=== PATIENT | female | born 1945 | race Caucasian/White ===

== ENCOUNTER → 2016-12-17 | Outpatient (CLI) | payer BC, MEDICAID ==
[~2016-12-17] MED LIST: ATOR40TA59 PO; DICL100G18 TP; DONE5TAB7 PO; ETOD400T PO; EZET10TA18 PO; LOSA50TA6 PO; MIRT15TA3 PO; TRAZ150T49 PO
[2016-12-17 09:17] LABS: BASO # 0.1 x10^3/uL (0.0-0.2); BASO % 1 % (0-3); EOS % 4 % (0-3); HEMATOCRIT 42.5 % (36.0-47.0); HEMOGLOBIN 14.8 g/dL (12.0-15.5); LYMPH # 2.3 x10^3/uL (1.0-4.8); LYMPH % 31 % (24-48); MEAN CORPUSCULAR HEMOGLOBIN 29 pg (25-35); MEAN CORPUSCULAR HGB CONC 35 g/dL (31-37); MEAN CORPUSCULAR VOLUME 83 fL (79-100); MONO % 10 % (0-9); NEUT % 54 % (31-73); PLATELET COUNT 233 x10^3/uL (140-400); RED CELL DISTRIBUTION WIDTH 13.5 % (11.5-14.5); WHITE BLOOD COUNT 7.4 x10^3/uL (4.0-11.0)
[2016-12-17 09:24] LABS: CALCIUM 9.2 mg/dL (8.5-10.1); POTASSIUM 4.6 mmol/L (3.5-5.1)
[2016-12-17 09:28] LABS: INR 1.1 (0.8-1.1); PROTHROMBIN TIME PATIENT 13.1 SEC (11.7-14.0)
[2016-12-17 09:29] LABS: % SAT IRON 27 % (15-34); IRON,SERUM 95 ug/dL (50-170)
[2016-12-17 12:37] LABS: BILIRUBIN,URINE SMALL (NEG); GLUCOSE,URINE NEGATIVE (NEG); NITRITE,URINE NEGATIVE (NEG); PH,URINE 5.5; PROTEIN,URINE NEGATIVE (NEG-TRACE); UROBILINOGEN,URINE 0.2 mg/dL (0.2 mg/dL)
[2016-12-17 12:58] LABS: BACTERIA,URINE 0 /HPF (0-FEW); RBC,URINE 0 /HPF (0-2); SQUAMOUS EPITHELIAL CELL,UR FEW /LPF
--- NOTE | 2016-12-17 13:33 | RAD ---
Indication cough for 2 months. Preop evaluation. Anticipated joint replacement. PA and lateral views of the chest were obtained. Comparison is made to an exam 03/26/2016. The heart and pulmonary vessels are within normal limits. There are calcified left hilar lymph nodes. There is a retrosternal nodule, probably representing a calcified granuloma similar to the previous examination as well. IMPRESSION: No acute finding in the chest
--- NOTE | 2016-12-17 14:08 | EKG ---
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
[2016-12-17 14:33] VITALS: BP 133/89
== END | disposition home or self-care (01) ==
LOC: SURGPAT 10:20
PROVIDERS: ATTEND Orthopaedic Surgery
DX: Z01.818 Encounter for other preprocedural examination (principal); M17.12 Unilateral primary osteoarthritis, left knee; R05 Cough; I10 Essential (primary) hypertension
CPT/HCPCS: 36415; 71020; 80048; 81001; 83540; 83550; 84134; 84466; 85027; 85610; 85651; 85730; 87086; 87641; 93005

== ENCOUNTER 2017-01-08 09:14 | Inpatient (IN) | payer BC, MEDICAID ==
--- NOTE | 2017-01-07 11:40 | PDOC1 ---
History and Physical Date of Admission Date of Admission DATE: 01/08/17 Identification/Chief Complaint Chief Complaint left knee osteoarthritis pain Problems: Source Source: Chart review History of Present Illness History of Present Illness The patient is a 71 year old [id number], retired female with left knee pain. She has been walking often but not attending physical therapy. She has been applying Voltaren gel and taking hydrocodone for the pain. She has daily left knee pain. She has a history of gastric bypass surgery. Past Medical History Cardiovascular: HTN, Hyperlipidemia CENTRAL NERVOUS SYSTEM: Other (memory loss) Past Surgical History Past Surgical History: Hysterectomy (), Other (bilateral rotator cuff repair 2006) Family History Family History: Cancer, Hypertension Social History Smoke: No ALCOHOL: none Drugs: None Current Medications Current Medications Active Scripts Active Reported Trazodone Hcl 150 Mg Tablet 150 Mg PO HS Atorvastatin Calcium 40 Mg Tablet 40 Mg PO HS Mirtazapine 15 Mg Tablet 1 Tab PO QHS Etodolac 400 Mg Tablet 400 Mg PO DAILY Donepezil Hcl 5 Mg Tablet 5 Mg PO HS Zetia (Ezetimibe) 10 Mg Tablet 10 Mg PO HS Losartan Potassium 50 Mg Tablet 50 Mg PO DAILY Voltaren (Diclofenac Sodium) 100 Gm Gel..gram. 1 Gm TP QID Allergies Allergies: Coded Allergies: bupivacaine (Verified Allergy, Intermediate, Rash, 12/14/16) lidocaine (Verified Allergy, Intermediate, Rash, 12/14/16) nickel (Verified Allergy, Intermediate, Rash, 12/14/16) Physical Exam General: Alert, Oriented X3, Cooperative, No acute distress HEENT: Atraumatic, EOMI Lungs: Normal air movement Heart: RRR Abdomen: Soft Extremities: No clubbing, No cyanosis, Normal pulses, Other (LEFT KNEE: there are no masses or detectable effusion. Trace valgus alignment. The left knee shows active range of motion from 5-100 degrees. There is crepitus felt with motion and pain at the extremes of motion. There is tenderness to palpation along the medial and lateral joint lines. The knee is stable to varus and valgus stress, without subluxation or laxity. Quadriceps and hamstring show normal strength 5/5, with normal muscle tone. RIGHT KNEE: Trace varus alignment alignment, no masses and no effusion. No tenderness to palpation. Range of motion is 0-125 degrees, without crepitus or pain at the extremes of motion. The knee is stable to varus and valgus stress without subluxation or laxity. Muscle strength is normal (5/5) for quadriceps and hamstrings, and muscle tone is normal. The skin is normal with no scars, rashes, lesions or ulcers. Light touch sensation is intact. No edema and no varicosities. Dorsalis pedis pulse is intact and capillary refill is normal.) Skin: No rashes, No breakdown, No significant lesion Neuro: Normal speech, Sensation intact Psych/Mental Status: Mental status NL, Mood NL VTE Prophylaxis Ordered VTE Prophylaxis Devices: Yes VTE Pharmacological Prophylaxi: Yes Assessment/Plan Assessment/Plan Left knee osteoarthritis pain. The left knee is symptomatic with osteoarthritis. She has tried nonoperative treatment without success. She was considering total knee arthroplasty when she was in [place] but was trying to lose more weight before doing that. She is down to 221 pounds, and her BMI is now approximately 37. I think it is reasonable to consider proceeding since she is 71 years old. She has symptomatic knee arthritis that bothers her most days, and prevents her from walking for exercise. She tried topical NSAIDs, and she has been taking occasional hydrocodone for the pain. She does have some hypersensitive skin and metal sensitivity, so I would recommend Oxinium, journey two knee arthroplasty. I also will check some additional labs including prealbumin and transferrin due to her prior gastric bypass. I discussed that there are increased risks of infection, rather complications due to prior gastric bypass. Her right knee has some osteoarthritis radiographically but is asymptomatic, so no treatment is required. She has good range of motion and strength on the right knee. We discussed the potential risks of infection, neurovascular injury, bleeding, blood clots, need for revision surgery, or other potential surgical or anesthetic complications. Her daughter was here and we discussed the expected rehabilitation and recovery. All of their questions were answered and they desire to proceed with a left total knee arthroplasty at a mutually convenient date. We will request medical clearance from her primary physician, Dr. Kim. KAITLYN GUILLEN Jan 07, 2017 11:40
[~2017-01-08] VITALS: Ht 165.1 cm; Wt 102.1 kg
[2017-01-08] VITALS (7 sets, daily range): BP systolic 109–159; BP diastolic 65–93
[~2017-01-08 09:14] MED LIST changes: +CELECOXIB 200 MG CAPSULE. PO PRN; +HYDROcodone/APAP 7.5/325MG 1 TAB TABLET PO PRN; +IV RINGERS,LACTATED 1000ML 1,000 ML IV SCH; +PROCHLORPERAZINE 10 MG/2 ML VIAL. IV PRN; +TRANEXAMIC ACID 1,000 MG in IV NS 50ML -- 1ST BAG INJ ONE; +TRANEXAMIC ACID 1,000 MG in IV NS 50ML -- 2ND BAG INJ ONE; +fentaNYL PF VIAL 100 MCG/2 ML VIAL IV PRN
[2017-01-08] MEDS ORDERED: CELE200C PO (10:10)
[2017-01-08] MEDS ORDERED: DEXAMETHASONE SOD PHOS 20 MG/5 ML VIAL. ONE (11:14)
[2017-01-08] MEDS ORDERED: PROPOFOL 20 ML IV ONE (11:14)
[2017-01-08] MEDS ORDERED: FAMOTIDINE 20 MG/2 ML VIAL ONE (11:14)
[2017-01-08] MEDS ORDERED: ROCURONIUM 50 MG/5 ML VIAL. ONE (11:15)
[2017-01-08] MEDS ORDERED: MIDAZOLAM HCL/PF 2 MG/2 ML VIAL. ONE (11:15)
[2017-01-08] MEDS ORDERED: ONDANSETRON PF 4 MG/2 ML VIAL. ONE (11:15)
[2017-01-08] MEDS ORDERED: fentaNYL PF VIAL 100 MCG/2 ML VIAL ONE ×2 (11:15→12:37)
[2017-01-08] MEDS ORDERED: ePHEDrine PF IN SALINE 50 MG/5 ML DISP.SYRIN IV ONE (12:03)
[2017-01-08] MEDS ORDERED: GLYCOPYRROLATE 1 MG/5 ML VIAL. ONE (12:07)
[2017-01-08] MEDS ORDERED: VANCOMYCIN 1 GM VIAL. ONE (12:28)
[2017-01-08] MEDS ORDERED: TOBRAMYCIN POWDER 1.2 GM VIAL. ONE (12:29)
[2017-01-08] MEDS ORDERED: NEOSTIGMINE METHYLSULFATE 5 MG/5 ML SYRINGE. ONE (13:20)
[2017-01-08] MEDS ORDERED: DESFLURANE > 120 MINUTES IH ONE (13:40)
--- NOTE | 2017-01-08 13:53 | PDOC4 ---
Operative Note Operative Note Date of Procedure: January 08, 2017 Pre-Op Diagnosis: Osteoarthritis left knee Post-Op Diagnosis: Osteoarthritis left knee Procedure: left total knee arthroplasty Surgeon: Gerald Cristina MD Teleradiologist: Nathalie Michelle PA-C Anesthesia: General EBL: 100 mL Specimens Obtained: left knee bone and soft tissue Complications: none Implant Company: [employer] Drains: Hemovac Tourniquet time: 51 Minutes Tourniquet Pressure: 350 mm Hg Indications for Procedure: Arthritis pain unrelieved by nonoperative management. Findings: Severe osteoarthritis with bone on bone contact in all three compartments Implants used: Size 4 left bicruciate stabilized Journey II BCS Oxinium femoral component, size 4 left Journey nonporous tibial baseplate, size 3-4 11 mm left Journey II BCS XLPE articular insert, 35 mm oval Luz II resurfacing patellar component Procedure in Detail: The patient was identified in the preoperative holding area, and the correct left lower extremity was marked by me. The patient was taken to the operating room where the patient was anesthetized by the Department of Anesthesia. Preoperative antibiotics were given intravenously. Tranexamic acid 1 g was given intravenously for intraoperative hemostasis. A "time-out" procedure was performed. The patient was positioned supine on the operative table with a tourniquet on the upper left thigh. The left lower limb was thoroughly prepped and draped in sterile fashion. An impervious stockinet and adhesive drape were used such that the skin was entirely covered. An Garibay leg berger was used. The operating team wore personal exhaust-ventilated hoods. The tourniquet was inflated to 350 Hg. A midline skin incision was made with a scalpel using the patella and tibial tubercle as landmarks. Electrocautery was used for hemostasis. My assistant spa director used rake retractors. A medial parapatellar arthrotomy incision was used with extension into the distal quadriceps tendon. The patella was retracted laterally and Hohmann retractors were now used by my assistant spa director. Excess synovium, the menisci, and the cruciate ligaments were resected sharply. The patella was assessed and excess synovium and osteophytes around the patellar articulation were removed. The patella was measured with a caliper, cut freehand with a saw using caliper measurements, sized, and then drilled for an oval three-pegged patella component. Whitesides's line was assessed on the femur. An intra-medullary 5 degree cutting guide was pinned to the femur, and a distal femoral cut was made with an oscillating saw. An additional 4 mm resection was used due to the deep femoral sulcus, and deficient femoral condyle. My assistant spa director held Hohmann retractors and an Army-[place] retractor to protect the medial and lateral collateral ligaments, the patellar tendon, the skin and the other soft tissues. An anterior referencing guide was applied with external rotation of 3 to match Whitesides line. A 5-in-1 Journey II cutting guide was then applied and pinned to the femur. The posterior, anterior, and all chamfer cuts were made with the oscillating saw. An extramedullary guide was pinned to the tibia and rotational alignment and the planned resection thickness assessed. An external alignment margarita was used to verify the planned cut in the varus-valgus plane and regarding posterior slope referencing the tibial tubercle, the tibial shaft, the ankle joint, and the second metatarsal. The upper tibia was cut made with an oscillating saw. My assistant spa director held Hohmann retractors and a posterior cruciate ligament retractor to protect the medial and lateral collateral ligaments, the patellar tendon, the skin, the peroneal nerve and the other soft tissues. The upper tibia was sized with a trial baseplate. The posterior compartment was cleared of osteophytes and loose bodies, and posterior capsule released. Sharee-articular injection was used in the posterior compartment. The box cut for a posterior stabilized component was made. A preliminary reduction was performed with a trial femur, trial tibial baseplate and trial polyethylene. Soft-tissue balancing was now performed, and extension and rotation of the alignments was checked using a guide margarita in the tibial trial and a guide pin in the femur. A medial release was required, using a 10 blade scalpel, and a Pollard elevator to elevate the medial structures from the upper medial tibia. The stability was assessed using different thicknesses of tibial articular surface to find satisfactory stability and good range of motion. The rotation of the tibial component was marked on the upper tibia. Final trial reduction was now performed verifying patella tracking and tibiofemoral stability and alignment. The tibia preparation was completed with a drill, saw, and fin punch at the previously noted rotation. The final implants were verified and opened. Outer gloves were changed by the operating team. The bone cuts were washed thoroughly with the [employer] InterPulse device and dried. Two packages of George [employer] Nephew Rally HV bone cement were mixed in powdered form with 1 gm of Vancomycin and 1.2 g tobramycin, then vacuum-mixed with the monomer , and placed into a cement gun. The cut surfaces of the bone were thoroughly dried with Talavera-tip suction and with laparotomy sponges for cement interdigitation. The final components were cemented into place. The knee was kept at full extension while the cement hardened, and excess cement was removed. Tranexamic acid 1 g was redosed intravenously for additional intraoperative hemostasis. The tourniquet was released, and electrocautery was used for hemostasis. A final check of [id number] and stability was made, and the polyethylene implant final size was chosen. The polyethylene implant was secured to the tibial baseplate, and the knee was reduced a final time. Thorough irrigation was used. A Hemovac was inserted. No periarticular injection was used in this patient due to her allergy to all mirza, and normally Ropivacaine would be used. The arthrotomy was closed with interrupted [id number] #1 PDS suture. The arthrotomy incision was then run with #1 STRATAFIX Symmetric PDS Plus Knotless suture. The subcutaneous tissues were closed with #2-0 Vicryl by my assistant spa director. The skin was approximated with STRATAFIX Spiral MONOCRYL Plus Knotless suture by my assistant spa director. The skin incision was then covered and reinforced with Dermabond Prineo mesh skin closure dressing. A bulky sterile gauze dressing was applied. Needle and sponge counts were correct. GERALD CRISTINA MD Jan 08, 2017 13:53
[2017-01-08] MEDS: fentaNYL PF VIAL 100 MCG/2 ML VIAL IV PRN ×5 (14:12→18:43)
[2017-01-08] MEDS: MORPHINE SULFATE 2 MG/ML DISP.SYRIN. IV PRN ×2 (14:16→14:27)
[2017-01-08] MEDS ORDERED: IV DEXTROSE 5 %-0.45 % NACL 1,000 ML IV SCH (14:21)
[2017-01-08] MEDS ORDERED: ZOLPIDEM 5 MG TABLET. PO PRN (14:30)
[2017-01-08] MEDS ORDERED: MORPHINE SULFATE 4 MG/ML DISP.SYRIN. IV PRN ×2 (14:30)
[2017-01-08] MEDS ORDERED: PROCHLORPERAZINE 10 MG/2 ML VIAL. IV PRN (14:30)
[2017-01-08] MEDS ORDERED: traMADol 50 MG TABLET PO PRN ×2 (14:30)
[2017-01-08] MEDS ORDERED: oxyCODONE/APAP 7.5/325 1 TAB TABLET PO PRN (14:30)
[2017-01-08] MEDS ORDERED: ACETAMINOPHEN 325 MG TABLET. PO PRN (14:30)
[2017-01-08] MEDS ORDERED: CALCIUM CARBONATE 500 MG TAB.CHEW PO PRN (14:30)
[2017-01-08] MEDS ORDERED: MORPHINE SULFATE 2 MG/ML DISP.SYRIN. IV PRN (14:30)
[2017-01-08] MEDS ORDERED: 0.9 % SODIUM CHLORIDE 10 ML DISP.SYRIN. IV PRN (14:30)
[2017-01-08] MEDS ORDERED: DEXTROSE 50% 25 GM / 50ML DISP.SYRIN. IV PRN (14:30)
[2017-01-08] MEDS ORDERED: HYDROcodone/APAP 10/325 1 TAB TABLET PO PRN (14:30)
[2017-01-08] MEDS ORDERED: fentaNYL PF VIAL 100 MCG/2 ML VIAL IV PRN ×2 (14:30)
[2017-01-08] MEDS ORDERED: diphenhydrAMINE 50 MG/ML VIAL IV PRN (14:30)
[2017-01-08] MEDS ORDERED: PROCHLORPERAZINE 5 MG TABLET. PO PRN (14:30)
[2017-01-08] MEDS ORDERED: MORPHINE SULFATE 10 MG/ML VIAL. IV PRN (14:30)
[2017-01-08] MEDS ORDERED: METOCLOPRAMIDE HCL 10 MG/2 ML VIAL. IV PRN (14:30)
[2017-01-08] MEDS: HYDROmorphone 2 MG/ML VIAL IV PRN ×4 (14:37→15:19)
[2017-01-08] MEDS ORDERED: MORPHINE SULFATE 10 MG/ML VIAL. IV ONE (14:45)
[2017-01-08] MEDS: SENNOSIDES/DOCUSATE 8.6/50MG TABLET. PO SCH (15:00)
[2017-01-08] MEDS: MULTIVITAMIN with MINERAL TABLET. PO SCH (15:00)
--- NOTE | 2017-01-08 15:04 | RAD ---
Left knee radiograph 01/08/2017 at 1440 hours Indication: Postoperative evaluation. Comparison: None available Technique: 2 views including an AP and lateral view of the knee are provided. Findings: A left total knee arthroplasty is identified with components in expected alignment. No periprosthetic lucency is identified. No periprosthetic fracture is present. Surgical drain overlies the left lateral knee. Patellar resurfacing is noted. Subcutaneous gas and edema are compatible with recent postoperative changes. Impression: Expected postoperative changes from left total knee arthroplasty. No periprosthetic fracture.
[2017-01-08] MEDS: FERROUS SULFATE 325 MG TABLET. PO SCH (17:00)
[2017-01-08] MEDS: LOSARTAN POTASSIUM 50 MG TABLET. PO SCH (18:47)
[2017-01-08] MEDS: DONEPEZIL HCL 5 MG TABLET. PO SCH (22:02)
[2017-01-08] MEDS: CELECOXIB 200 MG CAPSULE. PO SCH (22:02)
[2017-01-08] MEDS: ASPIRIN ENTERIC COATED 325 MG TABLET.DR. PO SCH (22:02)
[2017-01-08] MEDS: EZETIMIBE 10 MG TABLET. PO SCH (22:03)
[2017-01-08] MEDS: ATORVASTATIN CALCIUM 40 MG TABLET. PO SCH (22:03)
[2017-01-08] MEDS: DICLOFENAC SODIUM 25 MG TABLET.DR PO SCH (22:03)
[2017-01-08] MEDS: traZODone 50 MG TABLET. PO SCH (22:03)
[2017-01-08] MEDS: MIRTAZAPINE 15 MG TABLET PO SCH (22:53)
[2017-01-09 03:01] VITALS: BP 120/74
[2017-01-09] MEDS ORDERED: MAGNESIUM HYDROXIDE 2,400 MG/30 ML ORAL.SUSP. PO PRN (06:00)
[2017-01-09 06:30] VITALS: BP 120/70
[2017-01-09] MEDS: ASPIRIN ENTERIC COATED 325 MG TABLET.DR. PO SCH ×2 (08:54→20:52)
[2017-01-09] MEDS: MULTIVITAMIN with MINERAL TABLET. PO SCH (08:54)
[2017-01-09] MEDS: CELECOXIB 200 MG CAPSULE. PO SCH ×2 (08:54→20:51)
[2017-01-09] MEDS: SENNOSIDES/DOCUSATE 8.6/50MG TABLET. PO SCH (08:54)
[2017-01-09] MEDS: FERROUS SULFATE 325 MG TABLET. PO SCH ×2 (08:54→17:21)
[2017-01-09] MEDS: HYDROcodone/APAP 7.5/325MG 1 TAB TABLET PO PRN (08:55)
[2017-01-09] MEDS: DICLOFENAC SODIUM 25 MG TABLET.DR PO SCH ×2 (08:55→20:52)
--- NOTE | 2017-01-09 10:13 | PDOC ---
PROGRESS NOTES Subjective Subjective Confused today. Didn't realize that she had surgery yesterday. Pain controlled. Objective Vital Signs Vital Signs Date Time Temp Pulse Resp B/P (MAP) Pulse Ox O2 Delivery O2 Flow Rate FiO2 01/09/17 08:55 20 01/09/17 07:42 Room Air 01/09/17 06:30 98.6 59 120/70 (87) 96 2.0 98.6 Physical Exam Dressing dry. Per Radha RN, patient pulled Hemovac out. Good dorsiflexion and plantarflexion of the foot with no evidence of neurovascular injury or DVT. Calves are soft and non-tender. Negative Homans. Peripheral pulses and light touch sensation intact. Imaging Postoperative x-rays reviewed by me, showing satisfactory total knee replacement , with no apparent complications. Assessment Assessment POD #1 TKA Problems: Plan Plan of Care Continue POC including DVT prophylaxis and physical therapy. KAITLYN GUILLEN Jan 09, 2017 10:13
[2017-01-09] MEDS: oxyCODONE/APAP 5/325 1 TAB TABLET PO PRN ×2 (12:57→17:22)
[2017-01-09] MEDS ORDERED: BISACODYL 10 MG SUPP.RECT. PR PRN (16:00)
[2017-01-09 18:12] VITALS: BP 116/73
[2017-01-09] MEDS: MIRTAZAPINE 15 MG TABLET PO SCH (20:51)
[2017-01-09] MEDS: ATORVASTATIN CALCIUM 40 MG TABLET. PO SCH (20:51)
[2017-01-09] MEDS: DONEPEZIL HCL 5 MG TABLET. PO SCH (20:51)
[2017-01-09] MEDS: traZODone 50 MG TABLET. PO SCH (20:52)
[2017-01-09] MEDS: EZETIMIBE 10 MG TABLET. PO SCH (20:52)
[2017-01-10 05:00] VITALS: BP 133/64
[2017-01-10 07:22] LABS: HEMATOCRIT 32.6 % (36.0-47.0); HEMOGLOBIN 10.9 g/dL (12.0-15.5)
[2017-01-10] MEDS: FERROUS SULFATE 325 MG TABLET. PO SCH ×2 (09:03→16:48)
[2017-01-10] MEDS: MULTIVITAMIN with MINERAL TABLET. PO SCH (09:04)
[2017-01-10] MEDS: ASPIRIN ENTERIC COATED 325 MG TABLET.DR. PO SCH ×2 (09:04→21:09)
[2017-01-10] MEDS: CELECOXIB 200 MG CAPSULE. PO SCH ×2 (09:04→21:09)
[2017-01-10] MEDS: DICLOFENAC SODIUM 25 MG TABLET.DR PO SCH ×2 (09:04→21:08)
[2017-01-10] MEDS: SENNOSIDES/DOCUSATE 8.6/50MG TABLET. PO SCH (09:04)
[2017-01-10] MEDS: LOSARTAN POTASSIUM 50 MG TABLET. PO SCH (09:05)
--- NOTE | 2017-01-10 12:34 | PDOC ---
PROGRESS NOTES Subjective Subjective Doing well. Only reports mild pain increase from yesterday. Objective Vital Signs Vital Signs Date Time Temp Pulse Resp B/P (MAP) Pulse Ox O2 Delivery O2 Flow Rate FiO2 01/10/17 09:05 61 133/64 01/10/17 05:00 98.0 19 96 Room Air 98.0 01/09/17 06:30 2.0 Physical Exam Expected swelling. Pain catheter and drain have been removed. Incision with spotty drainage only from drain sites. Prineo intact and dry. Calf soft and nontender. Negative Homans sign. Good AROM ankle. Peripheral pulses and light touch sensation intact. Labs Laboratory Tests Test 01/10/17 07:06 Hemoglobin 10.9 g/dL (12.0-15.5) Hematocrit 32.6 % (36.0-47.0) Mean Corpuscular Hemoglobin Concent 33 g/dL (31-37) Laboratory Tests Test 01/10/17 07:06 Hemoglobin 10.9 g/dL (12.0-15.5) Hematocrit 32.6 % (36.0-47.0) Mean Corpuscular Hemoglobin Concent 33 g/dL (31-37) Imaging X-rays independently reviewed by me and show satisfactory TKA alignment and no apparent complications. Assessment Assessment POD2, TKA Problems: Plan Plan of Care Continue DVT prophylaxis and physical therapy. Planned discharge tomorrow. Office F/U in 10-14 days. GERALD SAPP MD Jan 10, 2017 12:34
[2017-01-10] MEDS: HYDROcodone/APAP 7.5/325MG 1 TAB TABLET PO PRN (12:35)
[2017-01-10 18:03] VITALS: BP 115/74
[2017-01-10] MEDS: DONEPEZIL HCL 5 MG TABLET. PO SCH (21:09)
[2017-01-10] MEDS: ATORVASTATIN CALCIUM 40 MG TABLET. PO SCH (21:09)
[2017-01-10] MEDS: MIRTAZAPINE 15 MG TABLET PO SCH (21:09)
[2017-01-10] MEDS: traZODone 50 MG TABLET. PO SCH (21:09)
[2017-01-10] MEDS: EZETIMIBE 10 MG TABLET. PO SCH (21:09)
[2017-01-11 06:09] VITALS: BP 126/79
[2017-01-11 07:38] LABS: HEMATOCRIT 31.3 % (36.0-47.0); HEMOGLOBIN 10.7 g/dL (12.0-15.5)
[2017-01-11] MEDS: HYDROcodone/APAP 7.5/325MG 1 TAB TABLET PO PRN (08:52)
[2017-01-11] MEDS: MULTIVITAMIN with MINERAL TABLET. PO SCH (08:52)
[2017-01-11] MEDS: ASPIRIN ENTERIC COATED 325 MG TABLET.DR. PO SCH (08:52)
[2017-01-11] MEDS: SENNOSIDES/DOCUSATE 8.6/50MG TABLET. PO SCH (08:52)
[2017-01-11] MEDS: CELECOXIB 200 MG CAPSULE. PO SCH (08:52)
[2017-01-11] MEDS: DICLOFENAC SODIUM 25 MG TABLET.DR PO SCH (08:52)
[2017-01-11] MEDS: FERROUS SULFATE 325 MG TABLET. PO SCH (08:53)
[2017-01-11] MEDS: LOSARTAN POTASSIUM 50 MG TABLET. PO SCH (08:53)
[2017-01-11 12:10] VITALS: BP 106/74
--- NOTE | 2017-01-11 14:13 | PDOC ---
PROGRESS NOTES Subjective Subjective Doing better today. Pain is controlled. Objective Vital Signs Vital Signs Date Time Temp Pulse Resp B/P (MAP) Pulse Ox O2 Delivery O2 Flow Rate FiO2 01/11/17 12:10 97.8 91 20 106/74 (85) 95 Room Air 97.8 01/10/17 20:02 2.0 Physical Exam Prineo dressing dry and intact. Calf soft and nontender with a negative Oseas's sign. Good dorsiflexion and plantarflexion with no evidence of neurovascular injury. Peripheral pulses and light touch sensation intact. Labs Laboratory Tests Test 01/10/17 07:06 01/11/17 06:50 Hemoglobin 10.9 g/dL (12.0-15.5) 10.7 g/dL (12.0-15.5) Hematocrit 32.6 % (36.0-47.0) 31.3 % (36.0-47.0) Mean Corpuscular Hemoglobin Concent 33 g/dL (31-37) 34 g/dL (31-37) Laboratory Tests Test 01/11/17 06:50 Hemoglobin 10.7 g/dL (12.0-15.5) Hematocrit 31.3 % (36.0-47.0) Mean Corpuscular Hemoglobin Concent 34 g/dL (31-37) Assessment Assessment POD #3 left TKA Problems: Plan Plan of Care Continue POC including DVT ppx with ASA 325mg twice daily and therapy. Discharge this afternoon to daughter's house with home health. KAITLYN GUILLEN Jan 11, 2017 14:13
--- NOTE | 2017-01-11 14:15 | PDOC3 ---
Discharge Summary Visit Information Date of Admission: Jan 08, 2017 Date of Discharge: Jan 11, 2017 Admitting Diagnosis: left knee osteoarthritis pain Brief Hospital Course Allergies Allergies Coded Allergies Type Severity Reaction Last Updated Verified bupivacaine Allergy Intermediate Rash 01/08/17 Yes lidocaine Allergy Intermediate Rash 01/08/17 Yes nickel Allergy Intermediate Rash 01/08/17 Yes Vital Signs Vital Signs Date Time Temp Pulse Resp B/P (MAP) Pulse Ox O2 Delivery O2 Flow Rate FiO2 01/11/17 12:10 97.8 91 20 106/74 (85) 95 Room Air 97.8 01/10/17 20:02 2.0 Lab Results Laboratory Tests Test 01/10/17 07:06 01/11/17 06:50 Hemoglobin 10.9 g/dL (12.0-15.5) 10.7 g/dL (12.0-15.5) Hematocrit 32.6 % (36.0-47.0) 31.3 % (36.0-47.0) Mean Corpuscular Hemoglobin Concent 33 g/dL (31-37) 34 g/dL (31-37) Laboratory Tests Test 01/11/17 06:50 Hemoglobin 10.7 g/dL (12.0-15.5) Hematocrit 31.3 % (36.0-47.0) Mean Corpuscular Hemoglobin Concent 34 g/dL (31-37) Brief Hospital Course 71 year old female who presented with left knee osteoarthritis, for elective total knee arthroplasty. The patient underwent left total knee arthroplasty under general anesthesia the day of admission. Perioperative antibiotics and DVT prophylaxis were used. Postoperatively physical therapy and case management were consulted. The patient progressed and is stable for discharge. Discharge Information Condition at Discharge: Stable Follow Up: Weeks (2) Disposition/Orders: D/C to Home w/ HH (daughter's house) Scheduled Atorvastatin Calcium (Atorvastatin Calcium), 40 MG PO HS, (Reported) Celecoxib (Celebrex), 1 CAP PO ONCE, (Reported) Diclofenac Sodium (Voltaren), 1 GM TP QID, (Reported) Donepezil Hcl (Donepezil Hcl), 5 MG PO HS, (Reported) Etodolac (Etodolac), 400 MG PO DAILY, (Reported) Ezetimibe (Zetia), 10 MG PO HS, (Reported) Losartan Potassium (Losartan Potassium), 50 MG PO DAILY, (Reported) Mirtazapine (Mirtazapine), 1 TAB PO QHS, (Reported) Trazodone Hcl (Trazodone Hcl), 150 MG PO HS, (Reported) Patient Instructions Patient Instructions Patient Instructions Continue to WBAT with walker. Keep dressing dry and intact. F/U with [facility] in 10-14 days. Call for appointment. Physical therapy for TKA Continue DVT prophylaxis with aspirin 325mg twice daily. KAITLYN GUILLEN Jan 11, 2017 14:15
--- NOTE | 2017-01-11 15:12 | PATHOLOGY ---
PATHOLOGY REPORT * * * * * * * * FINAL DIAGNOSIS: Bone and soft tissue, "left knee tissue," joint resection: - Degeneration of cartilage consistent with degenerative joint disease. (SHA:mgr; 01/11/2017) REPORT ELECTRONICALLY SIGNED BY: Natan Angeles M.D. DATE/TIME: 01/11/2017 15:12 * * * * * * * * GROSS PATHOLOGY: The specimen is received in formalin, labeled "Judy left knee tissue", and consists of several bony and some soft tissues representing portions of a resected knee joint having an aggregate weight of 61 g. One of the larger bone fragments consists of a portion of tibial plateau measuring 7 3 1.4 cm. Fragments of femoral condyles measure up to 5.8 4 1.3 cm. A portion of patella measures 4.2 2.5 0.7 cm. Attached to the peripheral aspect of some soft tissues are small portions of the synovium. Fragments of the menisci are not grossly identified. Articular surfaces of several bone fragments of scattered irregular granular and pitted regions associated with partial loss or thinning of overlying cartilage. One irregular area measures 4.5 2.5 cm. A smooth glossy region consistent with eburnated bone measures 1.2 1.2 cm. Several regions of peripheral bone have elevated nodular ridges of osteocartilaginous hypertrophy. Local Announcer sections are patel 9 bmitted designated A1 following decalcification of bone. ([facility]; 01/10/2017) INITIAL CPT CODE(S): A; 05531, 48940 Professional services performed [place] [address] Technical services performed by [facility] at [address] [place] [address] [address], [place] [address]. SPECIMEN(S) RECEIVED: A.Left knee tissue CLINICAL HISTORY: Left knee OA PATIENT: JARED ROCK /AGE: 12 1945 (Age: 71) PATIENT #: [id number] ALT CASE #: SPECIMEN COLLECTION DATE: 01/08/2017 SPECIMEN RECEIVED DATE: 01/09/2017 [facility] - [id number] [place] [address] - PHONE: [phone] * * * END OF REPORT * * *
== END 2017-01-11 16:11 | disposition home health service (06) | DRG 470 ==
LOC: OPSVCIP 09:14 → 4 SOUTHEST 15:44
PROVIDERS: ADMIT Orthopaedic Surgery; ATTEND Orthopaedic Surgery
PROC: 0SRD0J9 Replacement of Left Knee Joint with Synthetic Substitute, Cemented, Open Approach (ICD-10-PCS; principal; 2017-01-08 12:30)
DX: M17.12 Unilateral primary osteoarthritis, left knee (principal); I10 Essential (primary) hypertension; E78.5 Hyperlipidemia, unspecified; Z90.710 Acquired absence of both cervix and uterus; Z82.49 Family history of ischemic heart disease and other diseases of the circulatory system; Z98.84 Bariatric surgery status; Z88.8 Allergy status to other drugs, medicaments and biological substances
CPT/HCPCS: 36415; 73560; 85014; 85018; 86850; 86900; 86901; 88305; 88311; J0690; J1100; J1170; J2250; J2270; J2405; J2704; J2710; J3010; J3260; J3370; J3490; J7030; J7120; S0028; 97150; 97530; 97535; C1769

== ENCOUNTER 2017-05-20 15:33 | Inpatient (IN) | payer BC, MEDICAID ==
[~2017-05-20] VITALS: Ht 162.6 cm; Wt 94.8 kg
[~2017-05-20 15:33] MED LIST changes: +CELE200C PO; -CELECOXIB 200 MG CAPSULE. PO PRN; -HYDROcodone/APAP 7.5/325MG 1 TAB TABLET PO PRN; -IV RINGERS,LACTATED 1000ML 1,000 ML IV SCH; -PROCHLORPERAZINE 10 MG/2 ML VIAL. IV PRN; -TRANEXAMIC ACID 1,000 MG in IV NS 50ML -- 1ST BAG INJ ONE; -TRANEXAMIC ACID 1,000 MG in IV NS 50ML -- 2ND BAG INJ ONE; -fentaNYL PF VIAL 100 MCG/2 ML VIAL IV PRN
[2017-05-20 16:11] LABS: BILIRUBIN,URINE SMALL (NEG); GLUCOSE,URINE NEGATIVE (NEG); NITRITE,URINE NEGATIVE (NEG); PROTEIN,URINE NEGATIVE (NEG-TRACE); UROBILINOGEN,URINE 0.2 mg/dL (0.2 mg/dL)
--- NOTE | 2017-05-20 16:12 | EKG ---
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
[2017-05-20] MEDS ORDERED: fentaNYL PF VIAL 100 MCG/2 ML VIAL IV ONE (16:15)
[2017-05-20] MEDS ORDERED: IV NORMAL SALINE 500ML BAG 500 ML IV ONE (16:15)
[2017-05-20 16:19] LABS: BASO # 0.1 x10^3/uL (0.0-0.2); BASO % 1 % (0-3); EOS % 1 % (0-3); HEMATOCRIT 44.3 % (36.0-47.0); HEMOGLOBIN 14.6 g/dL (12.0-15.5); LYMPH # 1.3 x10^3/uL (1.0-4.8); LYMPH % 10 % (24-48); MEAN CORPUSCULAR HEMOGLOBIN 27 pg (25-35); MEAN CORPUSCULAR HGB CONC 33 g/dL (31-37); MEAN CORPUSCULAR VOLUME 83 fL (79-100); MONO % 6 % (0-9); NEUT % 83 % (31-73); PLATELET COUNT 212 x10^3/uL (140-400); RED BLOOD COUNT 5.36 x10^6/uL (3.50-5.40); RED CELL DISTRIBUTION WIDTH 15.1 % (11.5-14.5); WHITE BLOOD COUNT 12.7 x10^3/uL (4.0-11.0)
[2017-05-20 16:32] LABS: BACTERIA,URINE 0 /HPF (0-FEW); RBC,URINE 0 /HPF (0-2); SQUAMOUS EPITHELIAL CELL,UR OCC /LPF; WBC,URINE 0 /HPF (0-4)
--- NOTE | 2017-05-20 16:34 | RAD ---
Indication: Chest pain on the left side. Time of exam 1622 hours. Correlation is made prior study 12/17/2016. The heart size is stable. Calcified granuloma left lung apex is noted. There are some calcified lymph nodes in the left hilum as well consistent with prior granulomatous exposure. No infiltrate is detected. No effusion or pneumothorax is seen. There are postop changes in the upper abdomen. Impression: No acute cardiopulmonary process is detected.
[2017-05-20 16:45] LABS: ALBUMIN 3.9 g/dL (3.4-5.0); DIRECT BILIRUBIN 0.1 mg/dL (0.0-0.2); TOTAL BILIRUBIN 0.4 mg/dL (0.2-1.0); TOTAL PROTEIN 7.4 g/dL (6.4-8.2)
[2017-05-20 17:01] LABS: POTASSIUM ISTAT 3.6 mmol/L (3.5-5.0)
--- NOTE | 2017-05-20 17:10 | ED.ADGEN ---
Past Medical History Past Medical History: Asthma, Dementia, High Cholesterol, Hypertension Past Surgical History: Hysterectomy, Knee Replacement, Other Additional Past Surgical Histo: L KNEE REPLACEMENT, BILATERAL ROTATOR CUFF SX Alcohol Use: None Drug Use: None Adult General Chief Complaint Chief Complaint: ABDOMINAL PAIN HPI HPI Patient is a 71 year old female who presents with abdominal pain and chest pain. The patient initially was coming to the hospital for abdominal pain that patient believes started an hour prior to arrival, left lower quadrant. The daughter arrived the patient's house and found her clutching her left lower abdomen. She had an episode of nausea and vomiting, denies dysuria or increased urinary frequency. Her prior abdominal surgeries include a staple of her stomach for weight loss decades ago. Then patient stated that she had left- sided chest pain with radiation to her left arm earlier today in this continues. The patient had not communicated this to the daughter and this was the first she had heard of it. The patient states it is achy and sharp, left- sided and has associated numbness of her left arm. No prior coronary artery disease, no history of lung disease. Her primary care is at [facility] office Review of Systems Review of Systems Constitutional: Denies fever or chills Eyes: Denies eye pain or discharge HENT: Denies nasal congestion or sore throat Respiratory: Denies cough or shortness of breath [] Cardiovascular: History of present illness GI: per hpi : Denies dysuria Musculoskeletal: Denies back pain Extremities: denies joint pain [] Integument: Denies rash Neurologic: Denies headache, denies focal weakness , denies sensory changes [] Current Medications Current Medications Current Medications Medications (Trade) Dose Ordered Sig/Ginger Start Time Stop Time Status Last Admin Dose Admin Fentanyl Citrate (Fentanyl 2ml Vial) 50 mcg 1X ONCE 05/20/17 16:15 05/20/17 16:16 DC 05/20/17 16:24 50 MCG Info (Do NOT chart on this entry -- for MONITORING) 1 each PRN DAILY PRN 05/20/17 17:30 05/22/17 17:29 Iohexol (Omnipaque 300 Mg/ml) 75 ml 1X ONCE 05/20/17 17:15 05/20/17 17:16 DC 05/20/17 17:32 60 ML Morphine Sulfate 4 mg 1X ONCE 05/20/17 18:00 05/20/17 18:01 DC 05/20/17 18:01 4 MG Piperacillin Sod/ Tazobactam Sod (Zosyn Per Pharmacy) 1 each PRN DAILY PRN 05/20/17 18:15 Piperacillin Sod/ Tazobactam Sod (Zosyn) 3.375 gm 1X ONCE 05/20/17 18:30 05/20/17 18:31 DC 05/20/17 18:29 3.375 GM Sodium Chloride 1,000 ml @ 75 mls/hr 1X ONCE 05/20/17 18:30 05/21/17 07:49 05/20/17 18:30 75 MLS/HR Allergies Allergies Allergies Coded Allergies Type Severity Reaction Last Updated Verified bupivacaine Allergy Intermediate Rash 01/08/17 Yes lidocaine Allergy Intermediate Rash 01/08/17 Yes nickel Allergy Intermediate Rash 01/08/17 Yes Physical Exam Physical Exam Constitutional: Well developed, well nourished, appears uncomfortable, non- toxic appearance. [] HENT: Normocephalic, atraumatic, bilateral external ears normal, oropharynx moist, no oral exudates, nose normal. [] Eyes: PERRLA, EOMI, conjunctiva normal, no discharge. [] Neck: Normal range of motion, no tenderness, supple, no stridor. [] Cardiovascular:Heart rate regular with regular rhythm, no murmur, no ttp Lungs & Thorax: Bilateral breath sounds clear to auscultation, no wheeze or crackles Abdomen: Bowel sounds normal, soft, nondistended, ttp LLQ, voluntary guarding, neg mcburneys, neg murphys Skin: Warm, dry, no erythema, no rash. [] Back: No tenderness, no CVA tenderness. [] Extremities: No tenderness, no cyanosis, no clubbing, ROM intact, no edema. [] Neurologic: Alert and oriented but appears confused about when symptoms started , normal motor function, normal sensory function, no focal deficits noted. [] Current Patient Data Vital Signs Vital Signs Date Time Temp Pulse Resp B/P (MAP) Pulse Ox O2 Delivery O2 Flow Rate FiO2 05/20/17 18:01 18 97 Room Air 05/20/17 17:12 77 142/74 (96) 05/20/17 15:47 97.7 97.7 Lab Values Laboratory Tests Test 05/20/17 15:35 05/20/17 16:05 05/20/17 16:10 05/20/17 16:58 Urine Color Yellow Urine Clarity Clear Urine pH 6.0 Urine Specific [place] 1.010 Urine Protein Negative mg/dL (NEG-TRACE) Urine Glucose (UA) Negative mg/dL (NEG) Urine Ketones (Stick) Negative mg/dL (NEG) Urine Blood Negative (NEG) Urine Nitrite Negative (NEG) Urine Bilirubin Small (NEG) Urine Urobilinogen Dipstick 0.2 mg/dL (0.2 mg/dL) Urine Leukocyte Esterase Negative (NEG) Urine RBC 0 /HPF (0-2) Urine WBC 0 /HPF (0-4) Urine Squamous Epithelial Cells Occ /LPF Urine Bacteria 0 /HPF (0-FEW) White Blood Count 12.7 x10^3/uL (4.0-11.0) H Red Blood Count 5.36 x10^6/uL (3.50-5.40) Hemoglobin 14.6 g/dL (12.0-15.5) Hematocrit 44.3 % (36.0-47.0) Mean Corpuscular Volume 83 fL (79-100) Mean Corpuscular Hemoglobin 27 pg (25-35) Mean Corpuscular Hemoglobin Concent 33 g/dL (31-37) Red Cell Distribution Width 15.1 % (11.5-14.5) H Platelet Count 212 x10^3/uL (140-400) Neutrophils (%) (Auto) 83 % (31-73) H Lymphocytes (%) (Auto) 10 % (24-48) L Monocytes (%) (Auto) 6 % (0-9) Eosinophils (%) (Auto) 1 % (0-3) Basophils (%) (Auto) 1 % (0-3) Neutrophils # (Auto) 10.6 x10^3uL (1.8-7.7) H Lymphocytes # (Auto) 1.3 x10^3/uL (1.0-4.8) Monocytes # (Auto) 0.7 x10^3/uL (0.0-1.1) Eosinophils # (Auto) 0.1 x10^3/uL (0.0-0.7) Basophils # (Auto) 0.1 x10^3/uL (0.0-0.2) Lactic Acid Level 1.4 mmol/L (0.4-2.0) Troponin I Quantitative < 0.017 ng/mL (0.000-0.055) Lipase 157 U/L (73-393) Total Bilirubin 0.4 mg/dL (0.2-1.0) Direct Bilirubin 0.1 mg/dL (0.0-0.2) Aspartate Amino Transferase (AST) 21 U/L (15-37) Alanine Aminotransferase (ALT) 22 U/L (14-59) Alkaline Phosphatase 78 U/L (46-116) Total Protein 7.4 g/dL (6.4-8.2) Albumin 3.9 g/dL (3.4-5.0) POC Hemoglobin 13.6 g/dL (12-15) POC Hematocrit 40 % (36-40) POC Sodium 142 mmol/L (135-145) POC Potassium 3.6 mmol/L (3.5-5.0) POC Chloride 105 mmol/L (98-110) POC Total CO2 28 mmol/L (23-32) Anion Gap 13 mmol/L (6-14) POC Blood Urea Nitrogen 16 mg/dL (8-26) POC Creatinine 1.2 mg/dL (0.5-1.4) Glucose Level 86 mg/dL (70-99) POC Ionized Calcium (Rica) 1.15 mmol/L (1.13-1.32) Laboratory Tests 05/20/17 16:05 Laboratory Tests 05/20/17 16:58 EKG EKG 89 bpm, sinus, leftward axis, QTC of 466, no appreciable ST elevation or depression, T-wave inversion in V3, biphasic T waves in V4 through V6, interpreted by me threat monitoring analyst shows 79 bpm, no appreciable dysrhythmia, interpreted by me sPO2 96% on room air with good wave form.[] Radiology/Procedures Radiology/Procedures CT abd/pelvis: IMPRESSION: Findings consistent with sigmoid diverticulitis. Extraluminal collections of air are seen adjacent to the sigmoid colon consistent with a perforation. Small amount of free air is seen within the anterior superior abdomen. A 1.2 cm low-attenuation area is seen adjacent to the proximal sigmoid colon which may represent a small abscess. CXR: Impression: No acute cardiopulmonary process is detected. Course & Med Decision Making Course & Med Decision Making Pertinent Labs and Imaging studies reviewed. (See chart for details) Pt given IV morphine for pain, CT abd/pelvis ordered, CXR, labs, ekg. Pain not well controlled, morphine IV ordered. CT showed Diverticulitis, patient was given IV Zosyn, nothing by mouth status. I contacted Dr. Cortes, recommends antibiotics and bowel rest, pt accepted to Dr. Finley. DX: Perforated diverticulitis Unstable angina Abdominal pain total critical care time: 35 minutes. Dragon Disclaimer Dragon Disclaimer This electronic medical record was generated, in whole or in part, using a voice recognition dictation system. KYLER PARK MD May 20, 2017 17:10
[2017-05-20] MEDS ORDERED: IOHEXOL 300 MG/ML 100ML VIAL. IV ONE (17:15)
[2017-05-20] MEDS ORDERED: CONTRAST GIVEN MC PRN (17:30)
[2017-05-20] MEDS ORDERED: MORPHINE SULFATE 4 MG/ML DISP.SYRIN. IV ONE (18:00)
--- NOTE | 2017-05-20 18:09 | RAD ---
CT scan of the abdomen and pelvis with contrast 05/20/2017 CLINICAL HISTORY: Left lower quadrant abdominal pain and vomiting for 3 hours. TECHNIQUE: After the intravenous administration of 75 cc of Omnipaque 300, contiguous, 5 mm axial sections were obtained through the abdomen and pelvis. One or more of the following individualized dose reduction techniques were utilized for this study: 1. Automated exposure control. 2. Adjustment of the mA and/or kV according to patient size. 3. Use of iterative reconstruction technique. FINDINGS: Images through the lung bases demonstrate minimal dependent subsegmental atelectasis bilaterally. The liver, spleen, pancreas, adrenal glands and kidneys are within normal limits. Moderate atherosclerotic calcification of the abdominal aorta is seen. The abdominal aorta tapers normally. Calcified gallstones are seen within the dependent portions of the gallbladder. Surgical clips are seen throughout the left upper quadrant abdomen consistent with a gastric bypass procedure. The appendix is well-visualized and is within normal limits. A small amount of free air is seen within the anterior abdomen. No free fluid is noted. Scattered diverticula are seen involving the descending and sigmoid colon. Proximal sigmoid colon wall thickening is seen. Increased density is seen within the adjacent fat. These findings are consistent with diverticulitis. Extraluminal collections of air are seen in this area consistent with a perforation. A 1.2 cm low-attenuation area is seen adjacent to the sigmoid colon in this region which may represent a very small abscess. Images through the pelvis demonstrate the urinary bladder distended with urine. Consultations are seen within the pelvis consistent with phleboliths. A small amount of free fluid is seen within the pelvis. Degenerative changes are seen involving the lower thoracic and throughout the lumbar spine and both hips. IMPRESSION: Findings consistent with sigmoid diverticulitis. Extraluminal collections of air are seen adjacent to the sigmoid colon consistent with a perforation. Small amount of free air is seen within the anterior superior abdomen. A 1.2 cm low-attenuation area is seen adjacent to the proximal sigmoid colon which may represent a small abscess. These findings were discussed with Dr. Newton. Electronically signed by: Xavi Desouza MD (05/20/2017 6:06 PM) [facility]
[2017-05-20] MEDS ORDERED: PIP/TAZO PER PHARMACY MC PRN (18:15)
[2017-05-20] MEDS ORDERED: PIPERACILLIN/TAZO IV Push 3.375 GM VIAL. IVP ONE (18:30)
[2017-05-20] MEDS ORDERED: IV NORMAL SALINE 1000ML BAG 1,000 ML IV ONE (18:30)
[2017-05-20 19:00] VITALS: BP 145/95
--- NOTE | 2017-05-20 19:02 | HP ---
ADMIT DATE: 05/20/2017 CHIEF COMPLAINT: Abdominal pain. HISTORY OF PRESENT ILLNESS: The patient is a pleasant 71-year-old female who has abdominal pain for a couple of days now. We did a CAT scan. She has a perforated viscus, perhaps most likely diverticular perforation. She also has an abscess. I have discussed the case with the ER physician. We are going to admit the patient and consult General Surgery and give her IV antibiotics. PAST MEDICAL HISTORY: Diverticulitis. ALLERGIES: None. FAMILY HISTORY: Diabetes. SOCIAL HISTORY: She does not drink, smoke or take drugs. MEDICATIONS: Reviewed. REVIEW OF SYSTEMS: GENERAL: No history of weight change, weakness or fevers. SKIN: No bruising, hair changes or rashes. EYES: No blurred, double or loss of vision. NOSE AND THROAT: No history of nosebleeds, hoarseness or sore throat. HEART: No history of palpitations, chest pain or shortness of breath on exertion. LUNGS: Denies cough, hemoptysis, wheezing or shortness of breath. GASTROINTESTINAL: She complains of abdominal pain. GENITOURINARY: No history of frequency, urgency, hesitancy or nocturia. NEUROLOGIC: Denies history of numbness, tingling, tremor or weakness. PSYCHIATRIC: No history of panic, anxiety or depression. ENDOCRINE: No history of heat or cold intolerance, polyuria or polydipsia. EXTREMITIES: Denies muscle weakness, joint pain, pain on walking or stiffness. PHYSICAL EXAMINATION: VITAL SIGNS: Temperature is afebrile, pulse 92, respirations 18, blood pressure 132/90. GENERAL: She is alert, cooperative. HEART: Normal S1, S2. LUNGS: Clear. ABDOMEN: Soft. Decreased bowel sounds, tender. EXTREMITIES: No edema. SKIN: No rashes. ENDOCRINE: No thyromegaly. LYMPHATICS: No cervical nodes. HEMATOPOIETIC: No bruising. ASSESSMENT AND PLAN: Perforated diverticuli with abscess formation. The patient has been admitted. We will consult General Surgery. IV antibiotics. Continue home meds if she can tolerate p.o., IV fluids, PT, OT, frequent labs. DORA BLANCO DO DR: FARIDA/ezequiel JOB#: [id number] / [id number]
[2017-05-20 19:10] VITALS: BP 145/95
[2017-05-20 23:00] VITALS: BP 132/78
[2017-05-20] MEDS: PIPERACILLIN/TAZO IV Push 3.375 GM VIAL. IVP SCH (23:42)
[2017-05-20] MEDS: ONDANSETRON PF 4 MG/2 ML VIAL. IV PRN (23:45)
[2017-05-20] MEDS: MORPHINE SULFATE 2 MG/ML DISP.SYRIN. IV PRN (23:45)
[2017-05-21] MEDS ORDERED: ETOD400T PO (02:10)
[2017-05-21 03:10] VITALS: BP 158/78
[2017-05-21] MEDS: MORPHINE SULFATE 2 MG/ML DISP.SYRIN. IV PRN ×5 (03:27→22:00)
[2017-05-21] MEDS: PIPERACILLIN/TAZO IV Push 3.375 GM VIAL. IVP SCH ×3 (05:40→21:56)
[2017-05-21] MEDS: ONDANSETRON PF 4 MG/2 ML VIAL. IV PRN (05:40)
[2017-05-21 07:35] VITALS: BP 116/64
--- NOTE | 2017-05-21 08:33 | PDOC2 ---
ADÁN SANDOVAL COLOR GRINDER 05/21/17 0833: CONSULT Date of Consult Date of Consult DATE: 05/21/17 TIME: 08:23 Reason for Consult Reason for Consult: perforated diverticulitis Referring Physician Referring Physician: ER Identification/Chief Complaint Chief Complaint abdominal pain Problems: Source Source: Chart review, Patient History of Present Illness Reason for Visit: Reports new onset of abdominal pain across lower abdomen. No emesis at home. Denies constipation or diarrhea. Aggravated by walking. Last colonoscopy was many years ago. Does not recall a history of diverticulitis. She is a poor historian when it comes to her medical history. Past Medical History Cardiovascular: HTN, Hyperlipidemia CENTRAL NERVOUS SYSTEM: Other Psych: Depression Rheumatologic: Other (arthritis ) Past Surgical History Past Surgical History: Hysterectomy, Other (gastric bypass) Family History Family History: Cancer, Hypertension Social History ALCOHOL: none Drugs: None Current Problem List Problem List Problems Medical Problems: (1) Abdominal abscess Status: Acute (2) Perforation of sigmoid colon due to diverticulitis Status: Acute Current Medications Current Medications Current Medications Fentanyl Citrate (Fentanyl 2ml Vial) 50 mcg 1X ONCE IV Last administered on 16:24; Start 05/20/17 at 16:15; Stop 05/20/17 at 16:16; Status DC Sodium Chloride 500 ml @ 500 mls/hr 1X ONCE IV Last administered on 16:15; Start 05/20/17 at 16:15; Stop 05/20/17 at 17:14; Status DC Iohexol (Omnipaque 300 Mg/ml) 75 ml 1X ONCE IV Last administered on 17:32; Start 05/20/17 at 17:15; Stop 05/20/17 at 17:16; Status DC Info (Do NOT chart on this entry -- for MONITORING) 1 each PRN DAILY PRN MC SEE COMMENTS; Start 05/20/17 at 17:30; Stop 05/22/17 at 17:29 Morphine Sulfate 4 mg 1X ONCE IV Last administered on 05/20/17 18:01; Start 05/20/17 at 18:00; Stop 05/20/17 at 18:01; Status DC Piperacillin Sod/ Tazobactam Sod (Zosyn Per Pharmacy) 1 each PRN DAILY PRN MC SEE COMMENTS; Start 05/20/17 at 18:15 Sodium Chloride 1,000 ml @ 75 mls/hr 1X ONCE IV Last administered on 18:30; Start 05/20/17 at 18:30; Stop 05/21/17 at 07:49; Status DC Piperacillin Sod/ Tazobactam Sod (Zosyn) 3.375 gm 1X ONCE IVP Last administered on 05/20/17 18:29; Start 05/20/17 at 18:30; Stop 05/20/17 at 18 :31; Status DC Piperacillin Sod/ Tazobactam Sod (Zosyn) 3.375 gm Q6HRS IVP Last administered on 05/21/17 05:40; Start 05/21/17 at 00:00 Morphine Sulfate 2 mg PRN Q2HR PRN IV PAIN Last administered on 05/21/17 05: 39; Start 05/20/17 at 21:30 Ondansetron HCl (Zofran) 4 mg PRN Q6HRS PRN IV NAUSEA/VOMITING Last administered on 05/21/17 05:40; Start 05/20/17 at 21:30 Active Scripts Active Reported Etodolac 400 Mg Tablet 1 Tab PO HS Trazodone Hcl 150 Mg Tablet 150 Mg PO HS Atorvastatin Calcium 40 Mg Tablet 40 Mg PO HS Mirtazapine 15 Mg Tablet 1 Tab PO QHS Donepezil Hcl 5 Mg Tablet 5 Mg PO HS Zetia (Ezetimibe) 10 Mg Tablet 10 Mg PO HS Losartan Potassium 50 Mg Tablet 50 Mg PO HS Allergies Allergies: Coded Allergies: bupivacaine (Verified Allergy, Intermediate, Rash, 01/08/17) lidocaine (Verified Allergy, Intermediate, Rash, 01/08/17) nickel (Verified Allergy, Intermediate, Rash, 01/08/17) ROS General: No: Chills, Other (fevers) PSYCHOLOGICAL ROS: No: Anxiety, Depression Eyes: No Blurry vision HEENT: No: Heacaches, Sore Throat Hematological and Lymphatic: No: Bleeding Problems, Blood Clots Respiratory: No: Cough, Shortness of breath Cardiovascular: yes Chest Pain, No Palpitations Gastrointestinal: Yes Other (see hpi) Musculoskeletal: Yes Joint Stiffness, Yes Muscular Weakness Neurological: No Bowel/Bladder ControlChng, No Memory Loss Skin: No Pruritus, No Rash Physical Exam General: Alert, Oriented X3, Cooperative, No acute distress HEENT: PERRLA, Mucous membr. moist/pink Lungs: Clear to auscultation, Normal air movement Heart: Regular rate, Normal S1, Normal S2, No murmurs Abdomen: Soft, Other (ND, moderate to severe lower abdominal tenderness, greatest to LLQ, some guarding on exam, large midline scar present ) Extremities: No clubbing, No cyanosis Skin: No rashes, No breakdown Neuro: Normal gait, Normal speech Psych/Mental Status: Mental status NL, Mood NL MUSCULOSKELETAL: No deformity, No swelling Vitals VITALS Vital Signs Date Time Temp Pulse Resp B/P (MAP) Pulse Ox O2 Delivery O2 Flow Rate FiO2 05/21/17 07:35 100.0 80 17 116/64 (81) 95 Room Air 100.0 Labs Labs Laboratory Tests Test 05/20/17 15:35 05/20/17 16:05 05/20/17 16:10 05/20/17 16:58 Urine Color Yellow Urine Clarity Clear Urine pH 6.0 Urine Specific [place] 1.010 Urine Protein Negative mg/dL (NEG-TRACE) Urine Glucose (UA) Negative mg/dL (NEG) Urine Ketones (Stick) Negative mg/dL (NEG) Urine Blood Negative (NEG) Urine Nitrite Negative (NEG) Urine Bilirubin Small (NEG) Urine Urobilinogen Dipstick 0.2 mg/dL (0.2 mg/dL) Urine Leukocyte Esterase Negative (NEG) Urine RBC 0 /HPF (0-2) Urine WBC 0 /HPF (0-4) Urine Squamous Epithelial Cells Occ /LPF Urine Bacteria 0 /HPF (0-FEW) White Blood Count 12.7 x10^3/uL (4.0-11.0) Red Blood Count 5.36 x10^6/uL (3.50-5.40) Hemoglobin 14.6 g/dL (12.0-15.5) Hematocrit 44.3 % (36.0-47.0) Mean Corpuscular Volume 83 fL (79-100) Mean Corpuscular Hemoglobin 27 pg (25-35) Mean Corpuscular Hemoglobin Concent 33 g/dL (31-37) Red Cell Distribution Width 15.1 % (11.5-14.5) Platelet Count 212 x10^3/uL (140-400) Neutrophils (%) (Auto) 83 % (31-73) Lymphocytes (%) (Auto) 10 % (24-48) Monocytes (%) (Auto) 6 % (0-9) Eosinophils (%) (Auto) 1 % (0-3) Basophils (%) (Auto) 1 % (0-3) Neutrophils # (Auto) 10.6 x10^3uL (1.8-7.7) Lymphocytes # (Auto) 1.3 x10^3/uL (1.0-4.8) Monocytes # (Auto) 0.7 x10^3/uL (0.0-1.1) Eosinophils # (Auto) 0.1 x10^3/uL (0.0-0.7) Basophils # (Auto) 0.1 x10^3/uL (0.0-0.2) Lactic Acid Level 1.4 mmol/L (0.4-2.0) Troponin I Quantitative < 0.017 ng/mL (0.000-0.055) Lipase 157 U/L (73-393) Total Bilirubin 0.4 mg/dL (0.2-1.0) Direct Bilirubin 0.1 mg/dL (0.0-0.2) Aspartate Amino Transf (AST/SGOT) 21 U/L (15-37) Alanine Aminotransferase (ALT/SGPT) 22 U/L (14-59) Alkaline Phosphatase 78 U/L (46-116) Total Protein 7.4 g/dL (6.4-8.2) Albumin 3.9 g/dL (3.4-5.0) Bedside Hemoglobin 13.6 g/dL (12-15) Bedside Hematocrit 40 % (36-40) Bedside Sodium 142 mmol/L (135-145) Bedside Potassium 3.6 mmol/L (3.5-5.0) Bedside Chloride 105 mmol/L (98-110) Bedside Total CO2 28 mmol/L (23-32) Anion Gap 13 mmol/L (6-14) Bedside Blood Urea Nitrogen 16 mg/dL (8-26) Bedside Creatinine 1.2 mg/dL (0.5-1.4) Glucose Level 86 mg/dL (70-99) Bedside Ionized Calcium (Rica) 1.15 mmol/L (1.13-1.32) Laboratory Tests Test 05/20/17 15:35 05/20/17 16:05 05/20/17 16:10 05/20/17 16:58 Urine Color Yellow Urine Clarity Clear Urine pH 6.0 Urine Specific [place] 1.010 Urine Protein Negative mg/dL (NEG-TRACE) Urine Glucose (UA) Negative mg/dL (NEG) Urine Ketones (Stick) Negative mg/dL (NEG) Urine Blood Negative (NEG) Urine Nitrite Negative (NEG) Urine Bilirubin Small (NEG) Urine Urobilinogen Dipstick 0.2 mg/dL (0.2 mg/dL) Urine Leukocyte Esterase Negative (NEG) Urine RBC 0 /HPF (0-2) Urine WBC 0 /HPF (0-4) Urine Squamous Epithelial Cells Occ /LPF Urine Bacteria 0 /HPF (0-FEW) White Blood Count 12.7 x10^3/uL (4.0-11.0) Red Blood Count 5.36 x10^6/uL (3.50-5.40) Hemoglobin 14.6 g/dL (12.0-15.5) Hematocrit 44.3 % (36.0-47.0) Mean Corpuscular Volume 83 fL (79-100) Mean Corpuscular Hemoglobin 27 pg (25-35) Mean Corpuscular Hemoglobin Concent 33 g/dL (31-37) Red Cell Distribution Width 15.1 % (11.5-14.5) Platelet Count 212 x10^3/uL (140-400) Neutrophils (%) (Auto) 83 % (31-73) Lymphocytes (%) (Auto) 10 % (24-48) Monocytes (%) (Auto) 6 % (0-9) Eosinophils (%) (Auto) 1 % (0-3) Basophils (%) (Auto) 1 % (0-3) Neutrophils # (Auto) 10.6 x10^3uL (1.8-7.7) Lymphocytes # (Auto) 1.3 x10^3/uL (1.0-4.8) Monocytes # (Auto) 0.7 x10^3/uL (0.0-1.1) Eosinophils # (Auto) 0.1 x10^3/uL (0.0-0.7) Basophils # (Auto) 0.1 x10^3/uL (0.0-0.2) Lactic Acid Level 1.4 mmol/L (0.4-2.0) Troponin I Quantitative < 0.017 ng/mL (0.000-0.055) Lipase 157 U/L (73-393) Total Bilirubin 0.4 mg/dL (0.2-1.0) Direct Bilirubin 0.1 mg/dL (0.0-0.2) Aspartate Amino Transf (AST/SGOT) 21 U/L (15-37) Alanine Aminotransferase (ALT/SGPT) 22 U/L (14-59) Alkaline Phosphatase 78 U/L (46-116) Total Protein 7.4 g/dL (6.4-8.2) Albumin 3.9 g/dL (3.4-5.0) Bedside Hemoglobin 13.6 g/dL (12-15) Bedside Hematocrit 40 % (36-40) Bedside Sodium 142 mmol/L (135-145) Bedside Potassium 3.6 mmol/L (3.5-5.0) Bedside Chloride 105 mmol/L (98-110) Bedside Total CO2 28 mmol/L (23-32) Anion Gap 13 mmol/L (6-14) Bedside Blood Urea Nitrogen 16 mg/dL (8-26) Bedside Creatinine 1.2 mg/dL (0.5-1.4) Glucose Level 86 mg/dL (70-99) Bedside Ionized Calcium (Rica) 1.15 mmol/L (1.13-1.32) Images Images CT reviewed Assessment/Plan Assessment/Plan perforated diverticulitis, small abscess comorbidities including HTN, HLD, obesity BMI 35.9, hx of gastric bypass NPO, bowel rest, hydration, electrolyte management, IV abx Serial exams and labs KENN BRO MD 05/21/17 7808: CONSULT Allergies Allergies: Coded Allergies: bupivacaine (Verified Allergy, Intermediate, Rash, 01/08/17) lidocaine (Verified Allergy, Intermediate, Rash, 01/08/17) nickel (Verified Allergy, Intermediate, Rash, 01/08/17) Assessment/Plan Assessment/Plan Pt seen and examined independently by myself; 71 year old female reported to the ER with abdominal pain, the pain was primarily in the LLQ; she seems to have some confusion and states she has been here several days; she states the pain is persistent. PMH/PSH/SH/ROS as above, note prior open gastric bypass; exam: alert, some possible confusion, no neck masses, no scleral icterus, lungs clear, heart RR and R, abdomen soft, tender low abdomen and LLQ with guarding, healed vert midline scar, ext without edema or deformity; CT reviewed. suspect diverticulitis with focal perforation; agree with plan, bowel rest, IV abx, serial exam/labs, possible drainage if abscess develops; surgery would become indicated if medical tx not successful. Pt seems to understand. ADÁN SANDOVAL APRN May 21, 2017 08:33 KENN BRO MD May 21, 2017 16:57
[2017-05-21 08:48] LABS: BASO # 0.1 x10^3/uL (0.0-0.2); BASO % 1 % (0-3); EOS % 1 % (0-3); HEMOGLOBIN 13.2 g/dL (12.0-15.5); LYMPH # 1.6 x10^3/uL (1.0-4.8); LYMPH % 17 % (24-48); MEAN CORPUSCULAR HEMOGLOBIN 27 pg (25-35); MEAN CORPUSCULAR HGB CONC 33 g/dL (31-37); MEAN CORPUSCULAR VOLUME 82 fL (79-100); MONO % 9 % (0-9); NEUT % 72 % (31-73); PLATELET COUNT 182 x10^3/uL (140-400); RED BLOOD COUNT 4.85 x10^6/uL (3.50-5.40); RED CELL DISTRIBUTION WIDTH 15.6 % (11.5-14.5); WHITE BLOOD COUNT 9.4 x10^3/uL (4.0-11.0)
[2017-05-21 09:02] LABS: CALCIUM 8.9 mg/dL (8.5-10.1); CREATININE 1.2 mg/dL (0.6-1.0); GFR 44.5; POTASSIUM 3.8 mmol/L (3.5-5.1)
[2017-05-21 09:06] LABS: ALBUMIN 3.4 g/dL (3.4-5.0); ALBUMIN/GLOBULIN RATIO 1.1 (1.0-1.7); TOTAL BILIRUBIN 0.8 mg/dL (0.2-1.0); TOTAL PROTEIN 6.6 g/dL (6.4-8.2)
--- NOTE | 2017-05-21 09:24 | PDOC2 ---
GI CONSULT Reason For Consult: Perforated diverticula HPI: HPI: 71 y/o female, poor historian, admitted through ER. Reports acute onset LLQ and suprapubic pain yesterday. CT c/w sigmoid diverticulitis w/ perforation, possible abscess. NPO on Zosyn. Previous EGD and colonoscopy >15 years ago in [place]. Additional h/o gastric bypass ("stapling") about 20 years ago, lost 150 pounds, has gained some back. Had GERD years ago, used to treat, now "ignores it." Denies daily GERD symptoms. No F/C/S, dysphagia, n/v, diarrhea, constipation, hematochezia, melena. Ibuprofen daily for general pain. No liver, gallbladder, or pancreas history. PMH: PMH: HTN, asthma, HLD, memory loss, depression/anxiety, gastric bypass ("stapling"), partial hysterectomy, left knee replacement, bilateral rotator cuff repair FH: Family History: Cancer (sister - unknown kind) Social History: Smoke: No ALCOHOL: none Drugs: None ROS: GEN: Denies fevers, chills, sweats HEENT: Denies blurred vision, sore throat CV: Denies chest pain RESP: Denies shortness of air, cough GI: Per HPI : Denies hematuria, dysuria ENDO: Denies weight changes NEURO: +memory loss MSK: +bodyaches SKIN: Denies jaundice, pruritus Vitals: Vitals: Vital Signs Date Time Temp Pulse Resp B/P (MAP) Pulse Ox O2 Delivery O2 Flow Rate FiO2 05/21/17 07:35 100.0 80 17 116/64 (81) 95 Room Air 100.0 Labs: Labs: Laboratory Tests Test 05/20/17 15:35 05/20/17 16:05 05/20/17 16:10 05/20/17 16:58 Urine Color Yellow Urine Clarity Clear Urine pH 6.0 Urine Specific Labelle 1.010 Urine Protein Negative mg/dL (NEG-TRACE) Urine Glucose (UA) Negative mg/dL (NEG) Urine Ketones (Stick) Negative mg/dL (NEG) Urine Blood Negative (NEG) Urine Nitrite Negative (NEG) Urine Bilirubin Small (NEG) Urine Urobilinogen Dipstick 0.2 mg/dL (0.2 mg/dL) Urine Leukocyte Esterase Negative (NEG) Urine RBC 0 /HPF (0-2) Urine WBC 0 /HPF (0-4) Urine Squamous Epithelial Cells Occ /LPF Urine Bacteria 0 /HPF (0-FEW) White Blood Count 12.7 x10^3/uL (4.0-11.0) Red Blood Count 5.36 x10^6/uL (3.50-5.40) Hemoglobin 14.6 g/dL (12.0-15.5) Hematocrit 44.3 % (36.0-47.0) Mean Corpuscular Volume 83 fL (79-100) Mean Corpuscular Hemoglobin 27 pg (25-35) Mean Corpuscular Hemoglobin Concent 33 g/dL (31-37) Red Cell Distribution Width 15.1 % (11.5-14.5) Platelet Count 212 x10^3/uL (140-400) Neutrophils (%) (Auto) 83 % (31-73) Lymphocytes (%) (Auto) 10 % (24-48) Monocytes (%) (Auto) 6 % (0-9) Eosinophils (%) (Auto) 1 % (0-3) Basophils (%) (Auto) 1 % (0-3) Neutrophils # (Auto) 10.6 x10^3uL (1.8-7.7) Lymphocytes # (Auto) 1.3 x10^3/uL (1.0-4.8) Monocytes # (Auto) 0.7 x10^3/uL (0.0-1.1) Eosinophils # (Auto) 0.1 x10^3/uL (0.0-0.7) Basophils # (Auto) 0.1 x10^3/uL (0.0-0.2) Lactic Acid Level 1.4 mmol/L (0.4-2.0) Troponin I Quantitative < 0.017 ng/mL (0.000-0.055) Lipase 157 U/L (73-393) Total Bilirubin 0.4 mg/dL (0.2-1.0) Direct Bilirubin 0.1 mg/dL (0.0-0.2) Aspartate Amino Transf (AST/SGOT) 21 U/L (15-37) Alanine Aminotransferase (ALT/SGPT) 22 U/L (14-59) Alkaline Phosphatase 78 U/L (46-116) Total Protein 7.4 g/dL (6.4-8.2) Albumin 3.9 g/dL (3.4-5.0) Bedside Hemoglobin 13.6 g/dL (12-15) Bedside Hematocrit 40 % (36-40) Bedside Sodium 142 mmol/L (135-145) Bedside Potassium 3.6 mmol/L (3.5-5.0) Bedside Chloride 105 mmol/L (98-110) Bedside Total CO2 28 mmol/L (23-32) Anion Gap 13 mmol/L (6-14) Bedside Blood Urea Nitrogen 16 mg/dL (8-26) Bedside Creatinine 1.2 mg/dL (0.5-1.4) Glucose Level 86 mg/dL (70-99) Bedside Ionized Calcium (Rica) 1.15 mmol/L (1.13-1.32) Test 05/21/17 08:30 White Blood Count 9.4 x10^3/uL (4.0-11.0) Red Blood Count 4.85 x10^6/uL (3.50-5.40) Hemoglobin 13.2 g/dL (12.0-15.5) Hematocrit 40.0 % (36.0-47.0) Mean Corpuscular Volume 82 fL (79-100) Mean Corpuscular Hemoglobin 27 pg (25-35) Mean Corpuscular Hemoglobin Concent 33 g/dL (31-37) Red Cell Distribution Width 15.6 % (11.5-14.5) Platelet Count 182 x10^3/uL (140-400) Neutrophils (%) (Auto) 72 % (31-73) Lymphocytes (%) (Auto) 17 % (24-48) Monocytes (%) (Auto) 9 % (0-9) Eosinophils (%) (Auto) 1 % (0-3) Basophils (%) (Auto) 1 % (0-3) Neutrophils # (Auto) 6.8 x10^3uL (1.8-7.7) Lymphocytes # (Auto) 1.6 x10^3/uL (1.0-4.8) Monocytes # (Auto) 0.9 x10^3/uL (0.0-1.1) Eosinophils # (Auto) 0.0 x10^3/uL (0.0-0.7) Basophils # (Auto) 0.1 x10^3/uL (0.0-0.2) Sodium Level 140 mmol/L (136-145) Potassium Level 3.8 mmol/L (3.5-5.1) Chloride Level 104 mmol/L (98-107) Carbon Dioxide Level 26 mmol/L (21-32) Anion Gap 10 (6-14) Blood Urea Nitrogen 13 mg/dL (7-20) Creatinine 1.2 mg/dL (0.6-1.0) Estimated GFR (Cockcroft-Gault) 44.5 BUN/Creatinine Ratio 11 (6-20) Glucose Level 101 mg/dL (70-99) Calcium Level 8.9 mg/dL (8.5-10.1) Total Bilirubin 0.8 mg/dL (0.2-1.0) Aspartate Amino Transf (AST/SGOT) 15 U/L (15-37) Alanine Aminotransferase (ALT/SGPT) 18 U/L (14-59) Alkaline Phosphatase 62 U/L (46-116) Total Protein 6.6 g/dL (6.4-8.2) Albumin 3.4 g/dL (3.4-5.0) Albumin/Globulin Ratio 1.1 (1.0-1.7) Allergies: Coded Allergies: bupivacaine (Verified Allergy, Intermediate, Rash, 01/08/17) lidocaine (Verified Allergy, Intermediate, Rash, 01/08/17) nickel (Verified Allergy, Intermediate, Rash, 01/08/17) Medications: Current Medications Medications (Trade) Dose Ordered Sig/Ginger Route PRN Reason Start Time Stop Time Status Last Admin Dose Admin Fentanyl Citrate (Fentanyl 2ml Vial) 50 mcg 1X ONCE IV 05/20/17 16:15 05/20/17 16:16 DC 05/20/17 16:24 Sodium Chloride 500 ml @ 500 mls/hr 1X ONCE IV 05/20/17 16:15 05/20/17 17:14 DC 05/20/17 16:15 Iohexol (Omnipaque 300 Mg/ml) 75 ml 1X ONCE IV 05/20/17 17:15 05/20/17 17:16 DC 05/20/17 17:32 Morphine Sulfate 4 mg 1X ONCE IV 05/20/17 18:00 05/20/17 18:01 DC 05/20/17 18:01 Sodium Chloride 1,000 ml @ 75 mls/hr 1X ONCE IV 05/20/17 18:30 05/21/17 07:49 DC 05/20/17 18:30 Piperacillin Sod/ Tazobactam Sod (Zosyn) 3.375 gm 1X ONCE IVP 05/20/17 18:30 05/20/17 18:31 DC 05/20/17 18:29 Piperacillin Sod/ Tazobactam Sod (Zosyn) 3.375 gm Q6HRS IVP 05/21/17 00:00 05/21/17 05:40 Morphine Sulfate 2 mg PRN Q2HR PRN IV PAIN 05/20/17 21:30 05/21/17 05:39 Ondansetron HCl (Zofran) 4 mg PRN Q6HRS PRN IV NAUSEA/VOMITING 05/20/17 21:30 05/21/17 05:40 Imaging: Imaging: CXR Impression: No acute cardiopulmonary process is detected. CT A/P IMPRESSION: Findings consistent with sigmoid diverticulitis. Extraluminal collections of air are seen adjacent to the sigmoid colon consistent with a perforation. Small amount of free air is seen within the anterior superior abdomen. A 1.2 cm low-attenuation area is seen adjacent to the proximal sigmoid colon which may represent a small abscess. PE: GEN: uncomfortable HEENT: Atraumatic, PERRL LUNGS: CTAB HEART: RRR ABD: NABS, S/ND, LLQ tenderness to suprapubic region, some RLQ EXTREMITY: No edema SKIN: No rashes, no jaundice NEURO/PSYCH: A & O 3, tearful A/P: A/P: Sigmoid diverticulitis w/ perforation, possible abscess -acute onset lower abd pain 05/20 -last colonoscopy >15 years ago Fever H/o GERD, daily NSAID use H/o gastric bypass -- D/w Dr. Godinez - continue atbx, add Flagyl. NPO, supportive care. 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 Outpt colonoscopy +/- EGD. VINEET DAY May 21, 2017 09:24
[2017-05-21] MEDS: FAMOTIDINE 20 MG/2 ML VIAL IVP SCH ×2 (09:57→21:56)
[2017-05-21] MEDS ORDERED: OXYC-323 PO (10:04)
--- NOTE | 2017-05-21 10:23 | CONS ---
DATE OF CONSULTATION: 05/21/2017 REQUESTING PHYSICIAN: Dr. Finley. REASON FOR CONSULTATION: Diverticulitis with perforation. HISTORY OF PRESENT ILLNESS: This is a 71-year-old female who yesterday at 2:00 started having severe abdominal pain. The patient had vomited 3 times. The patient also noted to have fever here, leukocytosis and started on Zosyn after having a CAT scan showing diverticulitis with perforation and abscess. The patient is not happy with n.p.o. status, but other than that, she is feeling fine. Denies any vomiting today. Denies any chest pain. Continues to have significant abdominal pain. The patient's normal bowel habits are on the constipation side, she says. PAST MEDICAL HISTORY: Positive for a total knee replacement this summer on the left side. PAST SURGICAL HISTORY: Has had hysterectomy, has had rotator cuff surgery. She has had gastric bypass surgery, asthma, hyperlipidemia, hypertension and maybe mild dementia. SOCIAL HISTORY: Negative for smoking, alcohol or drug use. ALLERGIES: LISTED ALLERGIC TO LIDOCAINE AND BUPIVACAINE. CURRENT MEDICATIONS: Reviewed. REVIEW OF SYSTEMS: As per HPI. All other systems review are negative. PHYSICAL EXAMINATION: GENERAL: Alert, oriented female, not in any distress. VITAL SIGNS: Stable with a T-max 100.0. HEENT: NAD. NECK: Supple, no JVD, no lymphadenopathy. LUNGS: Clear. CARDIOVASCULAR: S1, S2 regular. ABDOMEN: Diffusely tender. She is very sensitive and jumpy, does not allow deep palpation. No apparent organomegaly or distention noted. EXTREMITIES: No edema or cyanosis. SKIN: Unremarkable. NEUROLOGIC: The patient is neurologically intact. LABORATORY DATA: White count is 12.7 on admission, now down to 9.4. BUN and creatinine 13 and 1.2, lactic acid was 1.4. Urinalysis unremarkable. CT scan of abdomen and pelvis is showing sigmoid diverticulitis with diverticular perforation and a small abscess. IMPRESSION: 1. Diverticulitis with diverticular perforation and small abscess. 2. Fever. 3. Leukocytosis. 4. Severe abdominal pain. 5. Hypertension. 6. Hyperlipidemia. 7. Mild dementia. RECOMMENDATIONS: Would continue Zosyn, supportive care. I did discuss with the patient and the patient's daughter in detail about n.p.o. and then, the trial of liquid. Once this improves, may need repeat CT. Also if it does not get better, then may need surgery and an ostomy. Thank you very much, Dr. Finley for giving me opportunity to participate in this patient's care. BOB HINES MD DR: SHERYL/ezequiel JOB#: [id number] / [id number]
[2017-05-21 10:58] VITALS: BP 131/86
--- NOTE | 2017-05-21 13:30 | PDOC ---
PROGRESS NOTES Chief Complaint Chief Complaint 1. Perforated diverticulitis, small ? abscess 2. HTN, asthma, HLD, memory loss, depression/anxiety, gastric bypass ("stapling "), partial hysterectomy, left knee replacement, bilateral rotator cuff repair History of Present Illness History of Present Illness still abd pain claims left leg/knee sore - had knee sx few mos ago, cant remember if here I educated her everyday 3 diff mDs will do serial abd exams - she seemed to did not like it when i examined her belly I educated her on conservative mx for now of this small perf PLAN: NPO, STart K containing iVF at 75cc hr (K low side) OK to ambulate, pT,OT COnt IV abx Vitals Vitals Vital Signs Date Time Temp Pulse Resp B/P (MAP) Pulse Ox O2 Delivery O2 Flow Rate FiO2 05/21/17 10:58 97.7 88 17 131/86 (101) 92 Room Air 97.7 Physical Exam General: Alert, Oriented X3, Cooperative, No acute distress Heart: Regular rate, Normal S1, Normal S2, No murmurs Abdomen: Soft, Other (ND, moderate to severe lower abdominal tenderness, greatest to LLQ, some guarding on exam, large midline scar present ) Extremities: No clubbing, No cyanosis Skin: No rashes, No breakdown Labs LABS Laboratory Tests Test 05/20/17 15:35 05/20/17 16:05 05/20/17 16:10 05/20/17 16:58 Urine Color Yellow Urine Clarity Clear Urine pH 6.0 Urine Specific [place] 1.010 Urine Protein Negative mg/dL (NEG-TRACE) Urine Glucose (UA) Negative mg/dL (NEG) Urine Ketones (Stick) Negative mg/dL (NEG) Urine Blood Negative (NEG) Urine Nitrite Negative (NEG) Urine Bilirubin Small (NEG) Urine Urobilinogen Dipstick 0.2 mg/dL (0.2 mg/dL) Urine Leukocyte Esterase Negative (NEG) Urine RBC 0 /HPF (0-2) Urine WBC 0 /HPF (0-4) Urine Squamous Epithelial Cells Occ /LPF Urine Bacteria 0 /HPF (0-FEW) White Blood Count 12.7 x10^3/uL (4.0-11.0) Red Blood Count 5.36 x10^6/uL (3.50-5.40) Hemoglobin 14.6 g/dL (12.0-15.5) Hematocrit 44.3 % (36.0-47.0) Mean Corpuscular Volume 83 fL (79-100) Mean Corpuscular Hemoglobin 27 pg (25-35) Mean Corpuscular Hemoglobin Concent 33 g/dL (31-37) Red Cell Distribution Width 15.1 % (11.5-14.5) Platelet Count 212 x10^3/uL (140-400) Neutrophils (%) (Auto) 83 % (31-73) Lymphocytes (%) (Auto) 10 % (24-48) Monocytes (%) (Auto) 6 % (0-9) Eosinophils (%) (Auto) 1 % (0-3) Basophils (%) (Auto) 1 % (0-3) Neutrophils # (Auto) 10.6 x10^3uL (1.8-7.7) Lymphocytes # (Auto) 1.3 x10^3/uL (1.0-4.8) Monocytes # (Auto) 0.7 x10^3/uL (0.0-1.1) Eosinophils # (Auto) 0.1 x10^3/uL (0.0-0.7) Basophils # (Auto) 0.1 x10^3/uL (0.0-0.2) Lactic Acid Level 1.4 mmol/L (0.4-2.0) Troponin I Quantitative < 0.017 ng/mL (0.000-0.055) Lipase 157 U/L (73-393) Total Bilirubin 0.4 mg/dL (0.2-1.0) Direct Bilirubin 0.1 mg/dL (0.0-0.2) Aspartate Amino Transf (AST/SGOT) 21 U/L (15-37) Alanine Aminotransferase (ALT/SGPT) 22 U/L (14-59) Alkaline Phosphatase 78 U/L (46-116) Total Protein 7.4 g/dL (6.4-8.2) Albumin 3.9 g/dL (3.4-5.0) Bedside Hemoglobin 13.6 g/dL (12-15) Bedside Hematocrit 40 % (36-40) Bedside Sodium 142 mmol/L (135-145) Bedside Potassium 3.6 mmol/L (3.5-5.0) Bedside Chloride 105 mmol/L (98-110) Bedside Total CO2 28 mmol/L (23-32) Anion Gap 13 mmol/L (6-14) Bedside Blood Urea Nitrogen 16 mg/dL (8-26) Bedside Creatinine 1.2 mg/dL (0.5-1.4) Glucose Level 86 mg/dL (70-99) Bedside Ionized Calcium (Rica) 1.15 mmol/L (1.13-1.32) Test 05/21/17 08:30 White Blood Count 9.4 x10^3/uL (4.0-11.0) Red Blood Count 4.85 x10^6/uL (3.50-5.40) Hemoglobin 13.2 g/dL (12.0-15.5) Hematocrit 40.0 % (36.0-47.0) Mean Corpuscular Volume 82 fL (79-100) Mean Corpuscular Hemoglobin 27 pg (25-35) Mean Corpuscular Hemoglobin Concent 33 g/dL (31-37) Red Cell Distribution Width 15.6 % (11.5-14.5) Platelet Count 182 x10^3/uL (140-400) Neutrophils (%) (Auto) 72 % (31-73) Lymphocytes (%) (Auto) 17 % (24-48) Monocytes (%) (Auto) 9 % (0-9) Eosinophils (%) (Auto) 1 % (0-3) Basophils (%) (Auto) 1 % (0-3) Neutrophils # (Auto) 6.8 x10^3uL (1.8-7.7) Lymphocytes # (Auto) 1.6 x10^3/uL (1.0-4.8) Monocytes # (Auto) 0.9 x10^3/uL (0.0-1.1) Eosinophils # (Auto) 0.0 x10^3/uL (0.0-0.7) Basophils # (Auto) 0.1 x10^3/uL (0.0-0.2) Sodium Level 140 mmol/L (136-145) Potassium Level 3.8 mmol/L (3.5-5.1) Chloride Level 104 mmol/L (98-107) Carbon Dioxide Level 26 mmol/L (21-32) Anion Gap 10 (6-14) Blood Urea Nitrogen 13 mg/dL (7-20) Creatinine 1.2 mg/dL (0.6-1.0) Estimated GFR (Cockcroft-Gault) 44.5 BUN/Creatinine Ratio 11 (6-20) Glucose Level 101 mg/dL (70-99) Calcium Level 8.9 mg/dL (8.5-10.1) Total Bilirubin 0.8 mg/dL (0.2-1.0) Aspartate Amino Transf (AST/SGOT) 15 U/L (15-37) Alanine Aminotransferase (ALT/SGPT) 18 U/L (14-59) Alkaline Phosphatase 62 U/L (46-116) Total Protein 6.6 g/dL (6.4-8.2) Albumin 3.4 g/dL (3.4-5.0) Albumin/Globulin Ratio 1.1 (1.0-1.7) Review of Systems Review of Systems abd pain, no emsis, left knee pain, no fevers, no cp no soa Assessment and Plan Assessmemt and Plan Problems Medical Problems: (1) Abdominal abscess Status: Acute (2) Perforation of sigmoid colon due to diverticulitis Status: Acute Problems: Comment Review of Relevant I have reviewed the following items jocelyn (where applicable) has been applied. Labs Laboratory Tests Test 05/20/17 15:35 05/20/17 16:05 05/20/17 16:10 05/20/17 16:58 Urine Color Yellow Urine Clarity Clear Urine pH 6.0 Urine Specific [place] 1.010 Urine Protein Negative mg/dL (NEG-TRACE) Urine Glucose (UA) Negative mg/dL (NEG) Urine Ketones (Stick) Negative mg/dL (NEG) Urine Blood Negative (NEG) Urine Nitrite Negative (NEG) Urine Bilirubin Small (NEG) Urine Urobilinogen Dipstick 0.2 mg/dL (0.2 mg/dL) Urine Leukocyte Esterase Negative (NEG) Urine RBC 0 /HPF (0-2) Urine WBC 0 /HPF (0-4) Urine Squamous Epithelial Cells Occ /LPF Urine Bacteria 0 /HPF (0-FEW) White Blood Count 12.7 x10^3/uL (4.0-11.0) Red Blood Count 5.36 x10^6/uL (3.50-5.40) Hemoglobin 14.6 g/dL (12.0-15.5) Hematocrit 44.3 % (36.0-47.0) Mean Corpuscular Volume 83 fL (79-100) Mean Corpuscular Hemoglobin 27 pg (25-35) Mean Corpuscular Hemoglobin Concent 33 g/dL (31-37) Red Cell Distribution Width 15.1 % (11.5-14.5) Platelet Count 212 x10^3/uL (140-400) Neutrophils (%) (Auto) 83 % (31-73) Lymphocytes (%) (Auto) 10 % (24-48) Monocytes (%) (Auto) 6 % (0-9) Eosinophils (%) (Auto) 1 % (0-3) Basophils (%) (Auto) 1 % (0-3) Neutrophils # (Auto) 10.6 x10^3uL (1.8-7.7) Lymphocytes # (Auto) 1.3 x10^3/uL (1.0-4.8) Monocytes # (Auto) 0.7 x10^3/uL (0.0-1.1) Eosinophils # (Auto) 0.1 x10^3/uL (0.0-0.7) Basophils # (Auto) 0.1 x10^3/uL (0.0-0.2) Lactic Acid Level 1.4 mmol/L (0.4-2.0) Troponin I Quantitative < 0.017 ng/mL (0.000-0.055) Lipase 157 U/L (73-393) Total Bilirubin 0.4 mg/dL (0.2-1.0) Direct Bilirubin 0.1 mg/dL (0.0-0.2) Aspartate Amino Transf (AST/SGOT) 21 U/L (15-37) Alanine Aminotransferase (ALT/SGPT) 22 U/L (14-59) Alkaline Phosphatase 78 U/L (46-116) Total Protein 7.4 g/dL (6.4-8.2) Albumin 3.9 g/dL (3.4-5.0) Bedside Hemoglobin 13.6 g/dL (12-15) Bedside Hematocrit 40 % (36-40) Bedside Sodium 142 mmol/L (135-145) Bedside Potassium 3.6 mmol/L (3.5-5.0) Bedside Chloride 105 mmol/L (98-110) Bedside Total CO2 28 mmol/L (23-32) Anion Gap 13 mmol/L (6-14) Bedside Blood Urea Nitrogen 16 mg/dL (8-26) Bedside Creatinine 1.2 mg/dL (0.5-1.4) Glucose Level 86 mg/dL (70-99) Bedside Ionized Calcium (Rica) 1.15 mmol/L (1.13-1.32) Test 05/21/17 08:30 White Blood Count 9.4 x10^3/uL (4.0-11.0) Red Blood Count 4.85 x10^6/uL (3.50-5.40) Hemoglobin 13.2 g/dL (12.0-15.5) Hematocrit 40.0 % (36.0-47.0) Mean Corpuscular Volume 82 fL (79-100) Mean Corpuscular Hemoglobin 27 pg (25-35) Mean Corpuscular Hemoglobin Concent 33 g/dL (31-37) Red Cell Distribution Width 15.6 % (11.5-14.5) Platelet Count 182 x10^3/uL (140-400) Neutrophils (%) (Auto) 72 % (31-73) Lymphocytes (%) (Auto) 17 % (24-48) Monocytes (%) (Auto) 9 % (0-9) Eosinophils (%) (Auto) 1 % (0-3) Basophils (%) (Auto) 1 % (0-3) Neutrophils # (Auto) 6.8 x10^3uL (1.8-7.7) Lymphocytes # (Auto) 1.6 x10^3/uL (1.0-4.8) Monocytes # (Auto) 0.9 x10^3/uL (0.0-1.1) Eosinophils # (Auto) 0.0 x10^3/uL (0.0-0.7) Basophils # (Auto) 0.1 x10^3/uL (0.0-0.2) Sodium Level 140 mmol/L (136-145) Potassium Level 3.8 mmol/L (3.5-5.1) Chloride Level 104 mmol/L (98-107) Carbon Dioxide Level 26 mmol/L (21-32) Anion Gap 10 (6-14) Blood Urea Nitrogen 13 mg/dL (7-20) Creatinine 1.2 mg/dL (0.6-1.0) Estimated GFR (Cockcroft-Gault) 44.5 BUN/Creatinine Ratio 11 (6-20) Glucose Level 101 mg/dL (70-99) Calcium Level 8.9 mg/dL (8.5-10.1) Total Bilirubin 0.8 mg/dL (0.2-1.0) Aspartate Amino Transf (AST/SGOT) 15 U/L (15-37) Alanine Aminotransferase (ALT/SGPT) 18 U/L (14-59) Alkaline Phosphatase 62 U/L (46-116) Total Protein 6.6 g/dL (6.4-8.2) Albumin 3.4 g/dL (3.4-5.0) Albumin/Globulin Ratio 1.1 (1.0-1.7) Laboratory Tests Test 05/20/17 15:35 05/20/17 16:05 05/20/17 16:10 05/20/17 16:58 Urine Color Yellow Urine Clarity Clear Urine pH 6.0 Urine Specific [place]ramer 1.010 Urine Protein Negative mg/dL (NEG-TRACE) Urine Glucose (UA) Negative mg/dL (NEG) Urine Ketones (Stick) Negative mg/dL (NEG) Urine Blood Negative (NEG) Urine Nitrite Negative (NEG) Urine Bilirubin Small (NEG) Urine Urobilinogen Dipstick 0.2 mg/dL (0.2 mg/dL) Urine Leukocyte Esterase Negative (NEG) Urine RBC 0 /HPF (0-2) Urine WBC 0 /HPF (0-4) Urine Squamous Epithelial Cells Occ /LPF Urine Bacteria 0 /HPF (0-FEW) White Blood Count 12.7 x10^3/uL (4.0-11.0) Red Blood Count 5.36 x10^6/uL (3.50-5.40) Hemoglobin 14.6 g/dL (12.0-15.5) Hematocrit 44.3 % (36.0-47.0) Mean Corpuscular Volume 83 fL (79-100) Mean Corpuscular Hemoglobin 27 pg (25-35) Mean Corpuscular Hemoglobin Concent 33 g/dL (31-37) Red Cell Distribution Width 15.1 % (11.5-14.5) Platelet Count 212 x10^3/uL (140-400) Neutrophils (%) (Auto) 83 % (31-73) Lymphocytes (%) (Auto) 10 % (24-48) Monocytes (%) (Auto) 6 % (0-9) Eosinophils (%) (Auto) 1 % (0-3) Basophils (%) (Auto) 1 % (0-3) Neutrophils # (Auto) 10.6 x10^3uL (1.8-7.7) Lymphocytes # (Auto) 1.3 x10^3/uL (1.0-4.8) Monocytes # (Auto) 0.7 x10^3/uL (0.0-1.1) Eosinophils # (Auto) 0.1 x10^3/uL (0.0-0.7) Basophils # (Auto) 0.1 x10^3/uL (0.0-0.2) Lactic Acid Level 1.4 mmol/L (0.4-2.0) Troponin I Quantitative < 0.017 ng/mL (0.000-0.055) Lipase 157 U/L (73-393) Total Bilirubin 0.4 mg/dL (0.2-1.0) Direct Bilirubin 0.1 mg/dL (0.0-0.2) Aspartate Amino Transf (AST/SGOT) 21 U/L (15-37) Alanine Aminotransferase (ALT/SGPT) 22 U/L (14-59) Alkaline Phosphatase 78 U/L (46-116) Total Protein 7.4 g/dL (6.4-8.2) Albumin 3.9 g/dL (3.4-5.0) Bedside Hemoglobin 13.6 g/dL (12-15) Bedside Hematocrit 40 % (36-40) Bedside Sodium 142 mmol/L (135-145) Bedside Potassium 3.6 mmol/L (3.5-5.0) Bedside Chloride 105 mmol/L (98-110) Bedside Total CO2 28 mmol/L (23-32) Anion Gap 13 mmol/L (6-14) Bedside Blood Urea Nitrogen 16 mg/dL (8-26) Bedside Creatinine 1.2 mg/dL (0.5-1.4) Glucose Level 86 mg/dL (70-99) Bedside Ionized Calcium (Rica) 1.15 mmol/L (1.13-1.32) Test 05/21/17 08:30 White Blood Count 9.4 x10^3/uL (4.0-11.0) Red Blood Count 4.85 x10^6/uL (3.50-5.40) Hemoglobin 13.2 g/dL (12.0-15.5) Hematocrit 40.0 % (36.0-47.0) Mean Corpuscular Volume 82 fL (79-100) Mean Corpuscular Hemoglobin 27 pg (25-35) Mean Corpuscular Hemoglobin Concent 33 g/dL (31-37) Red Cell Distribution Width 15.6 % (11.5-14.5) Platelet Count 182 x10^3/uL (140-400) Neutrophils (%) (Auto) 72 % (31-73) Lymphocytes (%) (Auto) 17 % (24-48) Monocytes (%) (Auto) 9 % (0-9) Eosinophils (%) (Auto) 1 % (0-3) Basophils (%) (Auto) 1 % (0-3) Neutrophils # (Auto) 6.8 x10^3uL (1.8-7.7) Lymphocytes # (Auto) 1.6 x10^3/uL (1.0-4.8) Monocytes # (Auto) 0.9 x10^3/uL (0.0-1.1) Eosinophils # (Auto) 0.0 x10^3/uL (0.0-0.7) Basophils # (Auto) 0.1 x10^3/uL (0.0-0.2) Sodium Level 140 mmol/L (136-145) Potassium Level 3.8 mmol/L (3.5-5.1) Chloride Level 104 mmol/L (98-107) Carbon Dioxide Level 26 mmol/L (21-32) Anion Gap 10 (6-14) Blood Urea Nitrogen 13 mg/dL (7-20) Creatinine 1.2 mg/dL (0.6-1.0) Estimated GFR (Cockcroft-Gault) 44.5 BUN/Creatinine Ratio 11 (6-20) Glucose Level 101 mg/dL (70-99) Calcium Level 8.9 mg/dL (8.5-10.1) Total Bilirubin 0.8 mg/dL (0.2-1.0) Aspartate Amino Transf (AST/SGOT) 15 U/L (15-37) Alanine Aminotransferase (ALT/SGPT) 18 U/L (14-59) Alkaline Phosphatase 62 U/L (46-116) Total Protein 6.6 g/dL (6.4-8.2) Albumin 3.4 g/dL (3.4-5.0) Albumin/Globulin Ratio 1.1 (1.0-1.7) Medications Current Medications Fentanyl Citrate (Fentanyl 2ml Vial) 50 mcg 1X ONCE IV Last administered on 16:24; Start 05/20/17 at 16:15; Stop 05/20/17 at 16:16; Status DC Sodium Chloride 500 ml @ 500 mls/hr 1X ONCE IV Last administered on 16:15; Start 05/20/17 at 16:15; Stop 05/20/17 at 17:14; Status DC Iohexol (Omnipaque 300 Mg/ml) 75 ml 1X ONCE IV Last administered on 17:32; Start 05/20/17 at 17:15; Stop 05/20/17 at 17:16; Status DC Info (Do NOT chart on this entry -- for MONITORING) 1 each PRN DAILY PRN MC SEE COMMENTS; Start 05/20/17 at 17:30; Stop 05/22/17 at 17:29 Morphine Sulfate 4 mg 1X ONCE IV Last administered on 05/20/17 18:01; Start 05/20/17 at 18:00; Stop 05/20/17 at 18:01; Status DC Piperacillin Sod/ Tazobactam Sod (Zosyn Per Pharmacy) 1 each PRN DAILY PRN MC SEE COMMENTS; Start 05/20/17 at 18:15 Sodium Chloride 1,000 ml @ 75 mls/hr 1X ONCE IV Last administered on 18:30; Start 05/20/17 at 18:30; Stop 05/21/17 at 07:49; Status DC Piperacillin Sod/ Tazobactam Sod (Zosyn) 3.375 gm 1X ONCE IVP Last administered on 05/20/17 18:29; Start 05/20/17 at 18:30; Stop 05/20/17 at 18 :31; Status DC Piperacillin Sod/ Tazobactam Sod (Zosyn) 3.375 gm Q6HRS IVP Last administered on 05/21/17 05:40; Start 05/21/17 at 00:00 Morphine Sulfate 2 mg PRN Q2HR PRN IV PAIN Last administered on 05/21/17 09: 54; Start 05/20/17 at 21:30 Ondansetron HCl (Zofran) 4 mg PRN Q6HRS PRN IV NAUSEA/VOMITING Last administered on 05/21/17 05:40; Start 05/20/17 at 21:30 Metronidazole 100 ml @ 100 mls/hr Q8HRS IV Last administered on 05/21/17 09: 57; Start 05/21/17 at 10:00 Famotidine (Pepcid Vial) 20 mg BID IVP Last administered on 05/21/17 09:57; Start 05/21/17 at 10:00 Potassium Chloride/Dextrose/ Sod Cl 1,000 ml @ 75 mls/hr [id number] IV ; Start at 13:00 Active Scripts Active Reported Percocet 5-325 Mg Tablet (Oxycodone/Acetaminophen) 1 Each Tablet 1-2 Tab PO PRN Q4HRS PRN Etodolac 400 Mg Tablet 1 Tab PO HS Trazodone Hcl 150 Mg Tablet 150 Mg PO HS Atorvastatin Calcium 40 Mg Tablet 40 Mg PO HS Mirtazapine 15 Mg Tablet 1 Tab PO QHS Donepezil Hcl 5 Mg Tablet 5 Mg PO HS Zetia (Ezetimibe) 10 Mg Tablet 10 Mg PO HS Losartan Potassium 50 Mg Tablet 50 Mg PO HS Vitals/I & O Vital Sign - Last 24 Hours 05/20/17 05/20/17 05/20/17 05/20/17 15:42 15:47 16:12 16:24 Temp 97.7 97.7 Pulse 109 110 83 Resp 22 24 B/P (MAP) 157/104 (121) 157/104 (121) 145/82 (103) Pulse Ox 98 97 97 100 O2 Delivery Room Air Room Air Room Air Room Air 05/20/17 05/20/17 05/20/17 05/20/17 16:42 17:12 18:01 19:00 Temp 98.5 98.5 Pulse 82 77 87 Resp 18 20 B/P (MAP) 141/85 (103) 142/74 (96) 145/95 (112) Pulse Ox 96 96 97 93 O2 Delivery Room Air Room Air Room Air Room Air 05/20/17 05/20/17 05/20/17 05/20/17 19:10 19:30 19:30 19:30 Temp 98.5 98.5 Pulse 87 Resp 20 B/P (MAP) 145/95 (112) Pulse Ox 94 O2 Delivery Room Air Room Air Room Air Room Air 05/20/17 05/20/17 05/21/17 05/21/17 23:00 23:45 03:10 03:27 Temp 98.4 98.1 98.4 98.1 Pulse 80 82 Resp 18 16 B/P (MAP) 132/78 (96) 158/78 (104) Pulse Ox 93 94 O2 Delivery Room Air Room Air Room Air Room Air 05/21/17 05/21/17 05/21/17 05/21/17 05:39 06:18 07:35 09:54 Temp 100.0 100.0 Pulse 80 Resp 17 16 B/P (MAP) 116/64 (81) Pulse Ox 95 O2 Delivery Room Air Room Air Room Air Room Air 05/21/17 10:58 Temp 97.7 97.7 Pulse 88 Resp 17 B/P (MAP) 131/86 (101) Pulse Ox 92 O2 Delivery Room Air Intake and Output 05/20/17 05/20/17 05/21/17 15:00 23:00 07:00 Intake Total 500 ml 728 ml Balance 500 ml 728 ml DONYA ARMANDO MD May 21, 2017 13:30
[2017-05-21 14:56] VITALS: BP 128/69
[2017-05-21] MEDS: POTASSIUM CL 30MEQ D5-0.45NACL 1,000 ML IV SCH (17:29)
[2017-05-21 19:00] VITALS: BP 142/78
[2017-05-21 23:00] VITALS: BP 131/74
[2017-05-22] MEDS: MORPHINE SULFATE 4 MG/ML DISP.SYRIN. IV PRN ×6 (00:42→21:26)
[2017-05-22] MEDS: PIPERACILLIN/TAZO IV Push 3.375 GM VIAL. IVP SCH ×4 (00:42→18:33)
[2017-05-22 03:00] VITALS: BP 133/76
[2017-05-22] MEDS: POTASSIUM CL 30MEQ D5-0.45NACL 1,000 ML IV SCH ×2 (06:10→18:36)
[2017-05-22 07:00] VITALS: BP 125/79
[2017-05-22] MEDS: FAMOTIDINE 20 MG/2 ML VIAL IVP SCH ×2 (08:45→21:25)
--- NOTE | 2017-05-22 08:48 | PDOC ---
PROGRESS NOTES Chief Complaint Chief Complaint 1. Perforated diverticulitis, small ? abscess 2. HTN, asthma, HLD, memory loss, depression/anxiety, gastric bypass ("stapling "), partial hysterectomy, left knee replacement, bilateral rotator cuff repair History of Present Illness History of Present Illness NUmbers good BUt jumps out of her bed with mild palp of her abd On IV abx NO fevers no leukocytosis PLAN; Would keep NPO still Cont present iVF OUTpt C scope Vitals Vitals Vital Signs Date Time Temp Pulse Resp B/P (MAP) Pulse Ox O2 Delivery O2 Flow Rate FiO2 05/22/17 06:40 Room Air 05/22/17 03:00 97.5 85 18 133/76 (95) 93 97.5 Physical Exam General: Alert, Oriented X3, Cooperative, No acute distress Heart: Regular rate, Normal S1, Normal S2, No murmurs Abdomen: Soft, Other (ND, moderate to severe lower abdominal tenderness, greatest to LLQ, some guarding on exam, large midline scar present ) Extremities: No clubbing, No cyanosis Skin: No rashes, No breakdown Review of Systems Review of Systems abd pain, no cp, soa, emesis, diarrhea, fevers Assessment and Plan Assessmemt and Plan Problems Medical Problems: (1) Abdominal abscess Status: Acute (2) Perforation of sigmoid colon due to diverticulitis Status: Acute Problems: Comment Review of Relevant I have reviewed the following items jocelyn (where applicable) has been applied. Labs Laboratory Tests Test 05/20/17 15:35 05/20/17 16:05 05/20/17 16:10 05/20/17 16:58 Urine Color Yellow Urine Clarity Clear Urine pH 6.0 Urine Specific [place] 1.010 Urine Protein Negative mg/dL (NEG-TRACE) Urine Glucose (UA) Negative mg/dL (NEG) Urine Ketones (Stick) Negative mg/dL (NEG) Urine Blood Negative (NEG) Urine Nitrite Negative (NEG) Urine Bilirubin Small (NEG) Urine Urobilinogen Dipstick 0.2 mg/dL (0.2 mg/dL) Urine Leukocyte Esterase Negative (NEG) Urine RBC 0 /HPF (0-2) Urine WBC 0 /HPF (0-4) Urine Squamous Epithelial Cells Occ /LPF Urine Bacteria 0 /HPF (0-FEW) White Blood Count 12.7 x10^3/uL (4.0-11.0) Red Blood Count 5.36 x10^6/uL (3.50-5.40) Hemoglobin 14.6 g/dL (12.0-15.5) Hematocrit 44.3 % (36.0-47.0) Mean Corpuscular Volume 83 fL (79-100) Mean Corpuscular Hemoglobin 27 pg (25-35) Mean Corpuscular Hemoglobin Concent 33 g/dL (31-37) Red Cell Distribution Width 15.1 % (11.5-14.5) Platelet Count 212 x10^3/uL (140-400) Neutrophils (%) (Auto) 83 % (31-73) Lymphocytes (%) (Auto) 10 % (24-48) Monocytes (%) (Auto) 6 % (0-9) Eosinophils (%) (Auto) 1 % (0-3) Basophils (%) (Auto) 1 % (0-3) Neutrophils # (Auto) 10.6 x10^3uL (1.8-7.7) Lymphocytes # (Auto) 1.3 x10^3/uL (1.0-4.8) Monocytes # (Auto) 0.7 x10^3/uL (0.0-1.1) Eosinophils # (Auto) 0.1 x10^3/uL (0.0-0.7) Basophils # (Auto) 0.1 x10^3/uL (0.0-0.2) Lactic Acid Level 1.4 mmol/L (0.4-2.0) Troponin I Quantitative < 0.017 ng/mL (0.000-0.055) Lipase 157 U/L (73-393) Total Bilirubin 0.4 mg/dL (0.2-1.0) Direct Bilirubin 0.1 mg/dL (0.0-0.2) Aspartate Amino Transf (AST/SGOT) 21 U/L (15-37) Alanine Aminotransferase (ALT/SGPT) 22 U/L (14-59) Alkaline Phosphatase 78 U/L (46-116) Total Protein 7.4 g/dL (6.4-8.2) Albumin 3.9 g/dL (3.4-5.0) Bedside Hemoglobin 13.6 g/dL (12-15) Bedside Hematocrit 40 % (36-40) Bedside Sodium 142 mmol/L (135-145) Bedside Potassium 3.6 mmol/L (3.5-5.0) Bedside Chloride 105 mmol/L (98-110) Bedside Total CO2 28 mmol/L (23-32) Anion Gap 13 mmol/L (6-14) Bedside Blood Urea Nitrogen 16 mg/dL (8-26) Bedside Creatinine 1.2 mg/dL (0.5-1.4) Glucose Level 86 mg/dL (70-99) Bedside Ionized Calcium (Rica) 1.15 mmol/L (1.13-1.32) Test 05/21/17 08:30 White Blood Count 9.4 x10^3/uL (4.0-11.0) Red Blood Count 4.85 x10^6/uL (3.50-5.40) Hemoglobin 13.2 g/dL (12.0-15.5) Hematocrit 40.0 % (36.0-47.0) Mean Corpuscular Volume 82 fL (79-100) Mean Corpuscular Hemoglobin 27 pg (25-35) Mean Corpuscular Hemoglobin Concent 33 g/dL (31-37) Red Cell Distribution Width 15.6 % (11.5-14.5) Platelet Count 182 x10^3/uL (140-400) Neutrophils (%) (Auto) 72 % (31-73) Lymphocytes (%) (Auto) 17 % (24-48) Monocytes (%) (Auto) 9 % (0-9) Eosinophils (%) (Auto) 1 % (0-3) Basophils (%) (Auto) 1 % (0-3) Neutrophils # (Auto) 6.8 x10^3uL (1.8-7.7) Lymphocytes # (Auto) 1.6 x10^3/uL (1.0-4.8) Monocytes # (Auto) 0.9 x10^3/uL (0.0-1.1) Eosinophils # (Auto) 0.0 x10^3/uL (0.0-0.7) Basophils # (Auto) 0.1 x10^3/uL (0.0-0.2) Sodium Level 140 mmol/L (136-145) Potassium Level 3.8 mmol/L (3.5-5.1) Chloride Level 104 mmol/L (98-107) Carbon Dioxide Level 26 mmol/L (21-32) Anion Gap 10 (6-14) Blood Urea Nitrogen 13 mg/dL (7-20) Creatinine 1.2 mg/dL (0.6-1.0) Estimated GFR (Cockcroft-Gault) 44.5 BUN/Creatinine Ratio 11 (6-20) Glucose Level 101 mg/dL (70-99) Calcium Level 8.9 mg/dL (8.5-10.1) Total Bilirubin 0.8 mg/dL (0.2-1.0) Aspartate Amino Transf (AST/SGOT) 15 U/L (15-37) Alanine Aminotransferase (ALT/SGPT) 18 U/L (14-59) Alkaline Phosphatase 62 U/L (46-116) Total Protein 6.6 g/dL (6.4-8.2) Albumin 3.4 g/dL (3.4-5.0) Albumin/Globulin Ratio 1.1 (1.0-1.7) Medications Current Medications Fentanyl Citrate (Fentanyl 2ml Vial) 50 mcg 1X ONCE IV Last administered on 16:24; Start 05/20/17 at 16:15; Stop 05/20/17 at 16:16; Status DC Sodium Chloride 500 ml @ 500 mls/hr 1X ONCE IV Last administered on 16:15; Start 05/20/17 at 16:15; Stop 05/20/17 at 17:14; Status DC Iohexol (Omnipaque 300 Mg/ml) 75 ml 1X ONCE IV Last administered on 17:32; Start 05/20/17 at 17:15; Stop 05/20/17 at 17:16; Status DC Info (Do NOT chart on this entry -- for MONITORING) 1 each PRN DAILY PRN MC SEE COMMENTS; Start 05/20/17 at 17:30; Stop 05/22/17 at 17:29 Morphine Sulfate 4 mg 1X ONCE IV Last administered on 05/20/17 18:01; Start 05/20/17 at 18:00; Stop 05/20/17 at 18:01; Status DC Piperacillin Sod/ Tazobactam Sod (Zosyn Per Pharmacy) 1 each PRN DAILY PRN MC SEE COMMENTS; Start 05/20/17 at 18:15 Sodium Chloride 1,000 ml @ 75 mls/hr 1X ONCE IV Last administered on 18:30; Start 05/20/17 at 18:30; Stop 05/21/17 at 07:49; Status DC Piperacillin Sod/ Tazobactam Sod (Zosyn) 3.375 gm 1X ONCE IVP Last administered on 05/20/17 18:29; Start 05/20/17 at 18:30; Stop 05/20/17 at 18 :31; Status DC Piperacillin Sod/ Tazobactam Sod (Zosyn) 3.375 gm Q6HRS IVP Last administered on 05/22/17 06:10; Start 05/21/17 at 00:00 Morphine Sulfate 2 mg PRN Q2HR PRN IV PAIN Last administered on 05/21/17 22: 00; Start 05/20/17 at 21:30; Stop 05/22/17 at 00:32; Status DC Ondansetron HCl (Zofran) 4 mg PRN Q6HRS PRN IV NAUSEA/VOMITING Last administered on 05/21/17 05:40; Start 05/20/17 at 21:30 Metronidazole 100 ml @ 100 mls/hr Q8HRS IV Last administered on 05/22/17 06: 12; Start 05/21/17 at 10:00 Famotidine (Pepcid Vial) 20 mg BID IVP Last administered on 05/21/17 21:56; Start 05/21/17 at 10:00 Potassium Chloride/Dextrose/ Sod Cl 1,000 ml @ 75 mls/hr [id number] IV Last administered on 05/22/17 06:10; Start 05/21/17 at 13:00 Morphine Sulfate 2 mg PRN Q2HR PRN IV PAIN Last administered on 05/22/17 06: 10; Start 05/22/17 at 00:45 Active Scripts Active Reported Percocet 5-325 Mg Tablet (Oxycodone/Acetaminophen) 1 Each Tablet 1-2 Tab PO PRN Q4HRS PRN Etodolac 400 Mg Tablet 1 Tab PO HS Trazodone Hcl 150 Mg Tablet 150 Mg PO HS Atorvastatin Calcium 40 Mg Tablet 40 Mg PO HS Mirtazapine 15 Mg Tablet 1 Tab PO QHS Donepezil Hcl 5 Mg Tablet 5 Mg PO HS Zetia (Ezetimibe) 10 Mg Tablet 10 Mg PO HS Losartan Potassium 50 Mg Tablet 50 Mg PO HS Vitals/I & O Vital Sign - Last 24 Hours 05/21/17 05/21/17 05/21/17 05/21/17 09:54 10:58 14:56 17:33 Temp 97.7 97.9 97.7 97.9 Pulse 88 81 Resp 16 17 16 16 B/P (MAP) 131/86 (101) 128/69 (88) Pulse Ox 92 92 O2 Delivery Room Air Room Air Room Air Room Air 05/21/17 05/21/17 05/21/17 05/21/17 18:12 19:00 20:00 22:00 Temp 98.1 98.1 Pulse 83 Resp 16 18 B/P (MAP) 142/78 (99) Pulse Ox 94 O2 Delivery Room Air Room Air Room Air 05/21/17 05/21/17 05/22/17 05/22/17 22:30 23:00 00:42 03:00 Temp 98.9 97.5 98.9 97.5 Pulse 61 85 Resp 18 18 B/P (MAP) 131/74 (93) 133/76 (95) Pulse Ox 98 93 O2 Delivery Room Air Room Air Room Air Room Air 05/22/17 05/22/17 06:10 06:40 O2 Delivery Room Air Room Air DONYA ARMANDO MD May 22, 2017 08:48
--- NOTE | 2017-05-22 08:48 | PDOC ---
Subjective: Subjective: Feels about the same - LLQ and periumbilical pain. Objective: Vital Signs: Vital Signs Date Time Temp Pulse Resp B/P (MAP) Pulse Ox O2 Delivery O2 Flow Rate FiO2 05/22/17 06:40 Room Air 05/22/17 03:00 97.5 85 18 133/76 (95) 93 97.5 PE: GEN: NAD LUNGS: clear HEART: RRR ABD: BS+, periumbilical to LLQ discomfort NEURO/PSYCH: A & O 3 A/P: Sigmoid diverticulitis w/ perforation -ongoing LLQ/periumbilical pain -colonoscopy >15 years ago H/o GERD, NSAID use, gastric bypass -on IV H2 sissy -- Continue atbx, bowel rest, consider repeating imaging later. No labs today, will order. VINEET DAY May 22, 2017 08:48
--- NOTE | 2017-05-22 09:10 | PDOC ---
Infectious Disease Note Subjective Subjective pt says she is ok, not much better with pain ROS ROS GEN: Denies fevers, chills, sweats HEENT: Denies blurred vision, sore throat CV: Denies chest pain RESP: Denies shortness of air, cough GI: Denies n/v/d NEURO: Denies confusion, dizziness MSK: Denies weakness, joint pain/swelling Vital Sign Vital Signs Vital Signs Date Time Temp Pulse Resp B/P (MAP) Pulse Ox O2 Delivery O2 Flow Rate FiO2 05/22/17 08:46 16 Room Air 05/22/17 07:00 98.3 90 125/79 (94) 93 98.3 Physical Exam PHYSICAL EXAM GENERAL: NAD, Alert HEENT: PERRL, OC/OP NECK: Supple, no JVD, no LN LUNGS: Clear HEART: S1S2, no gallop, no murmur ABD: Soft, Tender, no organomegaly, no rebound EXT: No edema, no cyanosis 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
[2017-05-22 09:51] LABS: BASO # 0.1 x10^3/uL (0.0-0.2); BASO % 1 % (0-3); EOS % 1 % (0-3); HEMATOCRIT 38.8 % (36.0-47.0); HEMOGLOBIN 12.6 g/dL (12.0-15.5); LYMPH # 1.1 x10^3/uL (1.0-4.8); LYMPH % 11 % (24-48); MEAN CORPUSCULAR HEMOGLOBIN 27 pg (25-35); MEAN CORPUSCULAR HGB CONC 33 g/dL (31-37); MEAN CORPUSCULAR VOLUME 83 fL (79-100); MONO % 10 % (0-9); NEUT % 78 % (31-73); PLATELET COUNT 172 x10^3/uL (140-400); RED BLOOD COUNT 4.67 x10^6/uL (3.50-5.40); RED CELL DISTRIBUTION WIDTH 15.2 % (11.5-14.5); WHITE BLOOD COUNT 9.6 x10^3/uL (4.0-11.0)
[2017-05-22 09:59] LABS: ALBUMIN 3.1 g/dL (3.4-5.0); ALBUMIN/GLOBULIN RATIO 0.9 (1.0-1.7); CALCIUM 8.8 mg/dL (8.5-10.1); CREATININE 1.1 mg/dL (0.6-1.0); GFR 49.2; POTASSIUM 4.3 mmol/L (3.5-5.1); TOTAL PROTEIN 6.5 g/dL (6.4-8.2)
[2017-05-22 11:00] VITALS: BP 132/78
--- NOTE | 2017-05-22 14:37 | PDOC ---
PROGRESS NOTES Subjective Subjective resting, seems a bit better Objective Objective Vital Signs Date Time Temp Pulse Resp B/P (MAP) Pulse Ox O2 Delivery O2 Flow Rate FiO2 05/22/17 14:04 16 Room Air 05/22/17 11:00 98.5 82 132/78 (96) 94 98.5 Intake and Output 05/22/17 07:00 # Voids 10 Physical Exam Abdomen: Soft (tenderness LLQ, perhaps a bit better than on presentation) Extremities: No clubbing, No cyanosis General: Alert, Oriented X3 HEENT: Atraumatic Lungs: Clear to auscultation Assessment Assessment Problems Medical Problems: (1) Abdominal abscess Status: Acute (2) Perforation of sigmoid colon due to diverticulitis Status: Acute Plan Plan of Care Continue with abx, close monitoring Comment Review of Relevant I have reviewed the following items jocelyn (where applicable) has been applied. Labs Laboratory Tests Test 05/20/17 15:35 05/20/17 16:05 05/20/17 16:10 05/20/17 16:58 Urine Color Yellow Urine Clarity Clear Urine pH 6.0 Urine Specific [place] 1.010 Urine Protein Negative mg/dL (NEG-TRACE) Urine Glucose (UA) Negative mg/dL (NEG) Urine Ketones (Stick) Negative mg/dL (NEG) Urine Blood Negative (NEG) Urine Nitrite Negative (NEG) Urine Bilirubin Small (NEG) Urine Urobilinogen Dipstick 0.2 mg/dL (0.2 mg/dL) Urine Leukocyte Esterase Negative (NEG) Urine RBC 0 /HPF (0-2) Urine WBC 0 /HPF (0-4) Urine Squamous Epithelial Cells Occ /LPF Urine Bacteria 0 /HPF (0-FEW) White Blood Count 12.7 x10^3/uL (4.0-11.0) Red Blood Count 5.36 x10^6/uL (3.50-5.40) Hemoglobin 14.6 g/dL (12.0-15.5) Hematocrit 44.3 % (36.0-47.0) Mean Corpuscular Volume 83 fL (79-100) Mean Corpuscular Hemoglobin 27 pg (25-35) Mean Corpuscular Hemoglobin Concent 33 g/dL (31-37) Red Cell Distribution Width 15.1 % (11.5-14.5) Platelet Count 212 x10^3/uL (140-400) Neutrophils (%) (Auto) 83 % (31-73) Lymphocytes (%) (Auto) 10 % (24-48) Monocytes (%) (Auto) 6 % (0-9) Eosinophils (%) (Auto) 1 % (0-3) Basophils (%) (Auto) 1 % (0-3) Neutrophils # (Auto) 10.6 x10^3uL (1.8-7.7) Lymphocytes # (Auto) 1.3 x10^3/uL (1.0-4.8) Monocytes # (Auto) 0.7 x10^3/uL (0.0-1.1) Eosinophils # (Auto) 0.1 x10^3/uL (0.0-0.7) Basophils # (Auto) 0.1 x10^3/uL (0.0-0.2) Lactic Acid Level 1.4 mmol/L (0.4-2.0) Troponin I Quantitative < 0.017 ng/mL (0.000-0.055) Lipase 157 U/L (73-393) Total Bilirubin 0.4 mg/dL (0.2-1.0) Direct Bilirubin 0.1 mg/dL (0.0-0.2) Aspartate Amino Transf (AST/SGOT) 21 U/L (15-37) Alanine Aminotransferase (ALT/SGPT) 22 U/L (14-59) Alkaline Phosphatase 78 U/L (46-116) Total Protein 7.4 g/dL (6.4-8.2) Albumin 3.9 g/dL (3.4-5.0) Bedside Hemoglobin 13.6 g/dL (12-15) Bedside Hematocrit 40 % (36-40) Bedside Sodium 142 mmol/L (135-145) Bedside Potassium 3.6 mmol/L (3.5-5.0) Bedside Chloride 105 mmol/L (98-110) Bedside Total CO2 28 mmol/L (23-32) Anion Gap 13 mmol/L (6-14) Bedside Blood Urea Nitrogen 16 mg/dL (8-26) Bedside Creatinine 1.2 mg/dL (0.5-1.4) Glucose Level 86 mg/dL (70-99) Bedside Ionized Calcium (Rica) 1.15 mmol/L (1.13-1.32) Test 05/21/17 08:30 05/22/17 09:35 White Blood Count 9.4 x10^3/uL (4.0-11.0) 9.6 x10^3/uL (4.0-11.0) Red Blood Count 4.85 x10^6/uL (3.50-5.40) 4.67 x10^6/uL (3.50-5.40) Hemoglobin 13.2 g/dL (12.0-15.5) 12.6 g/dL (12.0-15.5) Hematocrit 40.0 % (36.0-47.0) 38.8 % (36.0-47.0) Mean Corpuscular Volume 82 fL (79-100) 83 fL (79-100) Mean Corpuscular Hemoglobin 27 pg (25-35) 27 pg (25-35) Mean Corpuscular Hemoglobin Concent 33 g/dL (31-37) 33 g/dL (31-37) Red Cell Distribution Width 15.6 % (11.5-14.5) 15.2 % (11.5-14.5) Platelet Count 182 x10^3/uL (140-400) 172 x10^3/uL (140-400) Neutrophils (%) (Auto) 72 % (31-73) 78 % (31-73) Lymphocytes (%) (Auto) 17 % (24-48) 11 % (24-48) Monocytes (%) (Auto) 9 % (0-9) 10 % (0-9) Eosinophils (%) (Auto) 1 % (0-3) 1 % (0-3) Basophils (%) (Auto) 1 % (0-3) 1 % (0-3) Neutrophils # (Auto) 6.8 x10^3uL (1.8-7.7) 7.4 x10^3uL (1.8-7.7) Lymphocytes # (Auto) 1.6 x10^3/uL (1.0-4.8) 1.1 x10^3/uL (1.0-4.8) Monocytes # (Auto) 0.9 x10^3/uL (0.0-1.1) 1.0 x10^3/uL (0.0-1.1) Eosinophils # (Auto) 0.0 x10^3/uL (0.0-0.7) 0.0 x10^3/uL (0.0-0.7) Basophils # (Auto) 0.1 x10^3/uL (0.0-0.2) 0.1 x10^3/uL (0.0-0.2) Sodium Level 140 mmol/L (136-145) 140 mmol/L (136-145) Potassium Level 3.8 mmol/L (3.5-5.1) 4.3 mmol/L (3.5-5.1) Chloride Level 104 mmol/L (98-107) 104 mmol/L (98-107) Carbon Dioxide Level 26 mmol/L (21-32) 27 mmol/L (21-32) Anion Gap 10 (6-14) 9 (6-14) Blood Urea Nitrogen 13 mg/dL (7-20) 10 mg/dL (7-20) Creatinine 1.2 mg/dL (0.6-1.0) 1.1 mg/dL (0.6-1.0) Estimated GFR (Cockcroft-Gault) 44.5 49.2 BUN/Creatinine Ratio 11 (6-20) 9 (6-20) Glucose Level 101 mg/dL (70-99) 125 mg/dL (70-99) Calcium Level 8.9 mg/dL (8.5-10.1) 8.8 mg/dL (8.5-10.1) Total Bilirubin 0.8 mg/dL (0.2-1.0) 1.0 mg/dL (0.2-1.0) Aspartate Amino Transf (AST/SGOT) 15 U/L (15-37) 17 U/L (15-37) Alanine Aminotransferase (ALT/SGPT) 18 U/L (14-59) 11 U/L (14-59) Alkaline Phosphatase 62 U/L (46-116) 62 U/L (46-116) Total Protein 6.6 g/dL (6.4-8.2) 6.5 g/dL (6.4-8.2) Albumin 3.4 g/dL (3.4-5.0) 3.1 g/dL (3.4-5.0) Albumin/Globulin Ratio 1.1 (1.0-1.7) 0.9 (1.0-1.7) Laboratory Tests Test 05/22/17 09:35 White Blood Count 9.6 x10^3/uL (4.0-11.0) Red Blood Count 4.67 x10^6/uL (3.50-5.40) Hemoglobin 12.6 g/dL (12.0-15.5) Hematocrit 38.8 % (36.0-47.0) Mean Corpuscular Volume 83 fL (79-100) Mean Corpuscular Hemoglobin 27 pg (25-35) Mean Corpuscular Hemoglobin Concent 33 g/dL (31-37) Red Cell Distribution Width 15.2 % (11.5-14.5) Platelet Count 172 x10^3/uL (140-400) Neutrophils (%) (Auto) 78 % (31-73) Lymphocytes (%) (Auto) 11 % (24-48) Monocytes (%) (Auto) 10 % (0-9) Eosinophils (%) (Auto) 1 % (0-3) Basophils (%) (Auto) 1 % (0-3) Neutrophils # (Auto) 7.4 x10^3uL (1.8-7.7) Lymphocytes # (Auto) 1.1 x10^3/uL (1.0-4.8) Monocytes # (Auto) 1.0 x10^3/uL (0.0-1.1) Eosinophils # (Auto) 0.0 x10^3/uL (0.0-0.7) Basophils # (Auto) 0.1 x10^3/uL (0.0-0.2) Sodium Level 140 mmol/L (136-145) Potassium Level 4.3 mmol/L (3.5-5.1) Chloride Level 104 mmol/L (98-107) Carbon Dioxide Level 27 mmol/L (21-32) Anion Gap 9 (6-14) Blood Urea Nitrogen 10 mg/dL (7-20) Creatinine 1.1 mg/dL (0.6-1.0) Estimated GFR (Cockcroft-Gault) 49.2 BUN/Creatinine Ratio 9 (6-20) Glucose Level 125 mg/dL (70-99) Calcium Level 8.8 mg/dL (8.5-10.1) Total Bilirubin 1.0 mg/dL (0.2-1.0) Aspartate Amino Transf (AST/SGOT) 17 U/L (15-37) Alanine Aminotransferase (ALT/SGPT) 11 U/L (14-59) Alkaline Phosphatase 62 U/L (46-116) Total Protein 6.5 g/dL (6.4-8.2) Albumin 3.1 g/dL (3.4-5.0) Albumin/Globulin Ratio 0.9 (1.0-1.7) Medications Current Medications Fentanyl Citrate (Fentanyl 2ml Vial) 50 mcg 1X ONCE IV Last administered on 16:24; Start 05/20/17 at 16:15; Stop 05/20/17 at 16:16; Status DC Sodium Chloride 500 ml @ 500 mls/hr 1X ONCE IV Last administered on 16:15; Start 05/20/17 at 16:15; Stop 05/20/17 at 17:14; Status DC Iohexol (Omnipaque 300 Mg/ml) 75 ml 1X ONCE IV Last administered on 17:32; Start 05/20/17 at 17:15; Stop 05/20/17 at 17:16; Status DC Info (Do NOT chart on this entry -- for MONITORING) 1 each PRN DAILY PRN MC SEE COMMENTS; Start 05/20/17 at 17:30; Stop 05/22/17 at 17:29 Morphine Sulfate 4 mg 1X ONCE IV Last administered on 05/20/17 18:01; Start 05/20/17 at 18:00; Stop 05/20/17 at 18:01; Status DC Piperacillin Sod/ Tazobactam Sod (Zosyn Per Pharmacy) 1 each PRN DAILY PRN MC SEE COMMENTS; Start 05/20/17 at 18:15 Sodium Chloride 1,000 ml @ 75 mls/hr 1X ONCE IV Last administered on 18:30; Start 05/20/17 at 18:30; Stop 05/21/17 at 07:49; Status DC Piperacillin Sod/ Tazobactam Sod (Zosyn) 3.375 gm 1X ONCE IVP Last administered on 05/20/17 18:29; Start 05/20/17 at 18:30; Stop 05/20/17 at 18 :31; Status DC Piperacillin Sod/ Tazobactam Sod (Zosyn) 3.375 gm Q6HRS IVP Last administered on 05/22/17 11:40; Start 05/21/17 at 00:00 Morphine Sulfate 2 mg PRN Q2HR PRN IV PAIN Last administered on 05/21/17 22: 00; Start 05/20/17 at 21:30; Stop 05/22/17 at 00:32; Status DC Ondansetron HCl (Zofran) 4 mg PRN Q6HRS PRN IV NAUSEA/VOMITING Last administered on 05/21/17 05:40; Start 05/20/17 at 21:30 Metronidazole 100 ml @ 100 mls/hr Q8HRS IV Last administered on 05/22/17 14: 03; Start 05/21/17 at 10:00 Famotidine (Pepcid Vial) 20 mg BID IVP Last administered on 05/22/17 08:45; Start 05/21/17 at 10:00 Potassium Chloride/Dextrose/ Sod Cl 1,000 ml @ 75 mls/hr [id number] IV Last administered on 05/22/17 06:10; Start 05/21/17 at 13:00 Morphine Sulfate 2 mg PRN Q2HR PRN IV PAIN Last administered on 05/22/17 14: 04; Start 05/22/17 at 00:45 Active Scripts Active Reported Percocet 5-325 Mg Tablet (Oxycodone/Acetaminophen) 1 Each Tablet 1-2 Tab PO PRN Q4HRS PRN Etodolac 400 Mg Tablet 1 Tab PO HS Trazodone Hcl 150 Mg Tablet 150 Mg PO HS Atorvastatin Calcium 40 Mg Tablet 40 Mg PO HS Mirtazapine 15 Mg Tablet 1 Tab PO QHS Donepezil Hcl 5 Mg Tablet 5 Mg PO HS Zetia (Ezetimibe) 10 Mg Tablet 10 Mg PO HS Losartan Potassium 50 Mg Tablet 50 Mg PO HS Vitals/I & O Vital Sign - Last 24 Hours 05/21/17 05/21/17 05/21/17 05/21/17 14:56 17:33 18:12 19:00 Temp 97.9 98.1 97.9 98.1 Pulse 81 83 Resp 16 16 16 18 B/P (MAP) 128/69 (88) 142/78 (99) Pulse Ox 92 94 O2 Delivery Room Air Room Air Room Air 05/21/17 05/21/17 05/21/17 05/21/17 20:00 22:00 22:30 23:00 Temp 98.9 98.9 Pulse 61 Resp 18 B/P (MAP) 131/74 (93) Pulse Ox 98 O2 Delivery Room Air Room Air Room Air Room Air 05/22/17 05/22/17 05/22/17 05/22/17 00:42 03:00 06:10 07:00 Temp 97.5 98.3 97.5 98.3 Pulse 85 90 Resp 18 18 B/P (MAP) 133/76 (95) 125/79 (94) Pulse Ox 93 93 O2 Delivery Room Air Room Air Room Air Room Air 05/22/17 05/22/17 05/22/17 05/22/17 08:46 11:00 11:40 12:17 Temp 98.5 98.5 Pulse 82 Resp 16 18 16 18 B/P (MAP) 132/78 (96) Pulse Ox 94 O2 Delivery Room Air Room Air Room Air Room Air 05/22/17 14:04 Resp 16 O2 Delivery Room Air KENN BRO MD May 22, 2017 14:37
[2017-05-22 15:00] VITALS: BP 131/79
[2017-05-22 19:00] VITALS: BP 154/88
[2017-05-22 23:00] VITALS: BP 131/70
[2017-05-23] MEDS: PIPERACILLIN/TAZO IV Push 3.375 GM VIAL. IVP SCH ×5 (00:37→23:38)
[2017-05-23 03:00] VITALS: BP 137/76
[2017-05-23] MEDS: POTASSIUM CL 30MEQ D5-0.45NACL 1,000 ML IV SCH ×2 (05:41→17:46)
[2017-05-23 07:00] VITALS: BP 139/84
--- NOTE | 2017-05-23 08:13 | PDOC ---
Infectious Disease Note Subjective Subjective pt says she is ok, pain much better ROS ROS GEN: Denies fevers, chills, sweats HEENT: Denies blurred vision, sore throat CV: Denies chest pain RESP: Denies shortness of air, cough GI: Denies n/v/d NEURO: Denies confusion, dizziness MSK: Denies weakness, joint pain/swelling Vital Sign Vital Signs Vital Signs Date Time Temp Pulse Resp B/P (MAP) Pulse Ox O2 Delivery O2 Flow Rate FiO2 05/23/17 03:00 97.5 91 20 137/76 (96) 92 Room Air 97.5 Physical Exam PHYSICAL EXAM GENERAL: NAD, Alert HEENT: PERRL, OC/OP NECK: Supple, no JVD, no LN LUNGS: Clear HEART: S1S2, no gallop, no murmur ABD: Soft, NT, no organomegaly, no rebound EXT: No edema, no cyanosis APPLICATIONS SUPPORT ANALYST: Alert, oriented x 3, no focal neurologic deficit SKIN: No rash IV: ok Labs Lab Laboratory Tests Test 05/22/17 09:35 White Blood Count 9.6 x10^3/uL (4.0-11.0) Red Blood Count 4.67 x10^6/uL (3.50-5.40) Hemoglobin 12.6 g/dL (12.0-15.5) Hematocrit 38.8 % (36.0-47.0) Mean Corpuscular Volume 83 fL (79-100) Mean Corpuscular Hemoglobin 27 pg (25-35) Mean Corpuscular Hemoglobin Concent 33 g/dL (31-37) Red Cell Distribution Width 15.2 % (11.5-14.5) Platelet Count 172 x10^3/uL (140-400) Neutrophils (%) (Auto) 78 % (31-73) Lymphocytes (%) (Auto) 11 % (24-48) Monocytes (%) (Auto) 10 % (0-9) Eosinophils (%) (Auto) 1 % (0-3) Basophils (%) (Auto) 1 % (0-3) Neutrophils # (Auto) 7.4 x10^3uL (1.8-7.7) Lymphocytes # (Auto) 1.1 x10^3/uL (1.0-4.8) Monocytes # (Auto) 1.0 x10^3/uL (0.0-1.1) Eosinophils # (Auto) 0.0 x10^3/uL (0.0-0.7) Basophils # (Auto) 0.1 x10^3/uL (0.0-0.2) Sodium Level 140 mmol/L (136-145) Potassium Level 4.3 mmol/L (3.5-5.1) Chloride Level 104 mmol/L (98-107) Carbon Dioxide Level 27 mmol/L (21-32) Anion Gap 9 (6-14) Blood Urea Nitrogen 10 mg/dL (7-20) Creatinine 1.1 mg/dL (0.6-1.0) Estimated GFR (Cockcroft-Gault) 49.2 BUN/Creatinine Ratio 9 (6-20) Glucose Level 125 mg/dL (70-99) Calcium Level 8.8 mg/dL (8.5-10.1) Total Bilirubin 1.0 mg/dL (0.2-1.0) Aspartate Amino Transf (AST/SGOT) 17 U/L (15-37) Alanine Aminotransferase (ALT/SGPT) 11 U/L (14-59) Alkaline Phosphatase 62 U/L (46-116) Total Protein 6.5 g/dL (6.4-8.2) Albumin 3.1 g/dL (3.4-5.0) Albumin/Globulin Ratio 0.9 (1.0-1.7) Objective Assessment Diverticulitis with perforation Fever Leukocytosis Abdominal pain Plan Plan of Care zosyn culture supportive care, pain control advance diet BOB HINES MD May 23, 2017 08:13
[2017-05-23] MEDS: FAMOTIDINE 20 MG/2 ML VIAL IVP SCH ×2 (08:26→21:15)
--- NOTE | 2017-05-23 08:29 | PDOC ---
SURGICAL PROGRESS NOTE Subjective Patient feeling better having loose stools. Vital Signs Vital Signs Date Time Temp Pulse Resp B/P (MAP) Pulse Ox O2 Delivery O2 Flow Rate FiO2 05/23/17 07:00 97.9 84 18 139/84 (102) 92 Room Air 97.9 I&O Intake and Output 05/23/17 07:00 Intake Total 100 ml Output Total 550 ml Balance -450 ml Intake IV Total 100 ml Output Urine Total 550 ml # Voids 6 # Bowel Movements 1 PATIENT HAS A COURTNEY: No General: Alert, Oriented X3, Cooperative, No acute distress Abdomen: Normal bowel sounds, Soft, No tenderness Labs Laboratory Tests Test 05/21/17 08:30 05/22/17 09:35 White Blood Count 9.4 x10^3/uL (4.0-11.0) 9.6 x10^3/uL (4.0-11.0) Red Blood Count 4.85 x10^6/uL (3.50-5.40) 4.67 x10^6/uL (3.50-5.40) Hemoglobin 13.2 g/dL (12.0-15.5) 12.6 g/dL (12.0-15.5) Hematocrit 40.0 % (36.0-47.0) 38.8 % (36.0-47.0) Mean Corpuscular Volume 82 fL (79-100) 83 fL (79-100) Mean Corpuscular Hemoglobin 27 pg (25-35) 27 pg (25-35) Mean Corpuscular Hemoglobin Concent 33 g/dL (31-37) 33 g/dL (31-37) Red Cell Distribution Width 15.6 % (11.5-14.5) 15.2 % (11.5-14.5) Platelet Count 182 x10^3/uL (140-400) 172 x10^3/uL (140-400) Neutrophils (%) (Auto) 72 % (31-73) 78 % (31-73) Lymphocytes (%) (Auto) 17 % (24-48) 11 % (24-48) Monocytes (%) (Auto) 9 % (0-9) 10 % (0-9) Eosinophils (%) (Auto) 1 % (0-3) 1 % (0-3) Basophils (%) (Auto) 1 % (0-3) 1 % (0-3) Neutrophils # (Auto) 6.8 x10^3uL (1.8-7.7) 7.4 x10^3uL (1.8-7.7) Lymphocytes # (Auto) 1.6 x10^3/uL (1.0-4.8) 1.1 x10^3/uL (1.0-4.8) Monocytes # (Auto) 0.9 x10^3/uL (0.0-1.1) 1.0 x10^3/uL (0.0-1.1) Eosinophils # (Auto) 0.0 x10^3/uL (0.0-0.7) 0.0 x10^3/uL (0.0-0.7) Basophils # (Auto) 0.1 x10^3/uL (0.0-0.2) 0.1 x10^3/uL (0.0-0.2) Sodium Level 140 mmol/L (136-145) 140 mmol/L (136-145) Potassium Level 3.8 mmol/L (3.5-5.1) 4.3 mmol/L (3.5-5.1) Chloride Level 104 mmol/L (98-107) 104 mmol/L (98-107) Carbon Dioxide Level 26 mmol/L (21-32) 27 mmol/L (21-32) Anion Gap 10 (6-14) 9 (6-14) Blood Urea Nitrogen 13 mg/dL (7-20) 10 mg/dL (7-20) Creatinine 1.2 mg/dL (0.6-1.0) 1.1 mg/dL (0.6-1.0) Estimated GFR (Cockcroft-Gault) 44.5 49.2 BUN/Creatinine Ratio 11 (6-20) 9 (6-20) Glucose Level 101 mg/dL (70-99) 125 mg/dL (70-99) Calcium Level 8.9 mg/dL (8.5-10.1) 8.8 mg/dL (8.5-10.1) Total Bilirubin 0.8 mg/dL (0.2-1.0) 1.0 mg/dL (0.2-1.0) Aspartate Amino Transf (AST/SGOT) 15 U/L (15-37) 17 U/L (15-37) Alanine Aminotransferase (ALT/SGPT) 18 U/L (14-59) 11 U/L (14-59) Alkaline Phosphatase 62 U/L (46-116) 62 U/L (46-116) Total Protein 6.6 g/dL (6.4-8.2) 6.5 g/dL (6.4-8.2) Albumin 3.4 g/dL (3.4-5.0) 3.1 g/dL (3.4-5.0) Albumin/Globulin Ratio 1.1 (1.0-1.7) 0.9 (1.0-1.7) Laboratory Tests Test 05/22/17 09:35 White Blood Count 9.6 x10^3/uL (4.0-11.0) Red Blood Count 4.67 x10^6/uL (3.50-5.40) Hemoglobin 12.6 g/dL (12.0-15.5) Hematocrit 38.8 % (36.0-47.0) Mean Corpuscular Volume 83 fL (79-100) Mean Corpuscular Hemoglobin 27 pg (25-35) Mean Corpuscular Hemoglobin Concent 33 g/dL (31-37) Red Cell Distribution Width 15.2 % (11.5-14.5) Platelet Count 172 x10^3/uL (140-400) Neutrophils (%) (Auto) 78 % (31-73) Lymphocytes (%) (Auto) 11 % (24-48) Monocytes (%) (Auto) 10 % (0-9) Eosinophils (%) (Auto) 1 % (0-3) Basophils (%) (Auto) 1 % (0-3) Neutrophils # (Auto) 7.4 x10^3uL (1.8-7.7) Lymphocytes # (Auto) 1.1 x10^3/uL (1.0-4.8) Monocytes # (Auto) 1.0 x10^3/uL (0.0-1.1) Eosinophils # (Auto) 0.0 x10^3/uL (0.0-0.7) Basophils # (Auto) 0.1 x10^3/uL (0.0-0.2) Sodium Level 140 mmol/L (136-145) Potassium Level 4.3 mmol/L (3.5-5.1) Chloride Level 104 mmol/L (98-107) Carbon Dioxide Level 27 mmol/L (21-32) Anion Gap 9 (6-14) Blood Urea Nitrogen 10 mg/dL (7-20) Creatinine 1.1 mg/dL (0.6-1.0) Estimated GFR (Cockcroft-Gault) 49.2 BUN/Creatinine Ratio 9 (6-20) Glucose Level 125 mg/dL (70-99) Calcium Level 8.8 mg/dL (8.5-10.1) Total Bilirubin 1.0 mg/dL (0.2-1.0) Aspartate Amino Transf (AST/SGOT) 17 U/L (15-37) Alanine Aminotransferase (ALT/SGPT) 11 U/L (14-59) Alkaline Phosphatase 62 U/L (46-116) Total Protein 6.5 g/dL (6.4-8.2) Albumin 3.1 g/dL (3.4-5.0) Albumin/Globulin Ratio 0.9 (1.0-1.7) Problem List Problems Medical Problems: (1) Abdominal abscess Status: Acute (2) Perforation of sigmoid colon due to diverticulitis Status: Acute Assessment/Plan Diverticulitis improving Adv diet. Problems: KEMAL MILLER MD May 23, 2017 08:29
--- NOTE | 2017-05-23 10:23 | PDOC ---
PROGRESS NOTES Chief Complaint Chief Complaint 1. Perforated diverticulitis, small ? abscess 2. HTN, asthma, HLD, memory loss, depression/anxiety, gastric bypass ("stapling "), partial hysterectomy, left knee replacement, bilateral rotator cuff repair History of Present Illness History of Present Illness Started on liquid diet just now by LAbs look good VS ok Still some tenderness Dtr at bedside, all qs answered to her content Loose stools PLAN: liquid diet today, see how she does C diff ordered Vitals Vitals Vital Signs Date Time Temp Pulse Resp B/P (MAP) Pulse Ox O2 Delivery O2 Flow Rate FiO2 05/23/17 07:45 Room Air 05/23/17 07:00 97.9 84 18 139/84 (102) 92 97.9 Physical Exam General: Alert, Oriented X3, Cooperative, No acute distress Heart: Regular rate, Normal S1, Normal S2, No murmurs Abdomen: Normal bowel sounds, Soft, No tenderness Extremities: No clubbing, No cyanosis Skin: No rashes, No breakdown Review of Systems Review of Systems abd pain, no CP, SOA or fevers or neuro issues Assessment and Plan Assessmemt and Plan Problems Medical Problems: (1) Abdominal abscess Status: Acute (2) Perforation of sigmoid colon due to diverticulitis Status: Acute Problems: Comment Review of Relevant I have reviewed the following items jocelyn (where applicable) has been applied. Labs Laboratory Tests Test 05/22/17 09:35 White Blood Count 9.6 x10^3/uL (4.0-11.0) Red Blood Count 4.67 x10^6/uL (3.50-5.40) Hemoglobin 12.6 g/dL (12.0-15.5) Hematocrit 38.8 % (36.0-47.0) Mean Corpuscular Volume 83 fL (79-100) Mean Corpuscular Hemoglobin 27 pg (25-35) Mean Corpuscular Hemoglobin Concent 33 g/dL (31-37) Red Cell Distribution Width 15.2 % (11.5-14.5) Platelet Count 172 x10^3/uL (140-400) Neutrophils (%) (Auto) 78 % (31-73) Lymphocytes (%) (Auto) 11 % (24-48) Monocytes (%) (Auto) 10 % (0-9) Eosinophils (%) (Auto) 1 % (0-3) Basophils (%) (Auto) 1 % (0-3) Neutrophils # (Auto) 7.4 x10^3uL (1.8-7.7) Lymphocytes # (Auto) 1.1 x10^3/uL (1.0-4.8) Monocytes # (Auto) 1.0 x10^3/uL (0.0-1.1) Eosinophils # (Auto) 0.0 x10^3/uL (0.0-0.7) Basophils # (Auto) 0.1 x10^3/uL (0.0-0.2) Sodium Level 140 mmol/L (136-145) Potassium Level 4.3 mmol/L (3.5-5.1) Chloride Level 104 mmol/L (98-107) Carbon Dioxide Level 27 mmol/L (21-32) Anion Gap 9 (6-14) Blood Urea Nitrogen 10 mg/dL (7-20) Creatinine 1.1 mg/dL (0.6-1.0) Estimated GFR (Cockcroft-Gault) 49.2 BUN/Creatinine Ratio 9 (6-20) Glucose Level 125 mg/dL (70-99) Calcium Level 8.8 mg/dL (8.5-10.1) Total Bilirubin 1.0 mg/dL (0.2-1.0) Aspartate Amino Transf (AST/SGOT) 17 U/L (15-37) Alanine Aminotransferase (ALT/SGPT) 11 U/L (14-59) Alkaline Phosphatase 62 U/L (46-116) Total Protein 6.5 g/dL (6.4-8.2) Albumin 3.1 g/dL (3.4-5.0) Albumin/Globulin Ratio 0.9 (1.0-1.7) Medications Current Medications Fentanyl Citrate (Fentanyl 2ml Vial) 50 mcg 1X ONCE IV Last administered on 16:24; Start 05/20/17 at 16:15; Stop 05/20/17 at 16:16; Status DC Sodium Chloride 500 ml @ 500 mls/hr 1X ONCE IV Last administered on 16:15; Start 05/20/17 at 16:15; Stop 05/20/17 at 17:14; Status DC Iohexol (Omnipaque 300 Mg/ml) 75 ml 1X ONCE IV Last administered on 17:32; Start 05/20/17 at 17:15; Stop 05/20/17 at 17:16; Status DC Info (Do NOT chart on this entry -- for MONITORING) 1 each PRN DAILY PRN MC SEE COMMENTS; Start 05/20/17 at 17:30; Stop 05/22/17 at 17:29; Status DC Morphine Sulfate 4 mg 1X ONCE IV Last administered on 05/20/17 18:01; Start 05/20/17 at 18:00; Stop 05/20/17 at 18:01; Status DC Piperacillin Sod/ Tazobactam Sod (Zosyn Per Pharmacy) 1 each PRN DAILY PRN MC SEE COMMENTS; Start 05/20/17 at 18:15 Sodium Chloride 1,000 ml @ 75 mls/hr 1X ONCE IV Last administered on 18:30; Start 05/20/17 at 18:30; Stop 05/21/17 at 07:49; Status DC Piperacillin Sod/ Tazobactam Sod (Zosyn) 3.375 gm 1X ONCE IVP Last administered on 05/20/17 18:29; Start 05/20/17 at 18:30; Stop 05/20/17 at 18 :31; Status DC Piperacillin Sod/ Tazobactam Sod (Zosyn) 3.375 gm Q6HRS IVP Last administered on 05/23/17 05:40; Start 05/21/17 at 00:00 Morphine Sulfate 2 mg PRN Q2HR PRN IV PAIN Last administered on 05/21/17 22: 00; Start 05/20/17 at 21:30; Stop 05/22/17 at 00:32; Status DC Ondansetron HCl (Zofran) 4 mg PRN Q6HRS PRN IV NAUSEA/VOMITING Last administered on 05/21/17 05:40; Start 05/20/17 at 21:30 Metronidazole 100 ml @ 100 mls/hr Q8HRS IV Last administered on 05/23/17 05: 39; Start 05/21/17 at 10:00 Famotidine (Pepcid Vial) 20 mg BID IVP Last administered on 05/23/17 08:26; Start 05/21/17 at 10:00 Potassium Chloride/Dextrose/ Sod Cl 1,000 ml @ 75 mls/hr [id number] IV Last administered on 05/23/17 05:41; Start 05/21/17 at 13:00 Morphine Sulfate 2 mg PRN Q2HR PRN IV PAIN Last administered on 05/22/17 21: 26; Start 05/22/17 at 00:45 Active Scripts Active Reported Percocet 5-325 Mg Tablet (Oxycodone/Acetaminophen) 1 Each Tablet 1-2 Tab PO PRN Q4HRS PRN Etodolac 400 Mg Tablet 1 Tab PO HS Trazodone Hcl 150 Mg Tablet 150 Mg PO HS Atorvastatin Calcium 40 Mg Tablet 40 Mg PO HS Mirtazapine 15 Mg Tablet 1 Tab PO QHS Donepezil Hcl 5 Mg Tablet 5 Mg PO HS Zetia (Ezetimibe) 10 Mg Tablet 10 Mg PO HS Losartan Potassium 50 Mg Tablet 50 Mg PO HS Vitals/I & O Vital Sign - Last 24 Hours 05/22/17 05/22/17 05/22/17 05/22/17 11:00 11:40 14:04 14:34 Temp 98.5 98.5 Pulse 82 Resp 18 16 16 18 B/P (MAP) 132/78 (96) Pulse Ox 94 O2 Delivery Room Air Room Air Room Air 05/22/17 05/22/17 05/22/17 05/22/17 15:00 19:00 20:00 21:26 Temp 98.4 97.4 98.4 97.4 Pulse 91 103 Resp 18 22 B/P (MAP) 131/79 (96) 154/88 (110) Pulse Ox 90 90 O2 Delivery Room Air Room Air Room Air Room Air 05/22/17 05/22/17 05/23/17 05/23/17 21:56 23:00 03:00 07:00 Temp 98.2 97.5 97.9 98.2 97.5 97.9 Pulse 89 91 84 Resp 20 20 18 B/P (MAP) 131/70 (90) 137/76 (96) 139/84 (102) Pulse Ox 94 92 92 O2 Delivery Room Air Room Air Room Air Room Air 05/23/17 07:45 O2 Delivery Room Air Intake and Output 05/22/17 05/22/17 05/23/17 15:00 23:00 07:00 Intake Total 100 ml Output Total 550 ml 0 ml Balance -550 ml 100 ml 0 ml DONYA ARMANDO MD May 23, 2017 10:23
[2017-05-23 11:00] VITALS: BP 142/98
[2017-05-23 15:00] VITALS: BP 143/89
[2017-05-23 19:30] VITALS: BP 135/76
[2017-05-23] MEDS: LACTOBACILLUS RHAMNOSUS GG 1 CAPSULE. PO SCH (21:15)
[2017-05-23 23:12] VITALS: BP 130/72
[2017-05-24 03:18] VITALS: BP 128/69
[2017-05-24] MEDS: PIPERACILLIN/TAZO IV Push 3.375 GM VIAL. IVP SCH ×3 (05:56→17:17)
[2017-05-24 07:00] VITALS: BP 146/84
[2017-05-24] MEDS: LACTOBACILLUS RHAMNOSUS GG 1 CAPSULE. PO SCH ×2 (09:19→21:59)
[2017-05-24] MEDS: FAMOTIDINE 20 MG/2 ML VIAL IVP SCH ×2 (09:21→21:59)
--- NOTE | 2017-05-24 10:20 | PDOC ---
Infectious Disease Note Subjective Subjective pt says she is ok, pain much better ROS ROS GEN: Denies fevers, chills, sweats HEENT: Denies blurred vision, sore throat CV: Denies chest pain RESP: Denies shortness of air, cough GI: Denies n/v/ NEURO: Denies confusion, dizziness MSK: Denies weakness, joint pain/swelling Vital Sign Vital Signs Vital Signs Date Time Temp Pulse Resp B/P (MAP) Pulse Ox O2 Delivery O2 Flow Rate FiO2 05/24/17 07:00 97.6 75 16 146/84 (104) 96 Room Air 97.6 Physical Exam PHYSICAL EXAM GENERAL: NAD, Alert HEENT: PERRL, OC/OP NECK: Supple, no JVD, no LN LUNGS: Clear HEART: S1S2, no gallop, no murmur ABD: Soft, NT, no organomegaly, no rebound EXT: No edema, no cyanosis FISHER QUAHOG: Alert, oriented x 3, no focal neurologic deficit SKIN: No rash IV: ok Objective Assessment Diverticulitis with perforation Fever Leukocytosis Abdominal pain C diff Plan Plan of Care zosyn and po vanc culture supportive care, advance d/w pt and daughter in detailt BOB HINES MD May 24, 2017 10:20
[2017-05-24 11:00] VITALS: BP 147/90
--- NOTE | 2017-05-24 11:31 | PDOC ---
PROGRESS NOTES Chief Complaint Chief Complaint 1. Perforated diverticulitis, small , improving with conservative mx 2. C diff diarrhea, 1st epsisode 3. HTN, asthma, HLD, memory loss, depression/anxiety, gastric bypass ("stapling "), partial hysterectomy, left knee replacement, bilateral rotator cuff repair History of Present Illness History of Present Illness C diff positive now Tolerating liquid diet fine ID has started PO vanc Still looose stools per RN PLAN: PO vanc on dc NO PT needs Advance to GI soft Target home tmr Vitals Vitals Vital Signs Date Time Temp Pulse Resp B/P (MAP) Pulse Ox O2 Delivery O2 Flow Rate FiO2 05/24/17 11:00 98.1 65 16 147/90 (109) 97 Room Air 98.1 Physical Exam General: Alert, Oriented X3, Cooperative, No acute distress Heart: Regular rate, Normal S1, Normal S2, No murmurs Abdomen: Normal bowel sounds, Soft, No tenderness Extremities: No clubbing, No cyanosis Skin: No rashes, No breakdown Review of Systems Review of Systems diarrhea, mild abd pain, no fevers, cp, soa Assessment and Plan Assessmemt and Plan Problems Medical Problems: (1) Abdominal abscess Status: Acute (2) Perforation of sigmoid colon due to diverticulitis Status: Acute Problems: Comment Review of Relevant I have reviewed the following items jocelyn (where applicable) has been applied. Labs Laboratory Tests Test 05/23/17 06:56 Clostridium difficile Toxin (PCR) Positive (Negative) Medications Current Medications Fentanyl Citrate (Fentanyl 2ml Vial) 50 mcg 1X ONCE IV Last administered on 16:24; Start 05/20/17 at 16:15; Stop 05/20/17 at 16:16; Status DC Sodium Chloride 500 ml @ 500 mls/hr 1X ONCE IV Last administered on 16:15; Start 05/20/17 at 16:15; Stop 05/20/17 at 17:14; Status DC Iohexol (Omnipaque 300 Mg/ml) 75 ml 1X ONCE IV Last administered on 17:32; Start 05/20/17 at 17:15; Stop 05/20/17 at 17:16; Status DC Info (Do NOT chart on this entry -- for MONITORING) 1 each PRN DAILY PRN MC SEE COMMENTS; Start 05/20/17 at 17:30; Stop 05/22/17 at 17:29; Status DC Morphine Sulfate 4 mg 1X ONCE IV Last administered on 05/20/17 18:01; Start 05/20/17 at 18:00; Stop 05/20/17 at 18:01; Status DC Piperacillin Sod/ Tazobactam Sod (Zosyn Per Pharmacy) 1 each PRN DAILY PRN MC SEE COMMENTS; Start 05/20/17 at 18:15 Sodium Chloride 1,000 ml @ 75 mls/hr 1X ONCE IV Last administered on 18:30; Start 05/20/17 at 18:30; Stop 05/21/17 at 07:49; Status DC Piperacillin Sod/ Tazobactam Sod (Zosyn) 3.375 gm 1X ONCE IVP Last administered on 05/20/17 18:29; Start 05/20/17 at 18:30; Stop 05/20/17 at 18 :31; Status DC Piperacillin Sod/ Tazobactam Sod (Zosyn) 3.375 gm Q6HRS IVP Last administered on 05/24/17 05:56; Start 05/21/17 at 00:00 Morphine Sulfate 2 mg PRN Q2HR PRN IV PAIN Last administered on 05/21/17 22: 00; Start 05/20/17 at 21:30; Stop 05/22/17 at 00:32; Status DC Ondansetron HCl (Zofran) 4 mg PRN Q6HRS PRN IV NAUSEA/VOMITING Last administered on 05/21/17 05:40; Start 05/20/17 at 21:30 Metronidazole 100 ml @ 100 mls/hr Q8HRS IV Last administered on 05/24/17 05: 56; Start 05/21/17 at 10:00; Stop 05/24/17 at 10:09; Status DC Famotidine (Pepcid Vial) 20 mg BID IVP Last administered on 05/24/17 09:21; Start 05/21/17 at 10:00 Potassium Chloride/Dextrose/ Sod Cl 1,000 ml @ 75 mls/hr [id number] IV Last administered on 05/23/17 17:46; Start 05/21/17 at 13:00 Morphine Sulfate 2 mg PRN Q2HR PRN IV PAIN Last administered on 05/22/17 21: 26; Start 05/22/17 at 00:45 Lactobacillus Rhamnosus (Culturelle) 1 cap BID PO Last administered on 09:19; Start 05/23/17 at 21:00 Vancomycin HCl 125 mg [id number] PO ; Start 05/24/17 at 11:00 Active Scripts Active Reported Percocet 5-325 Mg Tablet (Oxycodone/Acetaminophen) 1 Each Tablet 1-2 Tab PO PRN Q4HRS PRN Etodolac 400 Mg Tablet 1 Tab PO HS Trazodone Hcl 150 Mg Tablet 150 Mg PO HS Atorvastatin Calcium 40 Mg Tablet 40 Mg PO HS Mirtazapine 15 Mg Tablet 1 Tab PO QHS Donepezil Hcl 5 Mg Tablet 5 Mg PO HS Zetia (Ezetimibe) 10 Mg Tablet 10 Mg PO HS Losartan Potassium 50 Mg Tablet 50 Mg PO HS Vitals/I & O Vital Sign - Last 24 Hours 05/23/17 05/23/17 05/23/17 05/23/17 15:00 19:30 20:00 23:12 Temp 97.9 98.0 98.1 97.9 98.0 98.1 Pulse 109 71 70 Resp 18 18 18 B/P (MAP) 143/89 (107) 135/76 (95) 130/72 (91) Pulse Ox 96 94 95 O2 Delivery Room Air Room Air Room Air Room Air 05/24/17 05/24/17 05/24/17 05/24/17 03:18 07:00 07:40 11:00 Temp 98.5 97.6 98.1 98.5 97.6 98.1 Pulse 70 75 65 Resp 18 16 16 B/P (MAP) 128/69 (88) 146/84 (104) 147/90 (109) Pulse Ox 92 96 97 O2 Delivery Room Air Room Air Room Air Room Air Intake and Output 05/23/17 05/23/17 05/24/17 15:00 23:00 07:00 Intake Total 100 ml 2665.28 ml Output Total 250 ml Balance 100 ml 2415.28 ml DONYA ARMANDO MD May 24, 2017 11:31
[2017-05-24] MEDS: POTASSIUM CL 30MEQ D5-0.45NACL 1,000 ML IV SCH ×2 (12:19→22:00)
[2017-05-24] MEDS: VANCOMYCIN 125 MG/2.5 ML ORAL SOLUTION. PO SCH ×3 (12:20→22:00)
[2017-05-24] MEDS ORDERED: MORPHINE SULFATE 2 MG/ML DISP.SYRIN. IV PRN (13:45)
--- NOTE | 2017-05-24 14:25 | PDOC ---
PROGRESS NOTES Subjective Subjective improving Objective Objective Vital Signs Date Time Temp Pulse Resp B/P (MAP) Pulse Ox O2 Delivery O2 Flow Rate FiO2 05/24/17 11:00 98.1 65 16 147/90 (109) 97 Room Air 98.1 Intake and Output 05/24/17 07:00 Intake Total 2765.28 ml Output Total 250 ml Balance 2515.28 ml Intake Oral 740 ml IV Total 2025.28 ml Output Urine Total 250 ml # Voids 16 # Bowel Movements 18 Physical Exam Abdomen: Soft (much less tender LLQ with palpation) Heart: Regular rate Extremities: No clubbing, No cyanosis General: Alert, Oriented X3, Cooperative Neuro: Normal speech Psych/Mental Status: Mental status NL Assessment Assessment Problems Medical Problems: (1) Abdominal abscess Status: Acute (2) Perforation of sigmoid colon due to diverticulitis Status: Acute Plan Plan of Care Good response with medical management; continue, no surgical plans at this time Comment Review of Relevant I have reviewed the following items jocelyn (where applicable) has been applied. Labs Laboratory Tests Test 05/23/17 06:56 Clostridium difficile Toxin (PCR) Positive (Negative) Medications Current Medications Fentanyl Citrate (Fentanyl 2ml Vial) 50 mcg 1X ONCE IV Last administered on 16:24; Start 05/20/17 at 16:15; Stop 05/20/17 at 16:16; Status DC Sodium Chloride 500 ml @ 500 mls/hr 1X ONCE IV Last administered on 16:15; Start 05/20/17 at 16:15; Stop 05/20/17 at 17:14; Status DC Iohexol (Omnipaque 300 Mg/ml) 75 ml 1X ONCE IV Last administered on 17:32; Start 05/20/17 at 17:15; Stop 05/20/17 at 17:16; Status DC Info (Do NOT chart on this entry -- for MONITORING) 1 each PRN DAILY PRN MC SEE COMMENTS; Start 05/20/17 at 17:30; Stop 05/22/17 at 17:29; Status DC Morphine Sulfate 4 mg 1X ONCE IV Last administered on 05/20/17 18:01; Start 05/20/17 at 18:00; Stop 05/20/17 at 18:01; Status DC Piperacillin Sod/ Tazobactam Sod (Zosyn Per Pharmacy) 1 each PRN DAILY PRN MC SEE COMMENTS; Start 05/20/17 at 18:15 Sodium Chloride 1,000 ml @ 75 mls/hr 1X ONCE IV Last administered on 18:30; Start 05/20/17 at 18:30; Stop 05/21/17 at 07:49; Status DC Piperacillin Sod/ Tazobactam Sod (Zosyn) 3.375 gm 1X ONCE IVP Last administered on 05/20/17 18:29; Start 05/20/17 at 18:30; Stop 05/20/17 at 18 :31; Status DC Piperacillin Sod/ Tazobactam Sod (Zosyn) 3.375 gm Q6HRS IVP Last administered on 05/24/17 12:20; Start 05/21/17 at 00:00 Morphine Sulfate 2 mg PRN Q2HR PRN IV PAIN Last administered on 05/21/17 22: 00; Start 05/20/17 at 21:30; Stop 05/22/17 at 00:32; Status DC Ondansetron HCl (Zofran) 4 mg PRN Q6HRS PRN IV NAUSEA/VOMITING Last administered on 05/21/17 05:40; Start 05/20/17 at 21:30 Metronidazole 100 ml @ 100 mls/hr Q8HRS IV Last administered on 05/24/17 05: 56; Start 05/21/17 at 10:00; Stop 05/24/17 at 10:09; Status DC Famotidine (Pepcid Vial) 20 mg BID IVP Last administered on 05/24/17 09:21; Start 05/21/17 at 10:00 Potassium Chloride/Dextrose/ Sod Cl 1,000 ml @ 75 mls/hr [id number] IV Last administered on 05/24/17 12:19; Start 05/21/17 at 13:00 Morphine Sulfate 2 mg PRN Q2HR PRN IV PAIN Last administered on 05/22/17 21: 26; Start 05/22/17 at 00:45; Stop 05/24/17 at 13:35; Status DC Lactobacillus Rhamnosus (Culturelle) 1 cap BID PO Last administered on 09:19; Start 05/23/17 at 21:00 Vancomycin HCl 125 mg [id number] PO Last administered on 05/24/17t 12:20; Start 05/24/17 at 11:00 Morphine Sulfate 2 mg PRN Q2HR PRN IV PAIN; Start 05/24/17 at 13:45 Active Scripts Active Reported Percocet 5-325 Mg Tablet (Oxycodone/Acetaminophen) 1 Each Tablet 1-2 Tab PO PRN Q4HRS PRN Etodolac 400 Mg Tablet 1 Tab PO HS Trazodone Hcl 150 Mg Tablet 150 Mg PO HS Atorvastatin Calcium 40 Mg Tablet 40 Mg PO HS Mirtazapine 15 Mg Tablet 1 Tab PO QHS Donepezil Hcl 5 Mg Tablet 5 Mg PO HS Zetia (Ezetimibe) 10 Mg Tablet 10 Mg PO HS Losartan Potassium 50 Mg Tablet 50 Mg PO HS Vitals/I & O Vital Sign - Last 24 Hours 05/23/17 05/23/17 05/23/17 05/23/17 15:00 19:30 20:00 23:12 Temp 97.9 98.0 98.1 97.9 98.0 98.1 Pulse 109 71 70 Resp 18 18 18 B/P (MAP) 143/89 (107) 135/76 (95) 130/72 (91) Pulse Ox 96 94 95 O2 Delivery Room Air Room Air Room Air Room Air 05/24/17 05/24/17 05/24/17 05/24/17 03:18 07:00 07:40 11:00 Temp 98.5 97.6 98.1 98.5 97.6 98.1 Pulse 70 75 65 Resp 18 16 16 B/P (MAP) 128/69 (88) 146/84 (104) 147/90 (109) Pulse Ox 92 96 97 O2 Delivery Room Air Room Air Room Air Room Air Intake and Output 05/23/17 05/23/17 05/24/17 15:00 23:00 07:00 Intake Total 100 ml 2665.28 ml Output Total 250 ml Balance 100 ml 2415.28 ml KENN BRO MD May 24, 2017 14:25
[2017-05-24 15:00] VITALS: BP 123/78
[2017-05-24 19:00] VITALS: BP 130/89
[2017-05-24 23:00] VITALS: BP 127/70
[2017-05-25] MEDS: PIPERACILLIN/TAZO IV Push 3.375 GM VIAL. IVP SCH ×4 (00:58→17:50)
[2017-05-25 03:00] VITALS: BP 118/63
[2017-05-25 04:46] LABS: BASO # 0.1 x10^3/uL (0.0-0.2); BASO % 1 % (0-3); EOS % 5 % (0-3); HEMATOCRIT 39.9 % (36.0-47.0); HEMOGLOBIN 13.2 g/dL (12.0-15.5); LYMPH # 1.7 x10^3/uL (1.0-4.8); LYMPH % 22 % (24-48); MEAN CORPUSCULAR HEMOGLOBIN 27 pg (25-35); MEAN CORPUSCULAR HGB CONC 33 g/dL (31-37); MEAN CORPUSCULAR VOLUME 82 fL (79-100); MONO % 13 % (0-9); NEUT % 60 % (31-73); PLATELET COUNT 263 x10^3/uL (140-400); RED BLOOD COUNT 4.85 x10^6/uL (3.50-5.40); WHITE BLOOD COUNT 7.5 x10^3/uL (4.0-11.0)
[2017-05-25 05:06] LABS: CALCIUM 8.8 mg/dL (8.5-10.1); CREATININE 0.8 mg/dL (0.6-1.0); GFR 71.1; POTASSIUM 4.2 mmol/L (3.5-5.1)
[2017-05-25] MEDS: POTASSIUM CL 30MEQ D5-0.45NACL 1,000 ML IV SCH ×2 (07:17→20:48)
[2017-05-25 08:30] VITALS: BP 146/86
[2017-05-25] MEDS: FAMOTIDINE 20 MG/2 ML VIAL IVP SCH (09:15)
[2017-05-25] MEDS: VANCOMYCIN 125 MG/2.5 ML ORAL SOLUTION. PO SCH ×4 (09:16→20:49)
[2017-05-25] MEDS: LACTOBACILLUS RHAMNOSUS GG 1 CAPSULE. PO SCH ×2 (09:16→20:48)
--- NOTE | 2017-05-25 10:53 | PDOC ---
G I PROGRESS NOTE Subjective Sleeping, not awakened. Objective Others' notes reviewed. Physical Exam No PE. Review of Relevant I have reviewed the following items jocelyn (where applicable) has been applied. Labs Laboratory Tests Test 05/25/17 04:00 White Blood Count 7.5 x10^3/uL (4.0-11.0) Red Blood Count 4.85 x10^6/uL (3.50-5.40) Hemoglobin 13.2 g/dL (12.0-15.5) Hematocrit 39.9 % (36.0-47.0) Mean Corpuscular Volume 82 fL (79-100) Mean Corpuscular Hemoglobin 27 pg (25-35) Mean Corpuscular Hemoglobin Concent 33 g/dL (31-37) Red Cell Distribution Width 15.0 % (11.5-14.5) Platelet Count 263 x10^3/uL (140-400) Neutrophils (%) (Auto) 60 % (31-73) Lymphocytes (%) (Auto) 22 % (24-48) Monocytes (%) (Auto) 13 % (0-9) Eosinophils (%) (Auto) 5 % (0-3) Basophils (%) (Auto) 1 % (0-3) Neutrophils # (Auto) 4.5 x10^3uL (1.8-7.7) Lymphocytes # (Auto) 1.7 x10^3/uL (1.0-4.8) Monocytes # (Auto) 0.9 x10^3/uL (0.0-1.1) Eosinophils # (Auto) 0.4 x10^3/uL (0.0-0.7) Basophils # (Auto) 0.1 x10^3/uL (0.0-0.2) Sodium Level 142 mmol/L (136-145) Potassium Level 4.2 mmol/L (3.5-5.1) Chloride Level 109 mmol/L (98-107) Carbon Dioxide Level 24 mmol/L (21-32) Anion Gap 9 (6-14) Blood Urea Nitrogen 8 mg/dL (7-20) Creatinine 0.8 mg/dL (0.6-1.0) Estimated GFR (Cockcroft-Gault) 71.1 Glucose Level 104 mg/dL (70-99) Calcium Level 8.8 mg/dL (8.5-10.1) Laboratory Tests Test 05/25/17 04:00 White Blood Count 7.5 x10^3/uL (4.0-11.0) Red Blood Count 4.85 x10^6/uL (3.50-5.40) Hemoglobin 13.2 g/dL (12.0-15.5) Hematocrit 39.9 % (36.0-47.0) Mean Corpuscular Volume 82 fL (79-100) Mean Corpuscular Hemoglobin 27 pg (25-35) Mean Corpuscular Hemoglobin Concent 33 g/dL (31-37) Red Cell Distribution Width 15.0 % (11.5-14.5) Platelet Count 263 x10^3/uL (140-400) Neutrophils (%) (Auto) 60 % (31-73) Lymphocytes (%) (Auto) 22 % (24-48) Monocytes (%) (Auto) 13 % (0-9) Eosinophils (%) (Auto) 5 % (0-3) Basophils (%) (Auto) 1 % (0-3) Neutrophils # (Auto) 4.5 x10^3uL (1.8-7.7) Lymphocytes # (Auto) 1.7 x10^3/uL (1.0-4.8) Monocytes # (Auto) 0.9 x10^3/uL (0.0-1.1) Eosinophils # (Auto) 0.4 x10^3/uL (0.0-0.7) Basophils # (Auto) 0.1 x10^3/uL (0.0-0.2) Sodium Level 142 mmol/L (136-145) Potassium Level 4.2 mmol/L (3.5-5.1) Chloride Level 109 mmol/L (98-107) Carbon Dioxide Level 24 mmol/L (21-32) Anion Gap 9 (6-14) Blood Urea Nitrogen 8 mg/dL (7-20) Creatinine 0.8 mg/dL (0.6-1.0) Estimated GFR (Cockcroft-Gault) 71.1 Glucose Level 104 mg/dL (70-99) Calcium Level 8.8 mg/dL (8.5-10.1) Medications Current Medications Fentanyl Citrate (Fentanyl 2ml Vial) 50 mcg 1X ONCE IV Last administered on 16:24; Start 05/20/17 at 16:15; Stop 05/20/17 at 16:16; Status DC Sodium Chloride 500 ml @ 500 mls/hr 1X ONCE IV Last administered on 16:15; Start 05/20/17 at 16:15; Stop 05/20/17 at 17:14; Status DC Iohexol (Omnipaque 300 Mg/ml) 75 ml 1X ONCE IV Last administered on 17:32; Start 05/20/17 at 17:15; Stop 05/20/17 at 17:16; Status DC Info (Do NOT chart on this entry -- for MONITORING) 1 each PRN DAILY PRN MC SEE COMMENTS; Start 05/20/17 at 17:30; Stop 05/22/17 at 17:29; Status DC Morphine Sulfate 4 mg 1X ONCE IV Last administered on 05/20/17 18:01; Start 05/20/17 at 18:00; Stop 05/20/17 at 18:01; Status DC Piperacillin Sod/ Tazobactam Sod (Zosyn Per Pharmacy) 1 each PRN DAILY PRN MC SEE COMMENTS; Start 05/20/17 at 18:15 Sodium Chloride 1,000 ml @ 75 mls/hr 1X ONCE IV Last administered on 18:30; Start 05/20/17 at 18:30; Stop 05/21/17 at 07:49; Status DC Piperacillin Sod/ Tazobactam Sod (Zosyn) 3.375 gm 1X ONCE IVP Last administered on 05/20/17 18:29; Start 05/20/17 at 18:30; Stop 05/20/17 at 18 :31; Status DC Piperacillin Sod/ Tazobactam Sod (Zosyn) 3.375 gm Q6HRS IVP Last administered on 05/25/17 07:17; Start 05/21/17 at 00:00 Morphine Sulfate 2 mg PRN Q2HR PRN IV PAIN Last administered on 05/21/17 22: 00; Start 05/20/17 at 21:30; Stop 05/22/17 at 00:32; Status DC Ondansetron HCl (Zofran) 4 mg PRN Q6HRS PRN IV NAUSEA/VOMITING Last administered on 05/21/17 05:40; Start 05/20/17 at 21:30 Metronidazole 100 ml @ 100 mls/hr Q8HRS IV Last administered on 05/24/17 05: 56; Start 05/21/17 at 10:00; Stop 05/24/17 at 10:09; Status DC Famotidine (Pepcid Vial) 20 mg BID IVP Last administered on 05/25/17 09:15; Start 05/21/17 at 10:00 Potassium Chloride/Dextrose/ Sod Cl 1,000 ml @ 75 mls/hr [id number] IV Last administered on 05/25/17 07:17; Start 05/21/17 at 13:00 Morphine Sulfate 2 mg PRN Q2HR PRN IV PAIN Last administered on 05/22/17 21: 26; Start 05/22/17 at 00:45; Stop 05/24/17 at 13:35; Status DC Lactobacillus Rhamnosus (Culturelle) 1 cap BID PO Last administered on 09:16; Start 05/23/17 at 21:00 Vancomycin HCl 125 mg [id number] PO Last administered on 05/25/17 09:16; Start 05/24/17 at 11:00 Morphine Sulfate 2 mg PRN Q2HR PRN IV PAIN; Start 05/24/17 at 13:45 Active Scripts Active Reported Percocet 5-325 Mg Tablet (Oxycodone/Acetaminophen) 1 Each Tablet 1-2 Tab PO PRN Q4HRS PRN Etodolac 400 Mg Tablet 1 Tab PO HS Trazodone Hcl 150 Mg Tablet 150 Mg PO HS Atorvastatin Calcium 40 Mg Tablet 40 Mg PO HS Mirtazapine 15 Mg Tablet 1 Tab PO QHS Donepezil Hcl 5 Mg Tablet 5 Mg PO HS Zetia (Ezetimibe) 10 Mg Tablet 10 Mg PO HS Losartan Potassium 50 Mg Tablet 50 Mg PO HS Vitals/I & O Vital Sign - Last 24 Hours 05/24/17 05/24/17 05/24/17 05/24/17 11:00 15:00 19:00 20:00 Temp 98.1 97.7 98.1 98.1 97.7 98.1 Pulse 65 68 89 Resp 16 18 16 B/P (MAP) 147/90 (109) 123/78 (93) 130/89 (103) Pulse Ox 97 95 96 O2 Delivery Room Air Room Air Room Air Room Air 05/24/17 05/25/17 05/25/17 23:00 03:00 08:30 Temp 97.5 97.9 97.5 97.5 97.9 97.5 Pulse 89 71 86 Resp 16 16 20 B/P (MAP) 127/70 (89) 118/63 (81) 146/86 (106) Pulse Ox 95 92 97 O2 Delivery Room Air Room Air Intake and Output 05/24/17 05/24/17 05/25/17 15:00 23:00 07:00 Intake Total 1590 ml Output Total 300 ml Balance 1290 ml Problem List Problems Medical Problems: (1) Abdominal abscess Status: Acute (2) Perforation of sigmoid colon due to diverticulitis Status: Acute Assessment Diverticulitis with perf (microperf?). Per others, doing better on conservative Rx. Plan of Care: Continue current Tx, Mgmt SEKOU PERRY MD May 25, 2017 10:53
[2017-05-25 11:15] VITALS: BP 130/92
--- NOTE | 2017-05-25 11:18 | PDOC ---
PROGRESS NOTES Chief Complaint Chief Complaint 1. Perforated diverticulitis, small , improving with conservative mx 2. C diff diarrhea, 1st epsisode 3. HTN, asthma, HLD, memory loss, depression/anxiety, gastric bypass ("stapling "), partial hysterectomy, left knee replacement, bilateral rotator cuff repair History of Present Illness History of Present Illness Pt AAOx3, NAD Tolerating Soft Diet Well Vanycomycin PO per ID C diff positive Vitals Vitals Vital Signs Date Time Temp Pulse Resp B/P (MAP) Pulse Ox O2 Delivery O2 Flow Rate FiO2 05/25/17 08:30 97.5 86 20 146/86 (106) 97 97.5 05/25/17 03:00 Room Air Physical Exam General: Alert, Oriented X3, Cooperative, No acute distress Heart: Regular rate, Normal S1, No murmurs Lungs: Clear, Other (No RRW) Abdomen: No hepatosplenomegaly, No masses Extremities: No clubbing, No cyanosis Skin: No rashes, No breakdown Labs LABS Laboratory Tests Test 05/25/17 04:00 White Blood Count 7.5 x10^3/uL (4.0-11.0) Red Blood Count 4.85 x10^6/uL (3.50-5.40) Hemoglobin 13.2 g/dL (12.0-15.5) Hematocrit 39.9 % (36.0-47.0) Mean Corpuscular Volume 82 fL (79-100) Mean Corpuscular Hemoglobin 27 pg (25-35) Mean Corpuscular Hemoglobin Concent 33 g/dL (31-37) Red Cell Distribution Width 15.0 % (11.5-14.5) Platelet Count 263 x10^3/uL (140-400) Neutrophils (%) (Auto) 60 % (31-73) Lymphocytes (%) (Auto) 22 % (24-48) Monocytes (%) (Auto) 13 % (0-9) Eosinophils (%) (Auto) 5 % (0-3) Basophils (%) (Auto) 1 % (0-3) Neutrophils # (Auto) 4.5 x10^3uL (1.8-7.7) Lymphocytes # (Auto) 1.7 x10^3/uL (1.0-4.8) Monocytes # (Auto) 0.9 x10^3/uL (0.0-1.1) Eosinophils # (Auto) 0.4 x10^3/uL (0.0-0.7) Basophils # (Auto) 0.1 x10^3/uL (0.0-0.2) Sodium Level 142 mmol/L (136-145) Potassium Level 4.2 mmol/L (3.5-5.1) Chloride Level 109 mmol/L (98-107) Carbon Dioxide Level 24 mmol/L (21-32) Anion Gap 9 (6-14) Blood Urea Nitrogen 8 mg/dL (7-20) Creatinine 0.8 mg/dL (0.6-1.0) Estimated GFR (Cockcroft-Gault) 71.1 Glucose Level 104 mg/dL (70-99) Calcium Level 8.8 mg/dL (8.5-10.1) Review of Systems Review of Systems General: No Fatigue, Hunger CV: No Chest Pain, Palpitations Assessment and Plan Assessmemt and Plan Assessment: Abdominal abscess Perforation of sigmoid colon due to diverticulitis Diverticulitis C diff diarrhea 1st epsisode HTN Asthma HLD Memory loss Depression Anxiety Gastric bypass Partial Hysterectomy Left Knee replacement Bilateral Rotator Cuff repair PLAN: Possible DC target tomorrow Hope to Advance Diet as Tolerated Continue Antibiotics Continue PT/OT Continue Home Meds Recheck Labs Problems: Comment Review of Relevant I have reviewed the following items jocelyn (where applicable) has been applied. Labs Laboratory Tests Test 05/25/17 04:00 White Blood Count 7.5 x10^3/uL (4.0-11.0) Red Blood Count 4.85 x10^6/uL (3.50-5.40) Hemoglobin 13.2 g/dL (12.0-15.5) Hematocrit 39.9 % (36.0-47.0) Mean Corpuscular Volume 82 fL (79-100) Mean Corpuscular Hemoglobin 27 pg (25-35) Mean Corpuscular Hemoglobin Concent 33 g/dL (31-37) Red Cell Distribution Width 15.0 % (11.5-14.5) Platelet Count 263 x10^3/uL (140-400) Neutrophils (%) (Auto) 60 % (31-73) Lymphocytes (%) (Auto) 22 % (24-48) Monocytes (%) (Auto) 13 % (0-9) Eosinophils (%) (Auto) 5 % (0-3) Basophils (%) (Auto) 1 % (0-3) Neutrophils # (Auto) 4.5 x10^3uL (1.8-7.7) Lymphocytes # (Auto) 1.7 x10^3/uL (1.0-4.8) Monocytes # (Auto) 0.9 x10^3/uL (0.0-1.1) Eosinophils # (Auto) 0.4 x10^3/uL (0.0-0.7) Basophils # (Auto) 0.1 x10^3/uL (0.0-0.2) Sodium Level 142 mmol/L (136-145) Potassium Level 4.2 mmol/L (3.5-5.1) Chloride Level 109 mmol/L (98-107) Carbon Dioxide Level 24 mmol/L (21-32) Anion Gap 9 (6-14) Blood Urea Nitrogen 8 mg/dL (7-20) Creatinine 0.8 mg/dL (0.6-1.0) Estimated GFR (Cockcroft-Gault) 71.1 Glucose Level 104 mg/dL (70-99) Calcium Level 8.8 mg/dL (8.5-10.1) Laboratory Tests Test 05/25/17 04:00 White Blood Count 7.5 x10^3/uL (4.0-11.0) Red Blood Count 4.85 x10^6/uL (3.50-5.40) Hemoglobin 13.2 g/dL (12.0-15.5) Hematocrit 39.9 % (36.0-47.0) Mean Corpuscular Volume 82 fL (79-100) Mean Corpuscular Hemoglobin 27 pg (25-35) Mean Corpuscular Hemoglobin Concent 33 g/dL (31-37) Red Cell Distribution Width 15.0 % (11.5-14.5) Platelet Count 263 x10^3/uL (140-400) Neutrophils (%) (Auto) 60 % (31-73) Lymphocytes (%) (Auto) 22 % (24-48) Monocytes (%) (Auto) 13 % (0-9) Eosinophils (%) (Auto) 5 % (0-3) Basophils (%) (Auto) 1 % (0-3) Neutrophils # (Auto) 4.5 x10^3uL (1.8-7.7) Lymphocytes # (Auto) 1.7 x10^3/uL (1.0-4.8) Monocytes # (Auto) 0.9 x10^3/uL (0.0-1.1) Eosinophils # (Auto) 0.4 x10^3/uL (0.0-0.7) Basophils # (Auto) 0.1 x10^3/uL (0.0-0.2) Sodium Level 142 mmol/L (136-145) Potassium Level 4.2 mmol/L (3.5-5.1) Chloride Level 109 mmol/L (98-107) Carbon Dioxide Level 24 mmol/L (21-32) Anion Gap 9 (6-14) Blood Urea Nitrogen 8 mg/dL (7-20) Creatinine 0.8 mg/dL (0.6-1.0) Estimated GFR (Cockcroft-Gault) 71.1 Glucose Level 104 mg/dL (70-99) Calcium Level 8.8 mg/dL (8.5-10.1) Medications Current Medications Fentanyl Citrate (Fentanyl 2ml Vial) 50 mcg 1X ONCE IV Last administered on 16:24; Start 05/20/17 at 16:15; Stop 05/20/17 at 16:16; Status DC Sodium Chloride 500 ml @ 500 mls/hr 1X ONCE IV Last administered on 16:15; Start 05/20/17 at 16:15; Stop 05/20/17 at 17:14; Status DC Iohexol (Omnipaque 300 Mg/ml) 75 ml 1X ONCE IV Last administered on 17:32; Start 05/20/17 at 17:15; Stop 05/20/17 at 17:16; Status DC Info (Do NOT chart on this entry -- for MONITORING) 1 each PRN DAILY PRN MC SEE COMMENTS; Start 05/20/17 at 17:30; Stop 05/22/17 at 17:29; Status DC Morphine Sulfate 4 mg 1X ONCE IV Last administered on 05/20/17 18:01; Start 05/20/17 at 18:00; Stop 05/20/17 at 18:01; Status DC Piperacillin Sod/ Tazobactam Sod (Zosyn Per Pharmacy) 1 each PRN DAILY PRN MC SEE COMMENTS; Start 05/20/17 at 18:15 Sodium Chloride 1,000 ml @ 75 mls/hr 1X ONCE IV Last administered on 18:30; Start 05/20/17 at 18:30; Stop 05/21/17 at 07:49; Status DC Piperacillin Sod/ Tazobactam Sod (Zosyn) 3.375 gm 1X ONCE IVP Last administered on 05/20/17 18:29; Start 05/20/17 at 18:30; Stop 05/20/17 at 18 :31; Status DC Piperacillin Sod/ Tazobactam Sod (Zosyn) 3.375 gm Q6HRS IVP Last administered on 05/25/17 07:17; Start 05/21/17 at 00:00 Morphine Sulfate 2 mg PRN Q2HR PRN IV PAIN Last administered on 05/21/17 22: 00; Start 05/20/17 at 21:30; Stop 05/22/17 at 00:32; Status DC Ondansetron HCl (Zofran) 4 mg PRN Q6HRS PRN IV NAUSEA/VOMITING Last administered on 05/21/17 05:40; Start 05/20/17 at 21:30 Metronidazole 100 ml @ 100 mls/hr Q8HRS IV Last administered on 05/24/17 05: 56; Start 05/21/17 at 10:00; Stop 05/24/17 at 10:09; Status DC Famotidine (Pepcid Vial) 20 mg BID IVP Last administered on 05/25/17 09:15; Start 05/21/17 at 10:00 Potassium Chloride/Dextrose/ Sod Cl 1,000 ml @ 75 mls/hr [id number] IV Last administered on 05/25/17 07:17; Start 05/21/17 at 13:00 Morphine Sulfate 2 mg PRN Q2HR PRN IV PAIN Last administered on 05/22/17 21: 26; Start 05/22/17 at 00:45; Stop 05/24/17 at 13:35; Status DC Lactobacillus Rhamnosus (Culturelle) 1 cap BID PO Last administered on 09:16; Start 05/23/17 at 21:00 Vancomycin HCl 125 mg [id number] PO Last administered on 05/25/17t 09:16; Start 05/24/17 at 11:00 Morphine Sulfate 2 mg PRN Q2HR PRN IV PAIN; Start 05/24/17 at 13:45 Active Scripts Active Reported Percocet 5-325 Mg Tablet (Oxycodone/Acetaminophen) 1 Each Tablet 1-2 Tab PO PRN Q4HRS PRN Etodolac 400 Mg Tablet 1 Tab PO HS Trazodone Hcl 150 Mg Tablet 150 Mg PO HS Atorvastatin Calcium 40 Mg Tablet 40 Mg PO HS Mirtazapine 15 Mg Tablet 1 Tab PO QHS Donepezil Hcl 5 Mg Tablet 5 Mg PO HS Zetia (Ezetimibe) 10 Mg Tablet 10 Mg PO HS Losartan Potassium 50 Mg Tablet 50 Mg PO HS Vitals/I & O Vital Sign - Last 24 Hours 05/24/17 05/24/17 05/24/17 05/24/17 15:00 19:00 20:00 23:00 Temp 97.7 98.1 97.5 97.7 98.1 97.5 Pulse 68 89 89 Resp 18 16 16 B/P (MAP) 123/78 (93) 130/89 (103) 127/70 (89) Pulse Ox 95 96 95 O2 Delivery Room Air Room Air Room Air Room Air 05/25/17 05/25/17 03:00 08:30 Temp 97.9 97.5 97.9 97.5 Pulse 71 86 Resp 16 20 B/P (MAP) 118/63 (81) 146/86 (106) Pulse Ox 92 97 O2 Delivery Room Air Intake and Output 05/24/17 05/24/17 05/25/17 15:00 23:00 07:00 Intake Total 1590 ml Output Total 300 ml Balance 1290 ml DORA BLANCO III DO May 25, 2017 11:18
--- NOTE | 2017-05-25 15:00 | PDOC ---
SURGICAL PROGRESS NOTE Subjective Pt without new c/o, humberto PO Vital Signs Vital Signs Date Time Temp Pulse Resp B/P (MAP) Pulse Ox O2 Delivery O2 Flow Rate FiO2 05/25/17 11:15 96.8 117 20 130/92 (105) 97 Room Air 96.8 I&O Intake and Output 05/25/17 07:00 Intake Total 1590 ml Output Total 300 ml Balance 1290 ml Intake Oral 540 ml IV Total 1050 ml Output Urine Total 300 ml # Voids 6 General: Alert, Oriented X3, Cooperative, No acute distress Abdomen: Soft, Other (mild TTP LLQ) Labs Laboratory Tests Test 05/25/17 04:00 White Blood Count 7.5 x10^3/uL (4.0-11.0) Red Blood Count 4.85 x10^6/uL (3.50-5.40) Hemoglobin 13.2 g/dL (12.0-15.5) Hematocrit 39.9 % (36.0-47.0) Mean Corpuscular Volume 82 fL (79-100) Mean Corpuscular Hemoglobin 27 pg (25-35) Mean Corpuscular Hemoglobin Concent 33 g/dL (31-37) Red Cell Distribution Width 15.0 % (11.5-14.5) Platelet Count 263 x10^3/uL (140-400) Neutrophils (%) (Auto) 60 % (31-73) Lymphocytes (%) (Auto) 22 % (24-48) Monocytes (%) (Auto) 13 % (0-9) Eosinophils (%) (Auto) 5 % (0-3) Basophils (%) (Auto) 1 % (0-3) Neutrophils # (Auto) 4.5 x10^3uL (1.8-7.7) Lymphocytes # (Auto) 1.7 x10^3/uL (1.0-4.8) Monocytes # (Auto) 0.9 x10^3/uL (0.0-1.1) Eosinophils # (Auto) 0.4 x10^3/uL (0.0-0.7) Basophils # (Auto) 0.1 x10^3/uL (0.0-0.2) Sodium Level 142 mmol/L (136-145) Potassium Level 4.2 mmol/L (3.5-5.1) Chloride Level 109 mmol/L (98-107) Carbon Dioxide Level 24 mmol/L (21-32) Anion Gap 9 (6-14) Blood Urea Nitrogen 8 mg/dL (7-20) Creatinine 0.8 mg/dL (0.6-1.0) Estimated GFR (Cockcroft-Gault) 71.1 Glucose Level 104 mg/dL (70-99) Calcium Level 8.8 mg/dL (8.5-10.1) Laboratory Tests Test 05/25/17 04:00 White Blood Count 7.5 x10^3/uL (4.0-11.0) Red Blood Count 4.85 x10^6/uL (3.50-5.40) Hemoglobin 13.2 g/dL (12.0-15.5) Hematocrit 39.9 % (36.0-47.0) Mean Corpuscular Volume 82 fL (79-100) Mean Corpuscular Hemoglobin 27 pg (25-35) Mean Corpuscular Hemoglobin Concent 33 g/dL (31-37) Red Cell Distribution Width 15.0 % (11.5-14.5) Platelet Count 263 x10^3/uL (140-400) Neutrophils (%) (Auto) 60 % (31-73) Lymphocytes (%) (Auto) 22 % (24-48) Monocytes (%) (Auto) 13 % (0-9) Eosinophils (%) (Auto) 5 % (0-3) Basophils (%) (Auto) 1 % (0-3) Neutrophils # (Auto) 4.5 x10^3uL (1.8-7.7) Lymphocytes # (Auto) 1.7 x10^3/uL (1.0-4.8) Monocytes # (Auto) 0.9 x10^3/uL (0.0-1.1) Eosinophils # (Auto) 0.4 x10^3/uL (0.0-0.7) Basophils # (Auto) 0.1 x10^3/uL (0.0-0.2) Sodium Level 142 mmol/L (136-145) Potassium Level 4.2 mmol/L (3.5-5.1) Chloride Level 109 mmol/L (98-107) Carbon Dioxide Level 24 mmol/L (21-32) Anion Gap 9 (6-14) Blood Urea Nitrogen 8 mg/dL (7-20) Creatinine 0.8 mg/dL (0.6-1.0) Estimated GFR (Cockcroft-Gault) 71.1 Glucose Level 104 mg/dL (70-99) Calcium Level 8.8 mg/dL (8.5-10.1) Problem List Problems Medical Problems: (1) Abdominal abscess Status: Acute (2) Perforation of sigmoid colon due to diverticulitis Status: Acute Assessment/Plan diverticulitis cont with supportive care no surgical plans Problems: MARK BATRES MD May 25, 2017 15:00
[2017-05-25 16:47] VITALS: BP 143/85
--- NOTE | 2017-05-25 17:33 | PDOC ---
Infectious Disease Note Subjective Subjective Feels ready to go home Tolerating po well Denies pain Stools formed ROS ROS GEN: Denies fevers, chills, sweats CV: Denies chest pain RESP: Denies shortness of air, cough GI: Denies n/v Vital Sign Vital Signs Vital Signs Date Time Temp Pulse Resp B/P (MAP) Pulse Ox O2 Delivery O2 Flow Rate FiO2 05/25/17 16:47 96.7 79 20 143/85 (104) 95 Room Air 96.7 Physical Exam PHYSICAL EXAM GENERAL: Propped up in bed, NAD LUNGS: Clear HEART: S1S2, no gallop, no murmur ABD: Soft, NT, BS active EXT: No edema, no cyanosis VICE PRESIDENT RISK MANAGEMENT: Alert, oriented x 3, no focal neurologic deficit SKIN: No rash IV: ok Labs Lab Laboratory Tests Test 05/25/17 04:00 05/25/17 15:45 White Blood Count 7.5 x10^3/uL (4.0-11.0) Red Blood Count 4.85 x10^6/uL (3.50-5.40) Hemoglobin 13.2 g/dL (12.0-15.5) Hematocrit 39.9 % (36.0-47.0) Mean Corpuscular Volume 82 fL (79-100) Mean Corpuscular Hemoglobin 27 pg (25-35) Mean Corpuscular Hemoglobin Concent 33 g/dL (31-37) Red Cell Distribution Width 15.0 % (11.5-14.5) Platelet Count 263 x10^3/uL (140-400) Neutrophils (%) (Auto) 60 % (31-73) Lymphocytes (%) (Auto) 22 % (24-48) Monocytes (%) (Auto) 13 % (0-9) Eosinophils (%) (Auto) 5 % (0-3) Basophils (%) (Auto) 1 % (0-3) Neutrophils # (Auto) 4.5 x10^3uL (1.8-7.7) Lymphocytes # (Auto) 1.7 x10^3/uL (1.0-4.8) Monocytes # (Auto) 0.9 x10^3/uL (0.0-1.1) Eosinophils # (Auto) 0.4 x10^3/uL (0.0-0.7) Basophils # (Auto) 0.1 x10^3/uL (0.0-0.2) Sodium Level 142 mmol/L (136-145) Potassium Level 4.2 mmol/L (3.5-5.1) Chloride Level 109 mmol/L (98-107) Carbon Dioxide Level 24 mmol/L (21-32) Anion Gap 9 (6-14) Blood Urea Nitrogen 8 mg/dL (7-20) Creatinine 0.8 mg/dL (0.6-1.0) Estimated GFR (Cockcroft-Gault) 71.1 Glucose Level 104 mg/dL (70-99) Calcium Level 8.8 mg/dL (8.5-10.1) C-Reactive Protein, Quantitative 69.8 mg/L (0-3.3) Objective Assessment Diverticulitis with perforation Fever, resolved Leukocytosis, resolved Abdominal pain, better C diff, 05/23 Plan Plan of Care Hold discharge and check CRP per Dr. Humera Card and po vanc Anticipated discharge home tomorrow supportive care D/w daughter Pt seen and examined. Chart reviewed in detail. Case discussed with [employer]. Agree with above plan. LINDSAY GALEAS APRN May 25, 2017 17:33 KEITH BYRD MD May 25, 2017 18:11
[2017-05-25] MEDS ORDERED: ALPRAZolam 0.25 MG TABLET PO PRN (18:30)
[2017-05-25 19:00] VITALS: BP 145/90
[2017-05-25] MEDS: FAMOTIDINE 20 MG TABLET. PO SCH (20:49)
[2017-05-25 23:00] VITALS: BP 129/74
[2017-05-26] MEDS: PIPERACILLIN/TAZO IV Push 3.375 GM VIAL. IVP SCH ×3 (01:01→12:00)
[2017-05-26 03:15] VITALS: BP 138/77
[2017-05-26 07:00] VITALS: BP 137/87
[2017-05-26] MEDS: VANCOMYCIN 125 MG/2.5 ML ORAL SOLUTION. PO SCH ×2 (08:54→12:14)
[2017-05-26] MEDS: FAMOTIDINE 20 MG TABLET. PO SCH (08:55)
--- NOTE | 2017-05-26 10:08 | PDOC ---
G I PROGRESS NOTE Subjective No complaints. Tolerating solid food. Physical Exam Lungs clear. RRR Abdomen soft, not distended. Nil tenderness LLQ. Review of Relevant I have reviewed the following items jocelyn (where applicable) has been applied. Labs Laboratory Tests Test 05/25/17 04:00 05/25/17 15:45 White Blood Count 7.5 x10^3/uL (4.0-11.0) Red Blood Count 4.85 x10^6/uL (3.50-5.40) Hemoglobin 13.2 g/dL (12.0-15.5) Hematocrit 39.9 % (36.0-47.0) Mean Corpuscular Volume 82 fL (79-100) Mean Corpuscular Hemoglobin 27 pg (25-35) Mean Corpuscular Hemoglobin Concent 33 g/dL (31-37) Red Cell Distribution Width 15.0 % (11.5-14.5) Platelet Count 263 x10^3/uL (140-400) Neutrophils (%) (Auto) 60 % (31-73) Lymphocytes (%) (Auto) 22 % (24-48) Monocytes (%) (Auto) 13 % (0-9) Eosinophils (%) (Auto) 5 % (0-3) Basophils (%) (Auto) 1 % (0-3) Neutrophils # (Auto) 4.5 x10^3uL (1.8-7.7) Lymphocytes # (Auto) 1.7 x10^3/uL (1.0-4.8) Monocytes # (Auto) 0.9 x10^3/uL (0.0-1.1) Eosinophils # (Auto) 0.4 x10^3/uL (0.0-0.7) Basophils # (Auto) 0.1 x10^3/uL (0.0-0.2) Sodium Level 142 mmol/L (136-145) Potassium Level 4.2 mmol/L (3.5-5.1) Chloride Level 109 mmol/L (98-107) Carbon Dioxide Level 24 mmol/L (21-32) Anion Gap 9 (6-14) Blood Urea Nitrogen 8 mg/dL (7-20) Creatinine 0.8 mg/dL (0.6-1.0) Estimated GFR (Cockcroft-Gault) 71.1 Glucose Level 104 mg/dL (70-99) Calcium Level 8.8 mg/dL (8.5-10.1) C-Reactive Protein, Quantitative 69.8 mg/L (0-3.3) Laboratory Tests Test 05/25/17 15:45 C-Reactive Protein, Quantitative 69.8 mg/L (0-3.3) Medications Current Medications Fentanyl Citrate (Fentanyl 2ml Vial) 50 mcg 1X ONCE IV Last administered on 16:24; Start 05/20/17 at 16:15; Stop 05/20/17 at 16:16; Status DC Sodium Chloride 500 ml @ 500 mls/hr 1X ONCE IV Last administered on 16:15; Start 05/20/17 at 16:15; Stop 05/20/17 at 17:14; Status DC Iohexol (Omnipaque 300 Mg/ml) 75 ml 1X ONCE IV Last administered on 17:32; Start 05/20/17 at 17:15; Stop 05/20/17 at 17:16; Status DC Info (Do NOT chart on this entry -- for MONITORING) 1 each PRN DAILY PRN MC SEE COMMENTS; Start 05/20/17 at 17:30; Stop 05/22/17 at 17:29; Status DC Morphine Sulfate 4 mg 1X ONCE IV Last administered on 05/20/17 18:01; Start 05/20/17 at 18:00; Stop 05/20/17 at 18:01; Status DC Piperacillin Sod/ Tazobactam Sod (Zosyn Per Pharmacy) 1 each PRN DAILY PRN MC SEE COMMENTS; Start 05/20/17 at 18:15 Sodium Chloride 1,000 ml @ 75 mls/hr 1X ONCE IV Last administered on 18:30; Start 05/20/17 at 18:30; Stop 05/21/17 at 07:49; Status DC Piperacillin Sod/ Tazobactam Sod (Zosyn) 3.375 gm 1X ONCE IVP Last administered on 05/20/17 18:29; Start 05/20/17 at 18:30; Stop 05/20/17 at 18 :31; Status DC Piperacillin Sod/ Tazobactam Sod (Zosyn) 3.375 gm Q6HRS IVP Last administered on 05/26/17 06:45; Start 05/21/17 at 00:00 Morphine Sulfate 2 mg PRN Q2HR PRN IV PAIN Last administered on 05/21/17 22: 00; Start 05/20/17 at 21:30; Stop 05/22/17 at 00:32; Status DC Ondansetron HCl (Zofran) 4 mg PRN Q6HRS PRN IV NAUSEA/VOMITING Last administered on 05/21/17 05:40; Start 05/20/17 at 21:30 Metronidazole 100 ml @ 100 mls/hr Q8HRS IV Last administered on 05/24/17 05: 56; Start 05/21/17 at 10:00; Stop 05/24/17 at 10:09; Status DC Famotidine (Pepcid Vial) 20 mg BID IVP Last administered on 05/25/17 09:15; Start 05/21/17 at 10:00; Stop 05/25/17 at 15:18; Status DC Potassium Chloride/Dextrose/ Sod Cl 1,000 ml @ 75 mls/hr [id number] IV Last administered on 05/25/17 20:48; Start 05/21/17 at 13:00 Morphine Sulfate 2 mg PRN Q2HR PRN IV PAIN Last administered on 05/22/17 21: 26; Start 05/22/17 at 00:45; Stop 05/24/17 at 13:35; Status DC Lactobacillus Rhamnosus (Culturelle) 1 cap BID PO Last administered on 20:48; Start 05/23/17 at 21:00 Vancomycin HCl 125 mg [id number] PO Last administered on 05/26/17 08:54; Start 05/24/17 at 11:00 Morphine Sulfate 2 mg PRN Q2HR PRN IV PAIN; Start 05/24/17 at 13:45 Famotidine (Pepcid) 20 mg BID PO Last administered on 05/26/17 08:55; Start 05/25/17 at 21:00 Alprazolam (Xanax) 0.25 mg PRN QHS PRN PO ANXIETY / AGITATION; Start 05/25/17 at 18:30 Active Scripts Active Reported Percocet 5-325 Mg Tablet (Oxycodone/Acetaminophen) 1 Each Tablet 1-2 Tab PO PRN Q4HRS PRN Etodolac 400 Mg Tablet 1 Tab PO HS Trazodone Hcl 150 Mg Tablet 150 Mg PO HS Atorvastatin Calcium 40 Mg Tablet 40 Mg PO HS Mirtazapine 15 Mg Tablet 1 Tab PO QHS Donepezil Hcl 5 Mg Tablet 5 Mg PO HS Zetia (Ezetimibe) 10 Mg Tablet 10 Mg PO HS Losartan Potassium 50 Mg Tablet 50 Mg PO HS Vitals/I & O Vital Sign - Last 24 Hours 05/25/17 05/25/17 05/25/17 05/25/17 11:15 16:47 19:00 20:00 Temp 96.8 96.7 96.6 96.8 96.7 96.6 Pulse 117 79 106 Resp 20 20 20 B/P (MAP) 130/92 (105) 143/85 (104) 145/90 (108) Pulse Ox 97 95 95 O2 Delivery Room Air Room Air Room Air Room Air 05/25/17 05/26/17 05/26/17 05/26/17 23:00 03:15 07:00 08:00 Temp 97.5 98.1 97.5 98.1 Pulse 69 77 83 Resp 20 20 18 B/P (MAP) 129/74 (92) 138/77 (97) 137/87 (104) Pulse Ox 96 95 96 O2 Delivery Room Air Room Air Room Air Room Air Intake and Output 05/25/17 05/25/17 05/26/17 15:00 23:00 07:00 Intake Total 440 ml 820 ml 120 ml Output Total 800 ml Balance 440 ml 820 ml -680 ml Problem List Problems Medical Problems: (1) Abdominal abscess Status: Acute (2) Perforation of sigmoid colon due to diverticulitis Status: Acute Assessment Diverticulitis, improved. Plan of Care: Continue current Tx, Mgmt Plan of Care Note Home from out standpoint when cleared by surgery. Should have colonoscopy, but not for 6-8 weeks. SEKOU PERRY MD May 26, 2017 10:08
[2017-05-26 11:00] VITALS: BP 133/86
--- NOTE | 2017-05-26 11:11 | PDOC ---
SURGICAL PROGRESS NOTE Subjective no new complaints anxious to get IV out so she can get dressed and go home Vital Signs Vital Signs Date Time Temp Pulse Resp B/P (MAP) Pulse Ox O2 Delivery O2 Flow Rate FiO2 05/26/17 08:00 Room Air 05/26/17 07:00 83 18 137/87 (104) 96 05/26/17 03:15 98.1 98.1 I&O Intake and Output 05/26/17 07:00 Intake Total 1380 ml Output Total 800 ml Balance 580 ml Intake Oral 1380 ml Output Urine Total 800 ml # Voids 2 # Bowel Movements 2 PATIENT HAS A COURTNEY: No General: Alert, Oriented X3, Cooperative, No acute distress Abdomen: Soft, No tenderness Labs Laboratory Tests Test 05/25/17 04:00 05/25/17 15:45 White Blood Count 7.5 x10^3/uL (4.0-11.0) Red Blood Count 4.85 x10^6/uL (3.50-5.40) Hemoglobin 13.2 g/dL (12.0-15.5) Hematocrit 39.9 % (36.0-47.0) Mean Corpuscular Volume 82 fL (79-100) Mean Corpuscular Hemoglobin 27 pg (25-35) Mean Corpuscular Hemoglobin Concent 33 g/dL (31-37) Red Cell Distribution Width 15.0 % (11.5-14.5) Platelet Count 263 x10^3/uL (140-400) Neutrophils (%) (Auto) 60 % (31-73) Lymphocytes (%) (Auto) 22 % (24-48) Monocytes (%) (Auto) 13 % (0-9) Eosinophils (%) (Auto) 5 % (0-3) Basophils (%) (Auto) 1 % (0-3) Neutrophils # (Auto) 4.5 x10^3uL (1.8-7.7) Lymphocytes # (Auto) 1.7 x10^3/uL (1.0-4.8) Monocytes # (Auto) 0.9 x10^3/uL (0.0-1.1) Eosinophils # (Auto) 0.4 x10^3/uL (0.0-0.7) Basophils # (Auto) 0.1 x10^3/uL (0.0-0.2) Sodium Level 142 mmol/L (136-145) Potassium Level 4.2 mmol/L (3.5-5.1) Chloride Level 109 mmol/L (98-107) Carbon Dioxide Level 24 mmol/L (21-32) Anion Gap 9 (6-14) Blood Urea Nitrogen 8 mg/dL (7-20) Creatinine 0.8 mg/dL (0.6-1.0) Estimated GFR (Cockcroft-Gault) 71.1 Glucose Level 104 mg/dL (70-99) Calcium Level 8.8 mg/dL (8.5-10.1) C-Reactive Protein, Quantitative 69.8 mg/L (0-3.3) Laboratory Tests Test 05/25/17 15:45 C-Reactive Protein, Quantitative 69.8 mg/L (0-3.3) Problem List Problems Medical Problems: (1) Abdominal abscess Status: Acute (2) Perforation of sigmoid colon due to diverticulitis Status: Acute Assessment/Plan diverticulitis, improved home today f/u with Dr Cortes in two weeks po abx per ID Problems: NOLVIA FELIPE MD May 26, 2017 11:11
[2017-05-26] MEDS: LACTOBACILLUS RHAMNOSUS GG 1 CAPSULE. PO SCH (12:16)
--- NOTE | 2017-05-26 13:50 | PDOC ---
PROGRESS NOTES Chief Complaint Chief Complaint 1. Perforated diverticulitis, small , improving with conservative mx 2. C diff diarrhea, 1st epsisode 3. HTN, asthma, HLD, memory loss, depression/anxiety, gastric bypass ("stapling "), partial hysterectomy, left knee replacement, bilateral rotator cuff repair History of Present Illness History of Present Illness Pt Eating Well AAOx3, NAD Pt Anxious to leave CRP elevated 69.8 DW RN DC if agreeable with ID Vanycomycin PO per ID C diff positive Vitals Vitals Vital Signs Date Time Temp Pulse Resp B/P (MAP) Pulse Ox O2 Delivery O2 Flow Rate FiO2 05/26/17 11:00 98.1 67 18 133/86 (102) 96 Room Air 98.1 Physical Exam General: Alert, Oriented X3, Cooperative, No acute distress Heart: Regular rate, Normal S1, No murmurs Lungs: Clear, Other (No RRW) Abdomen: Soft, No tenderness Extremities: No clubbing, No cyanosis, No edema Skin: No rashes, No breakdown Labs LABS Laboratory Tests Test 05/25/17 15:45 C-Reactive Protein, Quantitative 69.8 mg/L (0-3.3) Review of Systems Review of Systems General: No Hunger, Fatigue CV: No Chest Pain, Palpitations Assessment and Plan Assessmemt and Plan Assessment: Abdominal abscess Perforated diverticulitis C diff diarrhea, 1st epsisode HTN, Asthma, HLD Memory loss Depression Anxiety Gastric bypass ("stapling") Partial Hysterectomy Left Knee Replacement Bilateral Rotator Cuff repair Plan: DC probable if agreeable with ID Continue Antibiotics Continue Soft Diet Continue PT/OT Continue Home Meds Recheck Labs Problems: Comment Review of Relevant I have reviewed the following items jocelyn (where applicable) has been applied. Labs Laboratory Tests Test 05/25/17 04:00 05/25/17 15:45 White Blood Count 7.5 x10^3/uL (4.0-11.0) Red Blood Count 4.85 x10^6/uL (3.50-5.40) Hemoglobin 13.2 g/dL (12.0-15.5) Hematocrit 39.9 % (36.0-47.0) Mean Corpuscular Volume 82 fL (79-100) Mean Corpuscular Hemoglobin 27 pg (25-35) Mean Corpuscular Hemoglobin Concent 33 g/dL (31-37) Red Cell Distribution Width 15.0 % (11.5-14.5) Platelet Count 263 x10^3/uL (140-400) Neutrophils (%) (Auto) 60 % (31-73) Lymphocytes (%) (Auto) 22 % (24-48) Monocytes (%) (Auto) 13 % (0-9) Eosinophils (%) (Auto) 5 % (0-3) Basophils (%) (Auto) 1 % (0-3) Neutrophils # (Auto) 4.5 x10^3uL (1.8-7.7) Lymphocytes # (Auto) 1.7 x10^3/uL (1.0-4.8) Monocytes # (Auto) 0.9 x10^3/uL (0.0-1.1) Eosinophils # (Auto) 0.4 x10^3/uL (0.0-0.7) Basophils # (Auto) 0.1 x10^3/uL (0.0-0.2) Sodium Level 142 mmol/L (136-145) Potassium Level 4.2 mmol/L (3.5-5.1) Chloride Level 109 mmol/L (98-107) Carbon Dioxide Level 24 mmol/L (21-32) Anion Gap 9 (6-14) Blood Urea Nitrogen 8 mg/dL (7-20) Creatinine 0.8 mg/dL (0.6-1.0) Estimated GFR (Cockcroft-Gault) 71.1 Glucose Level 104 mg/dL (70-99) Calcium Level 8.8 mg/dL (8.5-10.1) C-Reactive Protein, Quantitative 69.8 mg/L (0-3.3) Laboratory Tests Test 05/25/17 15:45 C-Reactive Protein, Quantitative 69.8 mg/L (0-3.3) Medications Current Medications Fentanyl Citrate (Fentanyl 2ml Vial) 50 mcg 1X ONCE IV Last administered on 16:24; Start 05/20/17 at 16:15; Stop 05/20/17 at 16:16; Status DC Sodium Chloride 500 ml @ 500 mls/hr 1X ONCE IV Last administered on 16:15; Start 05/20/17 at 16:15; Stop 05/20/17 at 17:14; Status DC Iohexol (Omnipaque 300 Mg/ml) 75 ml 1X ONCE IV Last administered on 17:32; Start 05/20/17 at 17:15; Stop 05/20/17 at 17:16; Status DC Info (Do NOT chart on this entry -- for MONITORING) 1 each PRN DAILY PRN MC SEE COMMENTS; Start 05/20/17 at 17:30; Stop 05/22/17 at 17:29; Status DC Morphine Sulfate 4 mg 1X ONCE IV Last administered on 05/20/17 18:01; Start 05/20/17 at 18:00; Stop 05/20/17 at 18:01; Status DC Piperacillin Sod/ Tazobactam Sod (Zosyn Per Pharmacy) 1 each PRN DAILY PRN MC SEE COMMENTS; Start 05/20/17 at 18:15 Sodium Chloride 1,000 ml @ 75 mls/hr 1X ONCE IV Last administered on 18:30; Start 05/20/17 at 18:30; Stop 05/21/17 at 07:49; Status DC Piperacillin Sod/ Tazobactam Sod (Zosyn) 3.375 gm 1X ONCE IVP Last administered on 05/20/17 18:29; Start 05/20/17 at 18:30; Stop 05/20/17 at 18 :31; Status DC Piperacillin Sod/ Tazobactam Sod (Zosyn) 3.375 gm Q6HRS IVP Last administered on 05/26/17 06:45; Start 05/21/17 at 00:00 Morphine Sulfate 2 mg PRN Q2HR PRN IV PAIN Last administered on 05/21/17 22: 00; Start 05/20/17 at 21:30; Stop 05/22/17 at 00:32; Status DC Ondansetron HCl (Zofran) 4 mg PRN Q6HRS PRN IV NAUSEA/VOMITING Last administered on 05/21/17 05:40; Start 05/20/17 at 21:30 Metronidazole 100 ml @ 100 mls/hr Q8HRS IV Last administered on 05/24/17 05: 56; Start 05/21/17 at 10:00; Stop 05/24/17 at 10:09; Status DC Famotidine (Pepcid Vial) 20 mg BID IVP Last administered on 05/25/17 09:15; Start 05/21/17 at 10:00; Stop 05/25/17 at 15:18; Status DC Potassium Chloride/Dextrose/ Sod Cl 1,000 ml @ 75 mls/hr [id number] IV Last administered on 05/25/17 20:48; Start 05/21/17 at 13:00 Morphine Sulfate 2 mg PRN Q2HR PRN IV PAIN Last administered on 05/22/17 21: 26; Start 05/22/17 at 00:45; Stop 05/24/17 at 13:35; Status DC Lactobacillus Rhamnosus (Culturelle) 1 cap BID PO Last administered on 12:16; Start 05/23/17 at 21:00 Vancomycin HCl 125 mg [id number] PO Last administered on 05/26/17 12:14; Start 05/24/17 at 11:00 Morphine Sulfate 2 mg PRN Q2HR PRN IV PAIN; Start 05/24/17 at 13:45 Famotidine (Pepcid) 20 mg BID PO Last administered on 05/26/17 08:55; Start 05/25/17 at 21:00 Alprazolam (Xanax) 0.25 mg PRN QHS PRN PO ANXIETY / AGITATION; Start 05/25/17 at 18:30 Active Scripts Active Reported Percocet 5-325 Mg Tablet (Oxycodone/Acetaminophen) 1 Each Tablet 1-2 Tab PO PRN Q4HRS PRN Etodolac 400 Mg Tablet 1 Tab PO HS Trazodone Hcl 150 Mg Tablet 150 Mg PO HS Atorvastatin Calcium 40 Mg Tablet 40 Mg PO HS Mirtazapine 15 Mg Tablet 1 Tab PO QHS Donepezil Hcl 5 Mg Tablet 5 Mg PO HS Zetia (Ezetimibe) 10 Mg Tablet 10 Mg PO HS Losartan Potassium 50 Mg Tablet 50 Mg PO HS Vitals/I & O Vital Sign - Last 24 Hours 05/25/17 05/25/17 05/25/17 05/25/17 16:47 19:00 20:00 23:00 Temp 96.7 96.6 97.5 96.7 96.6 97.5 Pulse 79 106 69 Resp 20 20 20 B/P (MAP) 143/85 (104) 145/90 (108) 129/74 (92) Pulse Ox 95 95 96 O2 Delivery Room Air Room Air Room Air Room Air 05/26/17 05/26/17 05/26/17 05/26/17 03:15 07:00 08:00 11:00 Temp 98.1 98.1 98.1 98.1 Pulse 77 83 67 Resp 20 18 18 B/P (MAP) 138/77 (97) 137/87 (104) 133/86 (102) Pulse Ox 95 96 96 O2 Delivery Room Air Room Air Room Air Room Air Intake and Output 05/25/17 05/25/17 05/26/17 15:00 23:00 07:00 Intake Total 440 ml 820 ml 120 ml Output Total 800 ml Balance 440 ml 820 ml -680 ml DORA BLANCO III DO May 26, 2017 13:50
== END 2017-05-26 12:52 | disposition home or self-care (01) | DRG 392 ==
LOC: ER 15:33 → 4 NORTH 18:16
PROVIDERS: ADMIT Internal Medicine; ATTEND Internal Medicine
DX: K57.20 Diverticulitis of large intestine with perforation and abscess without bleeding (principal); A04.72 Enterocolitis due to Clostridium difficile, not specified as recurrent; F03.90 Unspecified dementia, unspecified severity, without behavioral disturbance, psychotic disturbance, mood disturbance, and anxiety; Z68.35 Body mass index [BMI] 35.0-35.9, adult; E66.9 Obesity, unspecified; E78.00 Pure hypercholesterolemia, unspecified; E78.5 Hyperlipidemia, unspecified; F32.9 Major depressive disorder, single episode, unspecified; F41.9 Anxiety disorder, unspecified; I10 Essential (primary) hypertension; J45.909 Unspecified asthma, uncomplicated; K21.9 Gastro-esophageal reflux disease without esophagitis; Z80.9 Family history of malignant neoplasm, unspecified; Z82.49 Family history of ischemic heart disease and other diseases of the circulatory system; Z83.3 Family history of diabetes mellitus; Z90.710 Acquired absence of both cervix and uterus; Z96.653 Presence of artificial knee joint, bilateral; Z98.84 Bariatric surgery status; M19.90 Unspecified osteoarthritis, unspecified site; Z88.8 Allergy status to other drugs, medicaments and biological substances; Z90.711 Acquired absence of uterus with remaining cervical stump
CPT/HCPCS: 36415; 71010; 74177; 80047; 80048; 80053; 80076; 81001; 83605; 83690; 84484; 85025; 86140; 87324; 93005; 96361; 96374; J2270; J2405; J2543; J3010; J3490; J7030; J7040; Q9967; S0028; 99291-25

== ENCOUNTER → 2017-06-17 | Outpatient (CLI) | payer BC, MEDICAID ==
[2017-05-26 11:00] VITALS: BP 133/86
[~2017-06-17] MED LIST changes: +IOHEXOL 240 MG/ML 50ML VIAL. PO ONE; +IOHEXOL 300 MG/ML 100ML VIAL. IV ONE; +OXYC-323 PO
[2017-06-17 08:34] LABS: BASO # 0.1 x10^3/uL (0.0-0.2); BASO % 2 % (0-3); EOS % 4 % (0-3); HEMATOCRIT 43.3 % (36.0-47.0); HEMOGLOBIN 14.2 g/dL (12.0-15.5); LYMPH # 1.7 x10^3/uL (1.0-4.8); LYMPH % 30 % (24-48); MEAN CORPUSCULAR HEMOGLOBIN 27 pg (25-35); MEAN CORPUSCULAR HGB CONC 33 g/dL (31-37); MEAN CORPUSCULAR VOLUME 83 fL (79-100); MONO % 9 % (0-9); NEUT % 55 % (31-73); PLATELET COUNT 255 x10^3/uL (140-400); RED CELL DISTRIBUTION WIDTH 15.6 % (11.5-14.5); WHITE BLOOD COUNT 5.8 x10^3/uL (4.0-11.0)
[2017-06-17 08:36] LABS: ALBUMIN 3.6 g/dL (3.4-5.0); ALBUMIN/GLOBULIN RATIO 0.9 (1.0-1.7); GFR 54.8; POTASSIUM 4.4 mmol/L (3.5-5.1); TOTAL BILIRUBIN 0.5 mg/dL (0.2-1.0); TOTAL PROTEIN 7.7 g/dL (6.4-8.2)
--- NOTE | 2017-06-17 13:39 | RAD ---
Indication: Follow-up for diverticulitis Technique: CT abdomen and pelvis with 60 mL of Omnipaque 300 with multi planar reformats. 50 mL of Omnipaque 240 was given by mouth. Comparison: CT from 05/20/2017 Findings: Heart is normal in size. Coronary artery disease. No pericardial or pleural effusion. Stable subpleural scarring noted in the lung bases. Liver is within normal limits. Calcified granulomas in the spleen suggesting healed granulomatous disease. Gallstones noted. No pericholecystic fluid or gallbladder wall thickening. Pancreas within normal limits. Adrenal glands show no nodularity. No hydronephrosis or nephrolithiasis. No retroperitoneal or pelvic adenopathy. No bowel obstruction. Mild pericolonic inflammatory changes seen in the proximal sigmoid colon not significantly changed compared to previous study from 05/26 2017. Postsurgical changes are seen in the stomach. Multiple metallic densities are seen in the left upper quadrant likely surgical gregorio or embolization coils. Bladder is within normal limits. Uterus is surgically absent. No solid adnexal lesions. No free pelvic fluid. Bilateral ovaries are visualized. Incidental note made of retroaortic left renal vein. No suspicious bony lesions. Impression: 1. Stable diverticulitis of the proximal sigmoid colon. No evidence of perforation or abscess formation. 2. Cholelithiasis without acute cholecystitis. PQRS Compliance Statement: One or more of the following individualized dose reduction techniques were utilized for this examination: 1. Automated exposure control 2. Adjustment of the mA and/or kV according to patient size 3. Use of iterative reconstruction technique
== END | disposition home or self-care (01) ==
LOC: CT 07:55
PROVIDERS: ATTEND Internal Medicine Infectious Disease
DX: K57.92 Diverticulitis of intestine, part unspecified, without perforation or abscess without bleeding (principal); K80.20 Calculus of gallbladder without cholecystitis without obstruction; I25.10 Atherosclerotic heart disease of native coronary artery without angina pectoris
CPT/HCPCS: 36415; 74177; 80053; 85025; Q9966; Q9967

== ENCOUNTER 2017-07-23 14:53 | Outpatient (CLI) | payer BC, MEDICAID | END 2017-08-13 | disposition home or self-care (01) | LOC: MAMMO 14:53 | DX: Z12.31 Encounter for screening mammogram for malignant neoplasm of breast (principal) | CPT/HCPCS: 77063; 77067 ==

== ENCOUNTER 2018-03-21 20:20 | Emergency (ER) | payer BC, MEDICAID ==
[~2018-03-21] VITALS: Ht 165.1 cm; Wt 97.5 kg
[~2018-03-21 20:20] MED LIST changes: -IOHEXOL 240 MG/ML 50ML VIAL. PO ONE; -IOHEXOL 300 MG/ML 100ML VIAL. IV ONE; -LOSA50TA6 PO; +LOSA50TA7 PO
[2018-03-21 20:58] VITALS: BP 121/92
[2018-03-21 21:29] LABS: BILIRUBIN,URINE MODERATE (NEG); CLARITY,URINE CLEAR; COLOR,URINE YELLOW; NITRITE,URINE NEGATIVE (NEG); PH,URINE 5.5; PROTEIN,URINE NEGATIVE (NEG-TRACE); UROBILINOGEN,URINE 0.2 mg/dL (0.2 mg/dL)
[2018-03-21 21:36] LABS: BACTERIA,URINE MODERATE /HPF (0-FEW); RBC,URINE 0 /HPF (0-2); SQUAMOUS EPITHELIAL CELL,UR FEW /LPF; WBC,URINE >40 /HPF (0-4)
[2018-03-21 21:58] LABS: BASO # 0.2 x10^3/uL (0.0-0.2); BASO % 2 % (0-3); EOS # 0.5 x10^3/uL (0.0-0.7); EOS % 6 % (0-3); HEMATOCRIT 40.7 % (36.0-47.0); LYMPH # 2.1 x10^3/uL (1.0-4.8); LYMPH % 23 % (24-48); MEAN CORPUSCULAR HEMOGLOBIN 29 pg (25-35); MEAN CORPUSCULAR HGB CONC 34 g/dL (31-37); MEAN CORPUSCULAR VOLUME 85 fL (79-100); MONO # 1.2 x10^3/uL (0.0-1.1); MONO % 13 % (0-9); NEUT # 5.3 x10^3uL (1.8-7.7); NEUT % 57 % (31-73); PLATELET COUNT 203 x10^3/uL (140-400); WHITE BLOOD COUNT 9.3 x10^3/uL (4.0-11.0)
[2018-03-21] MEDS ORDERED: METOCLOPRAMIDE HCL 10 MG/2 ML VIAL. IV ONE (22:00)
[2018-03-21] MEDS ORDERED: IV NORMAL SALINE 1000ML BAG 1,000 ML IV ONE (22:00)
[2018-03-21 22:12] LABS: CALCIUM 9.5 mg/dL (8.5-10.1); GFR 54.8; POTASSIUM 4.1 mmol/L (3.5-5.1)
[2018-03-21 22:19] LABS: ALBUMIN 3.6 g/dL (3.4-5.0); ALBUMIN/GLOBULIN RATIO 1.1 (1.0-1.7); TOTAL BILIRUBIN 0.4 mg/dL (0.2-1.0)
--- NOTE | 2018-03-21 22:55 | RAD ---
Acute abdominal series to include an AP chest radiograph 03/21/2018 Clinical History: Low abdominal pain with cough. An AP digital radiograph of the chest was obtained. Supine and erect AP digital radiographs of the abdomen/pelvis were obtained. No previous studies are available for comparison. The cardiac silhouette is normal in size. The thoracic aorta is mildly tortuous. Surgical clips are seen within the left upper quadrant abdomen. Calcifications are seen within the left upper quadrant of the abdomen. No acute pulmonary infiltrate is seen. No pleural effusion or pneumothorax is noted. The abdominal bowel gas pattern is nonobstructive. Calcifications are seen within the pelvis consistent with phleboliths. Degenerative changes are seen involving the thoracic and lumbar spine and both hips. IMPRESSION: Nonobstructive bowel gas pattern. Electronically signed by: Xavi Desouza MD (03/21/2018 10:52 PM) [facility]
[2018-03-21] MEDS ORDERED: IOHEXOL 300 MG/ML 100ML VIAL. IV ONE (23:00)
--- NOTE | 2018-03-21 23:00 | PHYS DOC ---
Past Medical History Past Medical History: Asthma, Dementia, High Cholesterol, Hypertension Additional Past Medical Histor: "HOLE IN MY COLON" Past Surgical History: Hysterectomy, Knee Replacement, Other Additional Past Surgical Histo: L KNEE REPLACEMENT, BILATERAL ROTATOR CUFF SX Alcohol Use: None Drug Use: None Adult General Chief Complaint Chief Complaint: ABDOMINAL PAIN HPI HPI Patient is a 72 year old female who is brought to the ER tonight by her daughter. She is unhappy that daughter brought her in and doesn't feel she needs to be here. Per report she has had some intermittent abd pain since yesterday and today has had nausea and vomiting since attempting breakfast. She reports a history of constipation and hasn't gone for a couple days. Pt denies fevers, but does report a mild cough and dizziness. Review of Systems Review of Systems Constitutional: Denies fever or chills HENT: Denies nasal congestion or sore throat Respiratory: Denies shortness of breath. Reports mild nonproductive cough. Cardiovascular: Denies chest pain. GI: Reports abdominal pain and constipation. Reports nausea and vomiting. : Denies dysuria or hematuria Musculoskeletal: Denies back pain or joint pain Integument: Denies rash or skin lesions Neurologic: Denies headache, focal weakness or sensory changes. Reports dizziness. All other systems were reviewed and found to be within normal limits, except as documented in this note. Current Medications Current Medications Current Medications Medications (Trade) Dose Ordered Sig/Ginger Start Time Stop Time Status Last Admin Dose Admin Ceftriaxone Sodium 50 ml @ 100 mls/hr 1X ONCE 03/21/18 22:15 03/21/18 22:44 DC 03/21/18 23:24 100 MLS/HR Info (CONTRAST GIVEN -- Rx MONITORING) 1 each PRN DAILY PRN 03/21/18 23:15 03/23/18 23:14 Iohexol (Omnipaque 300 Mg/ml) 60 ml 1X ONCE 03/21/18 23:00 03/21/18 23:01 DC 03/21/18 23:12 60 ML Metoclopramide HCl (Reglan Vial) 10 mg 1X ONCE 03/21/18 22:00 03/21/18 22:01 DC 03/21/18 22:46 10 MG Sodium Chloride 1,000 ml @ 0 mls/hr 1X ONCE 03/21/18 22:00 9/21/18 22:01 DC 03/21/18 22:45 0 MLS/HR Allergies Allergies Allergies Coded Allergies Type Severity Reaction Last Updated Verified bupivacaine Allergy Intermediate Rash 01/08/17 Yes lidocaine Allergy Intermediate Rash 01/08/17 Yes nickel Allergy Intermediate Rash 01/08/17 Yes Physical Exam Physical Exam Constitutional: Well developed, well nourished, no acute distress, non-toxic appearance. HENT: Normocephalic, atraumatic, bilateral external ears normal, oropharynx moist, no oral exudates, nose normal. Neck: Normal range of motion, no tenderness, supple, no stridor. Cardiovascular:Heart rate regular rhythm, no murmur Lungs & Thorax: Bilateral breath sounds clear to auscultation Abdomen: Bowel sounds decreased, diffuse mild tenderness Skin: Warm, dry, no erythema, no rash. Back: No tenderness, no CVA tenderness. Extremities: No tenderness, no cyanosis, no clubbing, ROM intact, no edema. Neurologic: Alert and oriented X 3, normal motor function, normal sensory function, no focal deficits noted. Psychologic: Affect normal, judgement normal, mood normal. Current Patient Data Vital Signs Vital Signs Date Time Temp Pulse Resp B/P (MAP) Pulse Ox O2 Delivery O2 Flow Rate FiO2 03/21/18 20:58 97.7 95 20 121/92 (102) 94 Room Air 97.7 Lab Values Laboratory Tests Test 03/21/18 21:15 03/21/18 21:40 Urine Collection Type Void Urine Color Yellow Urine Clarity Clear Urine pH 5.5 Urine Specific [place] 1.015 Urine Protein Negative mg/dL (NEG-TRACE) Urine Glucose (UA) Negative mg/dL (NEG) Urine Ketones (Stick) Negative mg/dL (NEG) Urine Blood Negative (NEG) Urine Nitrite Negative (NEG) Urine Bilirubin Moderate (NEG) Urine Urobilinogen Dipstick 0.2 mg/dL (0.2 mg/dL) Urine Leukocyte Esterase Moderate (NEG) Urine RBC 0 /HPF (0-2) Urine WBC >40 /HPF (0-4) Urine Squamous Epithelial Cells Few /LPF Urine Bacteria Moderate /HPF (0-FEW) Urine Mucus Slight /LPF White Blood Count 9.3 x10^3/uL (4.0-11.0) Red Blood Count 4.80 x10^6/uL (3.50-5.40) Hemoglobin 14.0 g/dL (12.0-15.5) Hematocrit 40.7 % (36.0-47.0) Mean Corpuscular Volume 85 fL (79-100) Mean Corpuscular Hemoglobin 29 pg (25-35) Mean Corpuscular Hemoglobin Concent 34 g/dL (31-37) Red Cell Distribution Width 14.0 % (11.5-14.5) Platelet Count 203 x10^3/uL (140-400) Neutrophils (%) (Auto) 57 % (31-73) Lymphocytes (%) (Auto) 23 % (24-48) L Monocytes (%) (Auto) 13 % (0-9) H Eosinophils (%) (Auto) 6 % (0-3) H Basophils (%) (Auto) 2 % (0-3) Neutrophils # (Auto) 5.3 x10^3uL (1.8-7.7) Lymphocytes # (Auto) 2.1 x10^3/uL (1.0-4.8) Monocytes # (Auto) 1.2 x10^3/uL (0.0-1.1) H Eosinophils # (Auto) 0.5 x10^3/uL (0.0-0.7) Basophils # (Auto) 0.2 x10^3/uL (0.0-0.2) Sodium Level 142 mmol/L (136-145) Potassium Level 4.1 mmol/L (3.5-5.1) Chloride Level 105 mmol/L (98-107) Carbon Dioxide Level 26 mmol/L (21-32) Anion Gap 11 (6-14) Blood Urea Nitrogen 20 mg/dL (7-20) Creatinine 1.0 mg/dL (0.6-1.0) Estimated GFR (Cockcroft-Gault) 54.8 BUN/Creatinine Ratio 20 (6-20) Glucose Level 96 mg/dL (70-99) Calcium Level 9.5 mg/dL (8.5-10.1) Total Bilirubin 0.4 mg/dL (0.2-1.0) Aspartate Amino Transferase (AST) 20 U/L (15-37) Alanine Aminotransferase (ALT) 29 U/L (14-59) Alkaline Phosphatase 76 U/L (46-116) Creatine Kinase 84 U/L (26-192) Creatine Kinase MB (Mass) 0.8 ng/mL (0.0-3.6) Creatine Kinase MB Relative Index 1.0 % (0-4) Troponin I Quantitative < 0.017 ng/mL (0.000-0.055) LT-Vls-C-Type Natriuretic Peptide 34 pg/mL (0-124) Total Protein 7.0 g/dL (6.4-8.2) Albumin 3.6 g/dL (3.4-5.0) Albumin/Globulin Ratio 1.1 (1.0-1.7) Lipase 172 U/L (73-393) Laboratory Tests 03/21/18 21:40 Laboratory Tests 03/21/18 21:40 EKG EKG [] Radiology/Procedures Radiology/Procedures [] Impressions: PATIENT: JARED ROCK SACCOUNT: [id number]#: [id number] : 1945 LOCATION: ER AGE: 72 SEX: F EXAM STATUS: REG ER ORD. PHYSICIAN: KYLER JOSEPH REASON: Abd pain, vomiting PROCEDURE: CT ABD PELV W/ IV CONTRST ONLY CT scan of the abdomen and pelvis with contrast 03/21/2018 CLINICAL HISTORY: Abdominal pain with nausea and vomiting. TECHNIQUE: After the intravenous administration of 60 cc of Omnipaque 300, contiguous, 5 mm axial sections were obtained through abdomen and pelvis. One or more of the following individualized dose reduction techniques were utilized for this study: 1. Automated exposure control. 2. Adjustment of the mA and/or kV according to patient size. 3. Use of iterative reconstruction technique. FINDINGS: Comparison study is dated 06/17/2017. Images through the lung bases demonstrate minimal dependent subsegmental atelectasis bilaterally. The liver, pancreas, adrenal glands and kidneys are within normal limits. Small calcified granulomas are seen scattered throughout the spleen. Atherosclerotic calcification of the abdominal aorta is seen. The abdominal aorta tapers normally. Calcified gallstones are seen within the gallbladder. No free fluid or free air is seen within the abdomen. Surgical clips are seen within the left upper quadrant of the abdomen. Post surgical changes are seen involving the stomach. No free fluid or free air is seen within the abdomen. There is no evidence of bowel obstruction. The appendix is well-visualized and is within normal limits. Images through the pelvis demonstrate the urinary bladder distended with urine. Calcifications are seen within the pelvis consistent with phleboliths. No free fluid is seen. IMPRESSION: No acute abnormality is seen. Electronically signed by: Xavi Desouza MD (03/21/2018 11:24 PM) [facility] DICTATED and SIGNED BY: XAVI DESOUZA MD DATE: 03/21/18 0905 Course & Med Decision Making Course & Med Decision Making Updated pt and her daughter about results. Labs are reassuring but do show a UTI. Rocephin will be given here in ER. Acute abd series shows large amt of stool and with her N/V, would like to also do CT to make sure no signs of obstruction. Pt is wanting to go home and we discussed that this may be possible if this is constipation and UTI, but we need to do further testing. Pt's care will be transferred over to Minor Araujo NP at 2300. She was informed of pt's presentation and condition. The patient's CT scan results are normal. The patient will be discharged home with an antibiotic for her urinary tract infection. Dragon Disclaimer Dragon Disclaimer This electronic medical record was generated, in whole or in part, using a voice recognition dictation system. Departure Departure Impression: Primary Impression: UTI (urinary tract infection) Additional Impression: Constipation Disposition: 01 HOME, SELF-CARE Condition: STABLE Referrals: YAMILE AYALA MD (PCP) Patient Instructions: Constipation, Adult, Urinary Tract Infection Additional Instructions: Take the medication as prescribed. Follow-up with your primary care provider in one week for urine recheck. If worsening please return to the emergency department. Scripts Sulfamethoxazole/Trimethoprim (BACTRIM DS TABLET) 1 Each Tablet 1 TAB PO BID, #14 TAB Prov: MINOR ARAUJO APRN 03/21/18 Problem Qualifiers KYLER JOSEPH Mar 21, 2018 23:00 MINOR ARAUJO APRN Mar 21, 2018 23:40
[2018-03-21] MEDS ORDERED: CONTRAST GIVEN. MC PRN (23:15)
--- NOTE | 2018-03-21 23:28 | RAD ---
CT scan of the abdomen and pelvis with contrast 03/21/2018 CLINICAL HISTORY: Abdominal pain with nausea and vomiting. TECHNIQUE: After the intravenous administration of 60 cc of Omnipaque 300, contiguous, 5 mm axial sections were obtained through abdomen and pelvis. One or more of the following individualized dose reduction techniques were utilized for this study: 1. Automated exposure control. 2. Adjustment of the mA and/or kV according to patient size. 3. Use of iterative reconstruction technique. FINDINGS: Comparison study is dated 06/17/2017. Images through the lung bases demonstrate minimal dependent subsegmental atelectasis bilaterally. The liver, pancreas, adrenal glands and kidneys are within normal limits. Small calcified granulomas are seen scattered throughout the spleen. Atherosclerotic calcification of the abdominal aorta is seen. The abdominal aorta tapers normally. Calcified gallstones are seen within the gallbladder. No free fluid or free air is seen within the abdomen. Surgical clips are seen within the left upper quadrant of the abdomen. Post surgical changes are seen involving the stomach. No free fluid or free air is seen within the abdomen. There is no evidence of bowel obstruction. The appendix is well-visualized and is within normal limits. Images through the pelvis demonstrate the urinary bladder distended with urine. Calcifications are seen within the pelvis consistent with phleboliths. No free fluid is seen. IMPRESSION: No acute abnormality is seen. Electronically signed by: Xavi Desouza MD (03/21/2018 11:24 PM) [facility]
[2018-03-21] MEDS ORDERED: SULF1TAB24 PO (23:39)
--- NOTE | 2018-03-21 23:53 | EKG ---
[facility] [address] [place] [address] Test Date: 2018-03-21 Test Time: 21:57:04 Pat Name: JARED ROCK Department: Room: Gender: F Amr Physician: Haile : 1945 Requested By: KYLER JOSEPH Order Number: [id number] Reading MD: Hudson Hutchison Measurements Intervals [place] Rate: 71 P: 29 IN: 158 QRS: -27 QRSD: 96 T: 34 QT: 408 QTc: 448 Interpretive Statements SINUS RHYTHM LEFTWARD AXIS QRS(T) CONTOUR ABNORMALITY CONSIDER ANTEROSEPTAL MYOCARDIAL DAMAGE POSSIBLY ABNORMAL ECG Electronically Signed On 03-25-2018 10:52:43 CDT by Hudson Hutchison
== END 2018-03-22 00:10 | disposition home or self-care (01) ==
LOC: ER 20:20
DX: R10.84 Generalized abdominal pain (principal); R11.2 Nausea with vomiting, unspecified; K59.00 Constipation, unspecified; I10 Essential (primary) hypertension; E78.00 Pure hypercholesterolemia, unspecified; J45.909 Unspecified asthma, uncomplicated; F03.90 Unspecified dementia, unspecified severity, without behavioral disturbance, psychotic disturbance, mood disturbance, and anxiety; Z88.4 Allergy status to anesthetic agent; Z88.8 Allergy status to other drugs, medicaments and biological substances; Z91.041 Radiographic dye allergy status
CPT/HCPCS: 36415; 74022; 74177; 80053; 81001; 82553; 83690; 83880; 84484; 85025; 87086; 93005; 96365; 96375; 99285; J0690; J2765; J7030; Q9967

== ENCOUNTER 2018-07-21 10:57 | Emergency (ER) | payer BC, MEDICAID ==
[~2018-07-21] VITALS: Ht 160 cm; Wt 102.1 kg
[~2018-07-21 10:57] MED LIST changes: +LOSA-73 PO; -LOSA50TA7 PO; -OXYC-323 PO; +OXYC1TAB15 PO; +SULF1TAB24 PO
[2018-07-21] MEDS ORDERED: fentaNYL PF VIAL 100 MCG/2 ML VIAL IV ONE (12:30)
[2018-07-21 12:34] LABS: BILIRUBIN,URINE LARGE (NEG); CLARITY,URINE CLEAR; COLOR,URINE YELLOW; NITRITE,URINE NEGATIVE (NEG); PH,URINE 5.5; PROTEIN,URINE NEGATIVE (NEG-TRACE); UROBILINOGEN,URINE 0.2 mg/dL (0.2 mg/dL)
[2018-07-21 12:39] LABS: BASO # 0.1 x10^3/uL (0.0-0.2); BASO % 1 % (0-3); EOS % 1 % (0-3); HEMATOCRIT 41.7 % (36.0-47.0); HEMOGLOBIN 14.3 g/dL (12.0-15.5); LYMPH # 1.3 x10^3/uL (1.0-4.8); LYMPH % 16 % (24-48); MEAN CORPUSCULAR HEMOGLOBIN 29 pg (25-35); MEAN CORPUSCULAR HGB CONC 34 g/dL (31-37); MEAN CORPUSCULAR VOLUME 84 fL (79-100); MONO # 0.6 x10^3/uL (0.0-1.1); MONO % 7 % (0-9); NEUT # 6.3 x10^3uL (1.8-7.7); NEUT % 75 % (31-73); PLATELET COUNT 224 x10^3/uL (140-400); RED BLOOD COUNT 4.99 x10^6/uL (3.50-5.40); RED CELL DISTRIBUTION WIDTH 13.5 % (11.5-14.5); WHITE BLOOD COUNT 8.4 x10^3/uL (4.0-11.0)
--- NOTE | 2018-07-21 12:44 | PHYS DOC ---
Past Medical History Past Medical History: Asthma, Dementia, High Cholesterol, Hypertension Additional Past Medical Histor: "HOLE IN MY COLON" Past Surgical History: Hysterectomy, Knee Replacement, Other Additional Past Surgical Histo: L KNEE REPLACEMENT, BILATERAL ROTATOR CUFF SX Alcohol Use: None Drug Use: None Adult General Chief Complaint Chief Complaint: DIZZY/LIGHT HEADED HPI HPI Patient is a 73 year old female who was sent from her primary care physician office because of neck pain and concern for neck stiffness. Patient states she had a routine appointment with her primary care physician for an physical exam today. Patient states she has had posterior neck pain for more than one year that usually happens with movement of her neck and rated her pain 5/10. Patient state she had numbness of her hands last week that resolved spontaneously. Patient denies injury, headache, fever and chills, focal weakness. Patient's daughter states she has dementia that gradually getting worse recently. Patient taking when necessary hydrocodone for chronic knee pain after knee surgery 1 year ago and states her neck pain getting better with taking hydrocodone. Patient's daughter states the patient complaining of episodes of dizziness for a long time that usually getting worse at night. Review of Systems Review of Systems Constitutional: Denies fever or chills [] Eyes: Denies change in visual acuity, redness, or eye pain [] HENT: Denies nasal congestion or sore throat [] Respiratory: Denies cough or shortness of breath [] Cardiovascular: No additional information not addressed in HPI [] GI: Denies abdominal pain, nausea, vomiting, bloody stools or diarrhea [] : Denies dysuria or hematuria [] Musculoskeletal: Reports neck pain and joint pain Integument: Denies rash or skin lesions [] Neurologic: Denies headache, focal weakness or sensory changes [] Endocrine: Denies polyuria or polydipsia [] All other systems were reviewed and found to be within normal limits, except as documented in this note. Current Medications Current Medications Current Medications Medications (Trade) Dose Ordered Sig/Ginger Start Time Stop Time Status Last Admin Dose Admin Fentanyl Citrate (Fentanyl 2ml Vial) 50 mcg 1X ONCE 07/21/18 12:30 07/21/18 12:31 DC 07/21/18 12:30 50 MCG Allergies Allergies Allergies Coded Allergies Type Severity Reaction Last Updated Verified bupivacaine Allergy Intermediate Rash 01/08/17 Yes lidocaine Allergy Intermediate Rash 01/08/17 Yes nickel Allergy Intermediate Rash 01/08/17 Yes Physical Exam Physical Exam Constitutional: Well developed, well nourished, no acute distress, non-toxic appearance. [] HENT: Normocephalic, atraumati, oropharynx moist, no oral exudates, nose normal. [] Eyes: PERRLA, EOMI, conjunctiva normal, no discharge. [] Neck: Normal range of motion, no midline tenderness, painful paraspinal muscle, neck stiffness, supple, no stridor. [] Cardiovascular:Heart rate regular rhythm, no murmur [] Lungs & Thorax: Bilateral breath sounds clear to auscultation [] Abdomen: Bowel sounds normal, soft, no tenderness, no masses, no pulsatile masses. [] Skin: Warm, dry, no erythema, no rash. [] Back: No tenderness, no CVA tenderness. [] Extremities: No tenderness, no cyanosis, no clubbing, ROM intact, no edema. [] Neurologic: Alert and oriented X 3, normal motor function, normal sensory function, no focal deficits noted. [] Psychologic: Affect normal, judgement normal, mood normal. [] Current Patient Data Vital Signs Vital Signs Date Time Temp Pulse Resp B/P (MAP) Pulse Ox O2 Delivery O2 Flow Rate FiO2 07/21/18 12:30 15 94 Room Air 07/21/18 11:20 98.0 84 123/72 (89) 98.0 Lab Values Laboratory Tests Test 07/21/18 12:08 07/21/18 12:30 Urine Collection Type Unknown Urine Color Yellow Urine Clarity Clear Urine pH 5.5 Urine Specific [place] 1.020 Urine Protein Negative mg/dL (NEG-TRACE) Urine Glucose (UA) Negative mg/dL (NEG) Urine Ketones (Stick) Negative mg/dL (NEG) Urine Blood Negative (NEG) Urine Nitrite Negative (NEG) Urine Bilirubin Large (NEG) Urine Urobilinogen Dipstick 0.2 mg/dL (0.2 mg/dL) Urine Leukocyte Esterase Small (NEG) Urine RBC 1-2 /HPF (0-2) Urine WBC 1-4 /HPF (0-4) Urine Squamous Epithelial Cells Mod /LPF Urine Amorphous Sediment Present /HPF Urine Bacteria 0 /HPF (0-FEW) Urine Hyaline Casts Many /HPF Urine Mucus Marked /LPF White Blood Count 8.4 x10^3/uL (4.0-11.0) Red Blood Count 4.99 x10^6/uL (3.50-5.40) Hemoglobin 14.3 g/dL (12.0-15.5) Hematocrit 41.7 % (36.0-47.0) Mean Corpuscular Volume 84 fL (79-100) Mean Corpuscular Hemoglobin 29 pg (25-35) Mean Corpuscular Hemoglobin Concent 34 g/dL (31-37) Red Cell Distribution Width 13.5 % (11.5-14.5) Platelet Count 224 x10^3/uL (140-400) Neutrophils (%) (Auto) 75 % (31-73) H Lymphocytes (%) (Auto) 16 % (24-48) L Monocytes (%) (Auto) 7 % (0-9) Eosinophils (%) (Auto) 1 % (0-3) Basophils (%) (Auto) 1 % (0-3) Neutrophils # (Auto) 6.3 x10^3uL (1.8-7.7) Lymphocytes # (Auto) 1.3 x10^3/uL (1.0-4.8) Monocytes # (Auto) 0.6 x10^3/uL (0.0-1.1) Eosinophils # (Auto) 0.0 x10^3/uL (0.0-0.7) Basophils # (Auto) 0.1 x10^3/uL (0.0-0.2) Prothrombin Time 12.8 SEC (11.7-14.0) Prothrombin Time INR 1.0 (0.8-1.1) Sodium Level 136 mmol/L (136-145) Potassium Level 4.3 mmol/L (3.5-5.1) Chloride Level 103 mmol/L (98-107) Carbon Dioxide Level 25 mmol/L (21-32) Anion Gap 8 (6-14) Blood Urea Nitrogen 20 mg/dL (7-20) Creatinine 1.2 mg/dL (0.6-1.0) H Estimated GFR (Cockcroft-Gault) 44.3 BUN/Creatinine Ratio 17 (6-20) Glucose Level 99 mg/dL (70-99) Calcium Level 9.2 mg/dL (8.5-10.1) Total Bilirubin 0.4 mg/dL (0.2-1.0) Aspartate Amino Transferase (AST) 22 U/L (15-37) Alanine Aminotransferase (ALT) 25 U/L (14-59) Alkaline Phosphatase 89 U/L (46-116) Total Protein 7.3 g/dL (6.4-8.2) Albumin 3.7 g/dL (3.4-5.0) Albumin/Globulin Ratio 1.0 (1.0-1.7) Laboratory Tests 07/21/18 12:30 Laboratory Tests 07/21/18 12:30 Radiology/Procedures Radiology/Procedures [facility] [address] [place] [address] IMAGING REPORT Signed PATIENT: JARED ROCK ACCOUNT: [id number] : 1945 LOCATION: ER AGE: 73 SEX: F EXAM STATUS: REG ER ORD. PHYSICIAN: YESENIA REYES MD REASON: neck pain PROCEDURE: CT HEAD AND CERVICAL SPINE WO PQRS Compliance statement: One or more of the following individualized dose reduction techniques were utilized for this examination: 1. Automated exposure control. 2. Adjustment of the mA and/or kV according to patient size. 3. Use of iterative reconstruction technique. Indication:neck pain, no known injury, or priors TECHNIQUE: CT head without IV contrast COMPARISON:None FINDINGS: No pathologic extra-axial or intra-axial fluid collection. Mild diffuse cerebral atrophy. The basal cisterns and ventricles are within normal limits. No acute intracranial bleed. No focal loss of shepherd-white differentiation. Orbits are within normal limits. No suspicious bony lesion. Visualized paranasal sinuses and mastoid air cells are clear. IMPRESSION: 1. No acute intracranial processes noncontrast CT. 2. Mild diffuse cerebral atrophy. If concern for acute ischemic stroke is high, please consider MRI brain. Indication:neck pain, no known injury, or priors TECHNIQUE: CT of the cervical spine without IV contrast with multiplanar reformats. COMPARISON:None FINDINGS: Cervical spine is in normal anatomic alignment. Atlantoaxial joint or is preserved with moderate degenerative changes. No compression deformities. Facet joints are in normal anatomic alignment. No acute fractures. The lateral segment analysis: C2-C3: Mild circumferential disc bulge flattening intrathecal sac. Moderate right and mild left facet arthropathy. No neuroforamina narrowing. C3-C4: Central disc protrusion indenting anterior thecal sac. Severe right and mild left facet arthropathy. Severe right neuroforamina narrowing. C4-C5: Mild circumferential disc bulge flattening intrathecal sac. Mild bilateral facet arthropathy. Mild bilateral neuroforamina narrowing. C5-C6: Circumferential disc bulge flattening intrathecal sac. Mild bilateral facet arthropathy. Severe left and moderate right neuroforamina narrowing. There is spinal canal narrowing measuring 6 cm in AP dimension. C7: Mild circumferential disc bulge flattening intrathecal sac. Mild bilateral facet arthropathy. Moderate bilateral neuroforamina narrowing. Visualized apices are clear. The noncontrast appearance of the neck soft tissues is within normal limits. IMPRESSION: 1. No acute cervical spine fractures. 2. Multilevel degenerative disc disease causing varying amount of neuroforaminal narrowing as described above. Electronically signed by: Isaac Romano DO (07/21/2018 1:02 PM) [id number] DICTATED and SIGNED BY: ISAAC ROMANO DO DATE: 07/21/18 1252 Course & Med Decision Making Course & Med Decision Making Pertinent Labs and Imaging studies reviewed. (See chart for details) Evaluation of patient in ER showed 73-year-old female patient with chronic neck pain and dizziness sent from primary care physician office with concern of meningitis. Patient did not have any rigidity or sign of meningitis and labs and CT of head and neck was unremarkable except for DJD mild elevation of creatinine. Patient informed about test results and needs to follow-up with her primary care physician regarding chronic neck pain. Already taking hydrocodone at home and instructed to continue her home pain medication. Dragon Disclaimer Dragon Disclaimer This electronic medical record was generated, in whole or in part, using a voice recognition dictation system. Departure Departure Impression: Primary Impression: DJD (degenerative joint disease), cervical Additional Impressions: Renal insufficiency Dizziness Disposition: HOME, SELF-CARE (at 1436) Condition: IMPROVED Referrals: YAMILE AYALA MD (PCP) Patient Instructions: Chronic Pain, Degenerative Disk Disease, Dizziness Additional Instructions: Drink plenty of liquids Follow-up with your primary care physician in 3-5 days Return to ER if not getting better Continue home pain medication Problem Qualifiers YESENIA REYSE MD Jul 21, 2018 12:44
[2018-07-21 12:45] LABS: HYALINE CASTS, URINE MANY /HPF; SQUAMOUS EPITHELIAL CELL,UR MOD /LPF
[2018-07-21 12:46] LABS: PROTHROMBIN TIME PATIENT 12.8 SEC (11.7-14.0)
[2018-07-21 12:46] LABS: AMORPHOUS SEDIMENT,UR PRESENT /HPF; BACTERIA,URINE 0 /HPF (0-FEW)
[2018-07-21 12:53] LABS: CALCIUM 9.2 mg/dL (8.5-10.1); CREATININE 1.2 mg/dL (0.6-1.0); GFR 44.3; POTASSIUM 4.3 mmol/L (3.5-5.1)
[2018-07-21 12:59] LABS: ALBUMIN 3.7 g/dL (3.4-5.0); TOTAL BILIRUBIN 0.4 mg/dL (0.2-1.0); TOTAL PROTEIN 7.3 g/dL (6.4-8.2)
--- NOTE | 2018-07-21 13:07 | RAD ---
PQRS Compliance statement: One or more of the following individualized dose reduction techniques were utilized for this examination: 1. Automated exposure control. 2. Adjustment of the mA and/or kV according to patient size. 3. Use of iterative reconstruction technique. Indication:neck pain, no known injury, or priors TECHNIQUE: CT head without IV contrast COMPARISON:None FINDINGS: No pathologic extra-axial or intra-axial fluid collection. Mild diffuse cerebral atrophy. The basal cisterns and ventricles are within normal limits. No acute intracranial bleed. No focal loss of shepherd-white differentiation. Orbits are within normal limits. No suspicious bony lesion. Visualized paranasal sinuses and mastoid air cells are clear. IMPRESSION: 1. No acute intracranial processes noncontrast CT. 2. Mild diffuse cerebral atrophy. If concern for acute ischemic stroke is high, please consider MRI brain. Indication:neck pain, no known injury, or priors TECHNIQUE: CT of the cervical spine without IV contrast with multiplanar reformats. COMPARISON:None FINDINGS: Cervical spine is in normal anatomic alignment. Atlantoaxial joint or is preserved with moderate degenerative changes. No compression deformities. Facet joints are in normal anatomic alignment. No acute fractures. The lateral segment analysis: C2-C3: Mild circumferential disc bulge flattening intrathecal sac. Moderate right and mild left facet arthropathy. No neuroforamina narrowing. C3-C4: Central disc protrusion indenting anterior thecal sac. Severe right and mild left facet arthropathy. Severe right neuroforamina narrowing. C4-C5: Mild circumferential disc bulge flattening intrathecal sac. Mild bilateral facet arthropathy. Mild bilateral neuroforamina narrowing. C5-C6: Circumferential disc bulge flattening intrathecal sac. Mild bilateral facet arthropathy. Severe left and moderate right neuroforamina narrowing. There is spinal canal narrowing measuring 6 cm in AP dimension. C7: Mild circumferential disc bulge flattening intrathecal sac. Mild bilateral facet arthropathy. Moderate bilateral neuroforamina narrowing. Visualized apices are clear. The noncontrast appearance of the neck soft tissues is within normal limits. IMPRESSION: 1. No acute cervical spine fractures. 2. Multilevel degenerative disc disease causing varying amount of neuroforaminal narrowing as described above. Electronically signed by: Isaac Romano DO (07/21/2018 1:02 PM) [id number]
[2018-07-21 15:00] VITALS: BP 119/78
== END 2018-07-21 15:26 | disposition home or self-care (01) ==
LOC: ER 10:57
DX: M47.812 Spondylosis without myelopathy or radiculopathy, cervical region (principal); R42 Dizziness and giddiness; N28.9 Disorder of kidney and ureter, unspecified; M43.6 Torticollis; F03.90 Unspecified dementia, unspecified severity, without behavioral disturbance, psychotic disturbance, mood disturbance, and anxiety; J45.909 Unspecified asthma, uncomplicated; E78.00 Pure hypercholesterolemia, unspecified; I10 Essential (primary) hypertension; Z88.4 Allergy status to anesthetic agent; Z88.7 Allergy status to serum and vaccine; Z88.8 Allergy status to other drugs, medicaments and biological substances
CPT/HCPCS: 36415; 70450; 72125; 80053; 81001; 85025; 85610; 96374; 99285; J3010; 87086